=== PATIENT | female | born 2000 | race Caucasian/White ===

== ENCOUNTER 2023-10-18 21:43 | Observation (INO) ==
[2023-10-18 22:20] LABS: Basophils # (auto) 0.04 K/uL (0.00-0.20); Basophils % (auto) 0.3 %; Eosinophils # (auto) 0.01 K/uL (0.00-0.50); Eosinophils % (auto) 0.1 %; Hematocrit (blood only) 36.1 % (37.0-47.0); Hemoglobin 12.7 g/dl (12.0-16.0); Immature Granulocytes # (auto) 0.06 K/uL (0.01-0.20); Immature Granulocytes % (auto) 0.5 %; Lymphocytes # (auto) 1.38 K/uL (1.20-3.40); Lymphocytes % (auto) 10.8 %; Mean Corpuscular Hemoglobin 30.7 pg (25.0-34.0); Mean Corpuscular Hgb Conc 35.2 g/dL (32.0-36.0); Mean Corpuscular Volume 87.2 fL (80.0-100.0); Mean Platelet Volume 8.4 fL (9.4-12.4); Neutrophils # (auto) 10.41 K/uL (1.40-6.50); Neutrophils % (auto) 81.3 %; Platelet Count 322 K/uL (130-400); RDW Coefficient of Variation 11.8 % (11.5-14.5); RDW Standard Deviation 37.5 fL (36.4-46.3); Red Blood Count 4.14 M/uL (4.20-5.40)
[2023-10-18 22:29] LABS: Appearance Urine Turbid (Clear); Bacteria Urine Automated 4+ (None Seen); Bilirubin Urine Negative (Negative); Blood Urine 1+ (Negative); Color Urine Yellow; Glucose Urine UA Negative (Negative); Ketones Urine 3+ (Negative); Leukocyte Esterase Urine 3+ (Negative); Mucus Urine Present (None Prsent); Nitrite Urine Positive (Negative); Protein Urine 1+ (Negative); Specific Gravity Urine 1.017 (1.000-1.030); Urobilinogen Urine Negative (Negative); WBC Urine Automated >50 /hpf (0-5); pH Urine 5.5 (4.5-7.5)
[2023-10-18 22:40] LABS: Alanine Aminotransferase 7 U/L (7-52); Albumin Globulin Ratio 1.4 (0.9-2); Albumin Level 4.5 gm/dl (3.4-5.0); Alkaline Phosphatase 79 U/L (34-104); Anion Gap 9 (3-11); Aspartate Aminotransferase 10 U/L (13-39); BUN Creatinine Ratio 8.6 (10-20); Bilirubin,Total 0.7 mg/dl (0.2-1.0); Blood Urea Nitrogen 5 mg/dl (6-23); Calcium 9.4 mg/dl (8.6-10.3); Carbon Dioxide 24 mmol/L (21-32); Chloride 103 mmol/L (98-107); Creatinine Clr Calc Pharmacy 147.2 ml/min; Est GFR (African American) > 150.0 ml/min; Est GFR (Non-African American) 129.9 ml/min; Globulin 3.2 gm/dl (2.5-4.0); Glucose 99 mg/dl (70-99(Fasting)); Potassium 3.4 mmol/L (3.5-5.1); Sodium 136 mmol/L (136-145); Total Protein 7.7 gm/dl (6.0-8.3)
[2023-10-18] MEDS: ACETAMINOPHEN 500 MG TAB PO STA (23:53)
[2023-10-18] MEDS: fentaNYL citrate PF 100 MCG/2 ML VIAL IV STA (23:53)
[2023-10-18] MEDS: ONDANSETRON INJ 2 MG/ML 2 ML VIAL IV STA (23:53)
[2023-10-18] MEDS: SODIUM CHLORIDE 0.9% 1,000 ML IV SCH (23:56)
[2023-10-19 00:03] LABS: Magnesium 1.7 mg/dl (1.7-2.4)
[2023-10-19] MEDS: cefTRIAXone SODIUM 1,000 MG/50 ML BAG IV STA (00:18)
--- NOTE | 2023-10-19 00:29 | Emergency Department Note ---
Impression & Plan Pyelonephritis affecting in second trimester admit to OB ED Provider Note NAME: SHALA DESAI AGE: 22 SEX: Female INFORMANT: [Patient] ED PROVIDER(S): Nataliia Britt DO CHIEF COMPLAINT: Right flank pain and fever PLAN: Disposition: admit to OB MEDICAL DECISION MAKING: this is a 22-year-old female patient who is 14 weeks who presents to the emergency department with severe right flank pain and fever that started yesterday. patient has a history of previous right-sided renal stone. Patient presents with severe nausea. Temp on presentation was 38.4. Heart rate was in the 120s. Urinalysis appears to be significantly infected. White blood cell count was 12.8. H&H were stable. Potassium was 3.4. Renal function tests were normal. Procalcitonin and lactate were normal. Patient was given a dose of oral Tylenol. She was bolused with 2 L of normal saline solution. She was given a dose of IV fentanyl for severe right-sided flank pain. She was treated with IV Zofran for her nausea. Patient was medicated with a dose of IV Rocephin for presumed right-sided pyelonephritis. Patient had return of the right flank pain and was given a subsequent dose of IV fentanyl. Ultrasound was performed and no right-sided renal or ureteral stone was noted. There was no evidence of hydronephrosis on the right. I discussed the case with the fruit or nut picker on-call and they will admit the patient to the hospital for pain management and IV antibiotics. Care/management discussed with: The patient, her family, the assistant portfolio manager, and the fruit or nut picker. Triage Nursing notes: reviewed and agree With them. Vital Signs: reviewed and remarkable for tachycardia and fever Additional History obtained from: patient's mother who is a nurse Prior/ Outside/ External records reviewed: I did review a previous ultrasound report from ER visit Differential Diagnosis: pyelonephritis, infected ureteral stone, Dehydration Diagnostics, independently interpreted by me: Imaging studies: renal ultrasound: As per stat rad EKG: Sinus tachycardia at a rate of 119 with T wave inversion in the inferior leads which is rate dependent. There is no ectopy. No signs of ischemia. HPI: 22 year old Female arrives for evaluation of right flank pain and fever. patient developed severe right-sided back pain and flank pain 24 hours ago. Approximately 16 hours ago, the patient developed a fever and significant nausea. Patient is 14 weeks and has a known history of a right sided kidney stone. PAST MEDICAL HISTORY: See Below, PAST SURGICAL HISTORY: See Below, SOCIAL HISTORY: See Below, HOME MEDICATIONS: see list ALLERGIES: penicillin VITALS: See Below PHYSICAL EXAMINATION: HEENT: Head - normocephalic and atraumatic. Pupils are equal, round, and reactive to light. Extraocular eye muscles are intact, and sclera are anicteric. Nose - moist nasal mucosa without discharge. Mouth - moist buccal mucosa. Oropharynx is nonerythematous and there is no tonsillar exudate or edema noted. Neck: Supple; no Cervical lymphadenopathy Heart: tachycardic rate and regular rhythm. There is a normal S1 and S2 with no murmurs, clicks, or gallops appreciated. Lungs: Clear to auscultation bilaterally with no wheezes, rales, or rhonchi. Abdomen: Soft, completely nontender, nondistended, with good bowel sounds. There are no palpable pulsatile masses or hepatosplenomegaly. There is no guarding, rigidity, or rebound noted. Extremities: No evidence of cyanosis, clubbing, or edema. There are easily palpable peripheral pulses. Skin: hot and dry with good turgor and no rashes. emergency department treatment: Oral Tylenol, IV normal saline bolus, IV fentanyl, IV Zofran, IV received Rocephin, IV fentanyl emergency department course: The patient was evaluated in room B-8. A complete history and physical was performed. An IV lock was initiated and labs were drawn as above. Patient was given a dose of oral Tylenol. A septic protocol was performed. Blood culture was obtained. Urine specimen was obtained. Patient was bolused with 2 L of normal saline solution. She was given a dose of IV fentanyl for significant right-sided flank pain and back pain along with a dose of IV Zofran for her nausea. Urine appeared to be significantly infected. She was given a dose of IV Rocephin for presumed pyelonephritis. Patient had an ultrasound of the right kidney and collecting system to rule out an obstructing stone. This was negative. Patient had some recurrent right-sided pain and was given a second dose of IV fentanyl. I discussed the case with Dr. Schmitt who is the on-call fruit or nut picker and they will admit the patient to the hospital for IV antibiotics and IV pain management. Past Med/Surg History Problem List (Updated 10/19/23 @ 05:35 by Nataliia Britt DO) Pyelonephritis affecting in second trimester (Acute) Pyelonephritis affecting in second trimester Encounter for anatomic survey Supervision of normal intrauterine in primigravida Low iron Anemia Vitamin D deficiency B12 deficiency Renal cyst MRI- 04/2022--9 mm hemorrhagic versus proteinaceous cyst of the left kidney Abnormal CT scan, kidney CT noted 04/01/22-Heterogeneous enhancement within the kidneys Anxiety Leukocytosis Family history of other cardiovascular diseases Family history of aortic aneurysm and sent to cardiology. Contraceptive surveillance ON OCPS. DENIES FAMILY HISTORY OF BREAST CANCER OR THROMBOTIC DISORDER/STROKE. DENIES SMOKING, MIGRAINES, LIVER DISEASE, ANTICONVULSANTS OR RECENT . Medical History Lyme disease AT AGE 9. Repeat titers in Feb 2019 negative on western blot. Surgical History S/P ACL repair Family History Father Hypertension Myocardial infarction Family history of leukocytosis Diabetes Dyslipidemia Grandfather (Paternal) Aneurysm of abdominal aorta Denies family history of Ovarian cancer Prostate cancer Bipolar disorder Colorectal cancer Social History Smoking Status: Never smoker Second Hand Exposure: No; Do You Dip or Chew Tobacco: No; Hx Alcohol Use: No Hx Substance Use: No Preferred Language: Thai Communication Ability: Effective Visual Impairment: No Limitations Hearing Ability: Normal Supervisor [employer] Required: No Beliefs That Will Affect Care: None marital status: Single marital status details: Douglas (22) [phone] Current Living Situation: Family Current Living Situation Comment: lives with mom and dad, grandmother, 2 cats, gram changing litter current occupational status: employed current occupation: working at [employer] Feels Safe at Home: Yes Safety Concerns: Feels Safe At This Time Childhood Exposure to Second-Hand Smoke: No Diet: regular Diet Comment: regular caffeine: Yes during the past year weight has: remained stable Dental Care, Regularly: Yes Physical Activity Frequency: 5-6 Times per Week Seatbelt Use: always Sunscreen Use: Yes Assistive Devices: Contacts Allergies Allergies Allergy/AdvReac Type Severity Reaction Status Date / Time Penicillins Allergy Mild RASH Verified 10/06/23 08:22 Home Meds Home Medications Medication Instructions Recorded Confirmed [id number] 1 mg tab PO 09/01/23 10/06/23 tablet Previous Rx's Medication Instructions Recorded ondansetron 4 mg disintegrating 4 mg PO Q6H PRN nausea and 09/17/23 tablet vomiting #20 tabs Results & Data (ED) Vital Signs Vital Signs - 24 hr 10/18/23 21:47 10/18/23 21:53 10/18/23 21:59 Temperature 36.7 C 36.8 C Temperature Source Oral Oral Pulse Rate 120 H 123 H Pulse Rate [Apical] 115 H Pulse Rhythm [Apical] Regular Pulse Strength [Apical] Normal Respiratory Rate 20 18 Respiratory Effort / Characteristics Non-Labored Spontaneous Non-Labored Spontaneous Respiratory Depth Normal Normal Respiratory Pattern Regular Blood Pressure 126/83 Blood Pressure [Right Arm] 102/75 Blood Pressure Mean 97 Blood Pressure Mean [Right Arm] 84 Pulse Oximetry 99 100 Oxygen Delivery Method Room Air Room Air Sepsis Recent Fever Within 48 Hours Yes Sepsis New/Unexplained Change in Mental Status No Sepsis Action Taken by Nursing No Action Required 10/18/23 22:03 10/18/23 22:30 10/18/23 23:27 Temperature 38.4 C H Temperature Source Oral Pulse Rate 112 H 108 H Pulse Rate [Apical] 117 H Pulse Rhythm [Apical] Regular Pulse Strength [Apical] Respiratory Rate 19 22 20 Respiratory Effort / Characteristics Respiratory Depth Respiratory Pattern Blood Pressure 102/75 100/65 Blood Pressure [Right Arm] Blood Pressure Mean 84 76 Blood Pressure Mean [Right Arm] Pulse Oximetry 100 100 97 Oxygen Delivery Method Room Air Sepsis Recent Fever Within 48 Hours Sepsis New/Unexplained Change in Mental Status Sepsis Action Taken by Nursing 10/19/23 00:00 10/19/23 01:05 10/19/23 01:07 Temperature 37.3 C Temperature Source Oral Pulse Rate 110 H 117 H Pulse Rate [Apical] Pulse Rhythm [Apical] Pulse Strength [Apical] Respiratory Rate 18 18 Respiratory Effort / Characteristics Respiratory Depth Respiratory Pattern Blood Pressure 115/69 123/74 Blood Pressure [Right Arm] Blood Pressure Mean 84 87 Blood Pressure Mean [Right Arm] Pulse Oximetry 97 98 Oxygen Delivery Method Sepsis Recent Fever Within 48 Hours Sepsis New/Unexplained Change in Mental Status Sepsis Action Taken by Nursing 10/19/23 02:00 10/19/23 02:33 10/19/23 02:43 Temperature 37.3 C Temperature Source Oral Pulse Rate 105 H 101 H Pulse Rate [Apical] Pulse Rhythm [Apical] Pulse Strength [Apical] Respiratory Rate 18 24 Respiratory Effort / Characteristics Respiratory Depth Respiratory Pattern Blood Pressure 120/78 107/63 Blood Pressure [Right Arm] Blood Pressure Mean 88 77 Blood Pressure Mean [Right Arm] Pulse Oximetry 98 98 Oxygen Delivery Method Sepsis Recent Fever Within 48 Hours Sepsis New/Unexplained Change in Mental Status Sepsis Action Taken by Nursing Laboratory Data 10/18/23 22:03 10/18/23 22:03 Lab Results 10/18/23 10/19/23 Range/Units 22:03 00:02 WBC 12.80 H (4.8-10.8) K/ul RBC 4.14 L (4.20-5.40) M/uL Hgb 12.7 (12.0-16.0) g/dl Hct 36.1 L (37.0-47.0) % MCV 87.2 (80.0-100.0) fL MCH 30.7 (25.0-34.0) pg MCHC 35.2 (32.0-36.0) g/dL RDW Std Deviation 37.5 (36.4-46.3) fL RDW Coeff of Herminia 11.8 (11.5-14.5) % Plt Count 322 (130-400) K/uL MPV 8.4 L (9.4-12.4) fL Immature Gran % (Auto) 0.5 % Neut % (Auto) 81.3 % Lymph % (Auto) 10.8 % Elbert % (Auto) 7.0 % Eos % (Auto) 0.1 % Baso % (Auto) 0.3 % Neut # (Auto) 10.41 H (1.40-6.50) K/uL Lymph # (Auto) 1.38 (1.20-3.40) K/uL Elbert # (Auto) 0.90 H (0.11-0.59) K/uL Eos # (Auto) 0.01 (0.00-0.50) K/uL Baso # (Auto) 0.04 (0.00-0.20) K/uL Immature Gran # (Auto) 0.06 (0.01-0.20) K/uL Sodium 136 (136-145) mmol/L Potassium 3.4 L (3.5-5.1) mmol/L Chloride 103 (98-107) mmol/L Carbon Dioxide 24 (21-32) mmol/L Anion Gap 9 (3-11) BUN 5 L (6-23) mg/dl Creatinine 0.58 L (0.6-1.2) mg/dl Est Cr Clr Drug Dosing 147.2 ml/min Est GFR ( Amer) > 150.0 ml/min Est GFR (Non-Af Amer) 129.9 ml/min BUN/Creatinine Ratio 8.6 L (10-20) Glucose 99 (70-99(Fasting)) mg/dl Lactate 0.8 (0.4-2.0) mmol/L Calcium 9.4 (8.6-10.3) mg/dl Magnesium 1.7 (1.7-2.4) mg/dl Total Bilirubin 0.7 (0.2-1.0) mg/dl AST 10 L (13-39) U/L ALT 7 (7-52) U/L Alkaline Phosphatase 79 (34-104) U/L Total Protein 7.7 (6.0-8.3) gm/dl Albumin 4.5 (3.4-5.0) gm/dl Globulin 3.2 (2.5-4.0) gm/dl Albumin/Globulin Ratio 1.4 (0.9-2) Procalcitonin 0.08 (0-0.5) ng/ml Urine Color Yellow Urine Appearance Turbid A (Clear) Urine pH 5.5 (4.5-7.5) Ur Specific [place] 1.017 (1.000-1.030) Urine Protein 1+ H (Negative) Urine Glucose (UA) Negative (Negative) Urine Ketones 3+ H (Negative) Urine Blood 1+ H (Negative) Urine Nitrite Positive A (Negative) Urine Bilirubin Negative (Negative) Urine Urobilinogen Negative (Negative) Ur Leukocyte Esterase 3+ H (Negative) Urine WBC (Auto) >50 H (0-5) /hpf Urine RBC (Auto) 3-5 H (0-2) /hpf U Hyaline Cast (Auto) 3-5 H (0-2) /lpf U Epithel Cells (Auto) 3-5 H (0-2) /hpf Urine Bacteria (Auto) 4+ H (None Seen) Urine Mucus Present A (None Prsent) Administered Medications Acetaminophen (Acetaminophen 325 Mg Tab) 650 mg PO Q4H PRN PRN Reason: Pain or Fever Stop: 11/18/23 04:33 Last Admin: 10/19/23 05:07 Dose: 650 mg Documented By: MARIAMA Ondansetron HCl (Ondansetron Inj 2 Mg/Ml 2 Ml Vial) 4 mg IV Q6H PRN PRN Reason: Nausea And Vomiting Stop: 11/18/23 04:33 Last Admin: 10/19/23 05:07 Dose: 4 mg Documented By: MARIAMA Oxycodone HCl (Oxycodone Hcl Ir 5 Mg Tab (Immediate Release)) 5 mg PO Q4H PRN PRN Reason: Pain Stop: 11/02/23 04:33 Last Admin: 10/19/23 05:07 Dose: 5 mg Documented By: MARIAMA Discontinued Medications Acetaminophen (Acetaminophen 500 Mg Tab) 1,000 mg PO NOW STA Stop: 10/18/23 23:45 Last Admin: 10/18/23 23:53 Dose: 1,000 mg Documented By: BRADLEY Fentanyl Citrate (Fentanyl Citrate Pf 100 Mcg/2 Ml Vial) 50 mcg IV NOW STA Stop: 10/18/23 23:45 Last Admin: 10/18/23 23:53 Dose: 50 mcg Documented By: BRADLEY Fentanyl Citrate (Fentanyl Citrate Pf 100 Mcg/2 Ml Vial) 50 mcg IV NOW STA Stop: 10/19/23 02:55 Last Admin: 10/19/23 03:00 Dose: 50 mcg Documented By: BRADLEY Sodium Chloride (Nss) 1,000 mls @ 999 mls/hr IV .Q1H1M DOROTHEA Stop: 10/19/23 01:45 Last Infusion: 10/19/23 02:03 Dose: Infused Documented By: Admin: 10/19/23 00:57 Dose: 999 mls/hr Documented By: Infusion: 10/19/23 00:57 Dose: Infused Documented By: Admin: 10/18/23 23:56 Dose: 999 mls/hr Documented By: BRADLEY Ceftriaxone Sodium (Rocephin) 1,000 mg in 50 mls @ 100 mls/hr IV NOW STA Stop: 10/19/23 00:17 Last Infusion: 10/19/23 00:57 Dose: Infused Documented By: Admin: 10/19/23 00:18 Dose: 100 mls/hr Documented By: BRADLEY Ondansetron HCl (Ondansetron Inj 2 Mg/Ml 2 Ml Vial) 4 mg IV NOW STA Stop: 10/18/23 23:45 Last Admin: 10/18/23 23:53 Dose: 4 mg Documented By: BRADLEY Imaging Data Radiologist's Impression: Renal Ultrasound 10/18/23 23:45 Exam(s): US RENAL EXAM: US Retroperitoneal Limited, Renal CLINICAL HISTORY: Reason for exam: eval right for obstructing stone. TECHNIQUE: Real-time limited ultrasound of the retroperitoneum with image documentation. COMPARISON: September 17, 2023 FINDINGS: Right kidney: The right kidney measures 10.2 x 4.9 x 4.3 cm with slight pelviectasis. No overt hydronephrosis or nephrolithiasis. Left kidney: Unremarkable. The left kidney measures 10.5 x 6 x 5.9 cm. No hydronephrosis or calculus. Bladder: The urinary bladder is partially distended and unremarkable. The right ureteral jet is visible. IMPRESSION: The right kidney measures 10.2 x 4.9 x 4.3 cm with slight pelviectasis. No overt hydronephrosis or nephrolithiasis is seen involving either kidney. Electronically signed by: Mike Evans MD 10/19/23 02:27 AM Discharge Plan Visit Data Chief Complaint: Kidney Stone Stated Complaint: KIDNEY STONE ED Provider: Nataliia Britt Discharge Problem: Pyelonephritis affecting in second trimester Patient Disposition: Admitted As Inpatient Discharge Instructions Interventions: ED Discharge Assessment Last Done: 10/19/23 03:25
--- NOTE | 2023-10-19 02:28 | Ultrasound Report ---
Exam(s): US RENAL EXAM: US Retroperitoneal Limited, Renal CLINICAL HISTORY: Reason for exam: eval right for obstructing stone. TECHNIQUE: Real-time limited ultrasound of the retroperitoneum with image documentation. COMPARISON: September 17, 2023 FINDINGS: Right kidney: The right kidney measures 10.2 x 4.9 x 4.3 cm with slight pelviectasis. No overt hydronephrosis or nephrolithiasis. Left kidney: Unremarkable. The left kidney measures 10.5 x 6 x 5.9 cm. No hydronephrosis or calculus. Bladder: The urinary bladder is partially distended and unremarkable. The right ureteral jet is visible. IMPRESSION: The right kidney measures 10.2 x 4.9 x 4.3 cm with slight pelviectasis. No overt hydronephrosis or nephrolithiasis is seen involving either kidney. Electronically signed by: Mike Evans MD 10/19/23 02:27 AM
[2023-10-19] MEDS: fentaNYL citrate PF 100 MCG/2 ML VIAL IV STA (03:00)
--- NOTE | 2023-10-19 03:22 | OB/GYN Consultation ---
Date of Consultation October 19, 2023 Assessment & Plan (1) Pyelonephritis affecting in second trimester: Plan plan obs and monitor response to abx. recheck labs. pain meds prn. allow po as n/v subsides. fhts qshift. History of Present Illness Reason for Consultation: pyelonephritis in Requesting Physician: Dr. Britt Attending Physician: Dr. Britt History of Present Illness 22yo at 14wks ega presented to ER with flank pain and findings concerning for pyelonephritis. Patient came to ER when for 2 days she had unrelenting back pain. Has had nausea in that time and has not eaten. She has history of right renal stone noted since last month and thought her right sided pain were due to that and tried to push fluids and give time but when nothing changed came to ER. Evaluation in ER included elevated temp. Patient had ua concerning for uti, as well as right sided flank pain. Suspected to have pyelonephritis by ER MD and I was called. Given rocephin in ER and using iv pain meds to manage pain. Of note also continues with nausea. She does note a history of pyelo about a year ago. Did not have dysuria, urgency or freq of urination or hematuria with her presentation, just back pain and nausea. Allergies Allergy/AdvReac Type Severity Reaction Status Date / Time Penicillins Allergy Mild RASH Verified 10/06/23 08:22 Home Medications Medication Instructions Recorded Confirmed Type [id number] 1 mg tab PO 09/01/23 10/06/23 History tablet ondansetron 4 mg disintegrating 4 mg PO Q6H PRN nausea and 09/17/23 10/06/23 Rx tablet vomiting #20 tabs Patient History Medical History Lyme disease AT AGE 9. Repeat titers in Feb 2019 negative on western blot. Surgical History S/P ACL repair Family History Father Hypertension Myocardial infarction Family history of leukocytosis Diabetes Dyslipidemia Grandfather (Paternal) Aneurysm of abdominal aorta Denies family history of Ovarian cancer Prostate cancer Bipolar disorder Colorectal cancer Social History Smoking Status: Never smoker Second Hand Exposure: No; Do You Dip or Chew Tobacco: No; Hx Alcohol Use: No Hx Substance Use: No Preferred Language: Burundian Communication Ability: Effective Visual Impairment: No Limitations Hearing Ability: Normal Exercise Equipment Repair Technician Required: No Beliefs That Will Affect Care: None marital status: Single marital status details: Douglas (22) [phone] Current Living Situation: Family Current Living Situation Comment: lives with mom and dad, grandmother, 2 cats, gram changing litter current occupational status: employed current occupation: working at [employer] Feels Safe at Home: Yes Safety Concerns: Feels Safe At This Time Childhood Exposure to Second-Hand Smoke: No Diet: regular Diet Comment: regular caffeine: Yes during the past year weight has: remained stable Dental Care, Regularly: Yes Physical Activity Frequency: 5-6 Times per Week Seatbelt Use: always Sunscreen Use: Yes Assistive Devices: Contacts Review of Systems Constitutional: as per Subjective / HPI Physical Exam Constitutional: WD/WN, vitals as above Respiratory: normal respiratory effort, lungs clear to auscultation Cardiovascular: Rate/Rhythm: regular rate and regular rhythm Gastrointestinal (Abdomen): soft nt Musculoskeletal: no edema nontender calves Neurologic: grossly normal Psychiatric: A+Ox3, euthymic affect Genitourinary: + CVA tenderness (right) Results & Data Vital Signs (Past 12 Hours) Vital Signs Temp Pulse Pulse Resp BP BP Pulse Ox 10/19/23 02:43 99.1 F 10/19/23 02:33 101 H 24 107/63 98 10/19/23 02:00 105 H 18 120/78 98 10/19/23 01:07 99.1 F 10/19/23 01:05 117 H 18 123/74 98 10/19/23 00:00 110 H 18 115/69 97 10/18/23 23:27 101.1 F H 117 H 20 97 10/18/23 22:30 108 H 22 100/65 100 10/18/23 22:03 112 H 19 102/75 100 10/18/23 21:59 123 H 10/18/23 21:53 98.2 F 115 H 18 102/75 100 10/18/23 21:47 98.1 F 120 H 20 126/83 99 O2 Del Method 10/19/23 02:43 10/19/23 02:33 10/19/23 02:00 10/19/23 01:07 10/19/23 01:05 10/19/23 00:00 10/18/23 23:27 Room Air 10/18/23 22:30 10/18/23 22:03 10/18/23 21:59 10/18/23 21:53 Room Air 10/18/23 21:47 Room Air PG Care Time/CCT Total # of Minutes Spent Total Time Spent with Patient: Total time spent is greater than 50% in coordination of care (as documented) at patient's floor/unit and/or counseling patient: Coding Level of Care Code 45093 INT INP/OBS CARE 2/55MIN Diagnoses Pyelonephritis affecting in second trimester O23.02
[2023-10-19] MEDS: ACETAMINOPHEN 325 MG TAB PO PRN (05:07)
[2023-10-19] MEDS: oxyCODONE HCL IR 5 MG TAB (IMMEDIATE RELEASE) PO PRN (05:07)
[2023-10-19] MEDS: ONDANSETRON INJ 2 MG/ML 2 ML VIAL IV PRN (05:07)
[2023-10-19 06:14] LABS: Basophils # (auto) 0.03 K/uL (0.00-0.20); Basophils % (auto) 0.2 %; Hematocrit (blood only) 31.5 % (37.0-47.0); Hemoglobin 11.2 g/dl (12.0-16.0); Immature Granulocytes # (auto) 0.06 K/uL (0.01-0.20); Immature Granulocytes % (auto) 0.4 %; Lymphocytes # (auto) 1.32 K/uL (1.20-3.40); Lymphocytes % (auto) 9.7 %; Mean Corpuscular Hgb Conc 35.6 g/dL (32.0-36.0); Mean Corpuscular Volume 87.3 fL (80.0-100.0); Mean Platelet Volume 8.7 fL (9.4-12.4); Monocytes # (auto) 1.25 K/uL (0.11-0.59); Monocytes % (auto) 9.2 %; Neutrophils # (auto) 10.88 K/uL (1.40-6.50); Neutrophils % (auto) 80.5 %; Platelet Count 288 K/uL (130-400); RDW Coefficient of Variation 11.6 % (11.5-14.5); RDW Standard Deviation 37.2 fL (36.4-46.3); Red Blood Count 3.61 M/uL (4.20-5.40); White Blood Count 13.54 K/ul (4.8-10.8)
[2023-10-19] MEDS: MoRPHine SULFATE 2 MG/ML CARP IV PRN (09:43)
[2023-10-19] MEDS: LACTATED RINGER'S 1,000 ML IV SCH (09:44)
--- NOTE | 2023-10-19 13:29 | Electrocardiogram Report ---
Test Reason : Blood Pressure : */* mmHG Vent. Rate : 119 BPM Atrial Rate : 119 BPM P-R Int : 120 ms QRS Dur : 78 ms QT Int : 328 ms P-R-T Axes : 46 72 -8 degrees QTcB Int : 461 ms Sinus tachycardia Nonspecific ST and T wave abnormality Abnormal ECG Confirmed by Jayden Everett ([id number]) on 10/19/2023 1:29:26 PM Referred By: REFERRED SELF Confirmed By: Jayden Everett
[2023-10-19] MEDS: cefTRIAXone SODIUM 1,000 MG/50 ML BAG IV SCH (22:06)
[2023-10-20] MEDS: PROMETHAZINE 25 MG/51 ML BAG IV PRN (01:25)
[2023-10-20 07:03] LABS: Basophils # (auto) 0.03 K/uL (0.00-0.20); Basophils % (auto) 0.2 %; Eosinophils # (auto) 0.02 K/uL (0.00-0.50); Eosinophils % (auto) 0.2 %; Hematocrit (blood only) 30.6 % (37.0-47.0); Hemoglobin 10.6 g/dl (12.0-16.0); Immature Granulocytes # (auto) 0.06 K/uL (0.01-0.20); Immature Granulocytes % (auto) 0.5 %; Lymphocytes # (auto) 1.93 K/uL (1.20-3.40); Mean Corpuscular Hemoglobin 30.4 pg (25.0-34.0); Mean Corpuscular Hgb Conc 34.6 g/dL (32.0-36.0); Mean Corpuscular Volume 87.7 fL (80.0-100.0); Mean Platelet Volume 8.5 fL (9.4-12.4); Monocytes # (auto) 1.05 K/uL (0.11-0.59); Monocytes % (auto) 8.2 %; Neutrophils # (auto) 9.79 K/uL (1.40-6.50); Neutrophils % (auto) 75.9 %; Platelet Count 259 K/uL (130-400); RDW Coefficient of Variation 11.9 % (11.5-14.5); RDW Standard Deviation 38.1 fL (36.4-46.3); Red Blood Count 3.49 M/uL (4.20-5.40); White Blood Count 12.88 K/ul (4.8-10.8)
--- NOTE | 2023-10-20 07:24 | Obstetrical Progress Note ---
Date of Service October 20, 2023 Assessment & Plan (1) Pyelonephritis affecting in second trimester: Plan: Plan to continue rocephin until 24-48h afebrile. Continue daily FHT. Admission and Anticipated Discharge Date Admission Date: October 19, 2023 Subjective Awake in bed this morning. Feeling somewhat better - has not felt feverish since yesterday (last recorded fever 38.1 @ 1337). Minimal appetite, some nausea, no vomiting. Has been doing ok with PO fluids. Physical Exam Physical Exam: Gen AAOx3 NAD Abd: soft, 14w gravid Ext: no edema Results & Data Vital Signs (Past 12 Hours) Vital Signs Temp Pulse Resp BP Pulse Ox O2 Del Method 10/20/23 04:45 36.8 C 103 H 14 97/51 L 97 Room Air 10/20/23 01:00 36.8 C 109 H 16 116/66 97 Room Air 10/19/23 19:45 36.6 C 97 H 16 111/76 98 Room Air PG Care Time/CCT Total # of Minutes Spent Total Time Spent with Patient: Total time spent is greater than 50% in coordination of care (as documented) at patient's floor/unit and/or counseling patient: Coding Level of Care Code None Diagnoses Pyelonephritis affecting in second trimester O23.02
[2023-10-20 18:55] VITALS: O2SAT 98
[2023-10-20 23:00] VITALS: PULSE 87; RESP 16; TEMP 98.1
[2023-10-21 05:41] VITALS: BP 108/66
--- NOTE | 2023-10-21 08:55 | Obstetrical Progress Note ---
Date of Service October 21, 2023 Assessment & Plan (1) Pyelonephritis affecting in second trimester: Plan: ready for discharge today script sent for Keflex 500mg [id number] for 7 days follow up in office in 2 weeks for JOSE visit - sooner if any fever, flank pain or other concerns will do JARON urine after finishes Keflex- 3-5 days after she is done with the antibiotic. Admission and Anticipated Discharge Date Admission Date: October 19, 2023 Subjective feels well this morning. no flank pain. no fever or chills. afebrile for over 36 hours. no bleeding or cramping Review of Systems Review of Systems: All systems reviewed & are unremarkable except as noted in HPI & below Physical Exam Constitutional: WD/WN, vitals as above Musculoskeletal: no CVAT bilaterally Psychiatric: A+Ox3, euthymic affect Results & Data Vital Signs (Past 12 Hours) Vital Signs Temp Pulse Resp BP BP Pulse Ox O2 Del Method 10/21/23 05:39 98.1 F 87 16 96/51 L 108/66 98 10/20/23 22:59 98.1 F 87 16 96/51 L 98 Room Air PG Care Time/CCT Total # of Minutes Spent Total Time Spent with Patient: Total time spent is greater than 50% in coordination of care (as documented) at patient's floor/unit and/or counseling patient: Coding Level of Care Code 96481 SUB INP/OBS CARE 25MIN Diagnoses Pyelonephritis affecting in second trimester O23.02
--- NOTE | 2023-10-25 17:01 | Discharge Summary ---
Date of Service Date of admission: October 19, 2023 Date of discharge: Oct 21, 2023 Admission HPI Per Admitting Provider 22yo at 14wks caroline presented to ER with flank pain and findings concerning for pyelonephritis. Patient came to ER when for 2 days she had unrelenting back pain. Has had nausea in that time and has not eaten. She has history of right renal stone noted since last month and thought her right sided pain were due to that and tried to push fluids and give time but when nothing changed came to ER. Evaluation in ER included elevated temp. Patient had ua concerning for uti, as well as right sided flank pain. Suspected to have pyelonephritis by ER MD and I was called. Given rocephin in ER and using iv pain meds to manage pain. Of note also continues with nausea. She does note a history of pyelo about a year ago. Did not have dysuria, urgency or freq of urination or hematuria with her presentation, just back pain and nausea. Discharge Data Consultations 10/19/23 03:03 ED Decision to Admit Stat Hospital Course (1) Pyelonephritis affecting in second trimester: The patient was admittted and continued on IV rocephin daily. Her urine culture returned and organism sensitive to this antibiotic. She remained afebrile x >36hrs and had improvement in flank pain and was stable for discharge home on her hd #3. She was given script for course of oral antibiotics, keflex x one week and told to followup in the office in 2weeks. Coding Level of Care Code None Diagnoses Pyelonephritis affecting in second trimester O23.02
== END 2023-10-21 07:15 | disposition home or self-care (01) ==
LOC: 4E1 21:43 → ED 21:43 → 4E1 10-19 03:25

== ENCOUNTER 2024-03-09 04:28 | Inpatient (IN) ==
--- NOTE | 2024-03-09 04:49 | Emergency Department Note ---
Impression & Plan Fever, Back pain, , Pyelonephritis ED Provider Note ED Provider Note NAME: SHALA DESAI AGE:23 SEX: Female : 2000 ARRIVES VIA: Private vehicle INFORMANT: Patient ED PROVIDER(s): Carly Weir DO CHIEF COMPLAINT: Fever, back pain, HPI: This is a 23-year-old female G1, P0 at 34 weeks who presents to the emergency department due to concern for fever and back pain. Patient states she first began feeling unwell early Tuesday morning. She states fevers developed and got as high as 102 F. She developed increased back pain that feels similar to a prior episode of pyelonephritis when she was only 16 weeks . She states she has had recurrent UTIs throughout the and was placed on Macrobid prophylactically. She states earlier in February she did have norovirus additionally. She states she has been drinking fluids but has not otherwise had an appetite or been eating much in the way of solids. She states she is still feeling baby move. She does follow with Sherri Skinner LOSS CONTROL REPRESENTATIVE. No recent leg swelling, no overt vomiting, no worsening URI symptoms. PAST MEDICAL HISTORY:See Below PAST SURGICAL HISTORY:See Below FAMILY HISTORY:See Below SOCIAL HISTORY:See Below HOME MEDICATIONS:See Below ALLERGIES:See Below VITALS:See Below PHYSICAL EXAMINATION: GENERAL: alert, ill appearing, well nourished, no distress, non-toxic EYE EXAM: normal conjunctiva, PERRL and EOM's grossly intact OROPHARYNX: no exudate, no erythema, lips, buccal mucosa, and tongue normal and mucous membranes are moist NECK: supple, no nuchal rigidity, no adenopathy, non-tender LUNGS: Clear to auscultation. Normal chest wall mechanics, no w/r/r HEART: no murmurs, S1 normal and S2 normal ABDOMEN: abdomen soft, non-tender, normo-active bowel sounds, no rebound or guarding. Fundus palpable a few centimeters below the xiphoid process BACK: Back is symmetrical on inspection and there is no deformity, no midline tenderness, no CVA tenderness. SKIN: no rashes, petechiae, orbruising UPPER EXTREMITIES: upper extremities are grossly normal. FROM, nml pulses b/l. LOWER EXTREMITIES: No pitting edema. FROM, nml pulses b/l. NEURO EXAM: Normal sensorium, cranial nerves II-XII grossly intact, normal speech, no facial droop,nogross weakness of arms, no gross weakness of legs. Gross sensation intact. No ataxia. Vital Signs: reviewed and remarkable Differential Diagnosis: uti, pyelo, viral syndrome, dehydration, margaux, sepsis, ureterolithiasis, pna, as well as others were considered MEDICAL DECISION MAKING: This is a 23 yo female at 35 weeks who presents with back pain, fevers, hx of UTI. She was afebrile but tachycardic and ill appearing on arrival. Labs drawn and sent, IV established, EKG performed and interpreted at bedside, and patient placed on telemetry. Urine collected and viral swab performed additionally. Patient had tylenol captain/airline pilot. She was started on IVF and sent for US renal due to concern for recurrent pyelo. She has been on prophylactic antibiotics due to recurrent UTI's. Patient HR began to improve on IVF. While she was at US I reviewed urine cultures and discussed antibiotic choice with the pharmacist. A second liter given, cultures and lactic acid added and she was given IV antibiotics. I contacted pesticide control inspector rock crushing machine operator due to concern for pyelonephritis in a 3rd trimester patient and risk of labor. Given reported fever at home, tachycardia, and urinary source of infection, patient likely with evolving sepsis. She had a significantly elevated leukocytosis and procal. She received >2L IVF which is greater than 30 ml/kg based on IBW. Patient and family updated on all results at bedside. We discussed need for further inpatient evaluation and mgmt and they were in agreement. Consultation(s): 0544: Discussed with Dr. Adams, LOSS CONTROL REPRESENTATIVE, via [place] text. Will admit the patient to their service. ER Treatment Provided: See below Diagnostics Interpreted By Me: -ECG: Sinus tachycardia 109, normal axis, normal intervals, no acute ST/T wave changes -Cardiac Monitoring: An order was placed for continuous cardiac monitoring. The monitor shows a rate of 142 with sinus tachycardia rhythm. -Laboratory studies: As stated above and show below. -Imaging studies: US: +b/l hydro, no stone Triage Nursing Note Reviewed Prior/Outside Records Reviewed Past Med/Surg History Problem List (Updated 03/11/24 @ 17:40 by Carly eWir DO) Pyelonephritis (Acute) 34 weeks gestation of C. difficile diarrhea Pyelonephritis complicating in third trimester (Acute) Back pain (Acute) Fever (Acute) Gestational diabetes Pyelonephritis affecting in second trimester (Acute) Pyelonephritis affecting in second trimester Encounter for anatomic survey Supervision of normal intrauterine in primigravida Low iron Anemia Vitamin D deficiency B12 deficiency Renal cyst MRI- 04/2022--9 mm hemorrhagic versus proteinaceous cyst of the left kidney Abnormal CT scan, kidney CT noted 04/01/22-Heterogeneous enhancement within the kidneys Anxiety Leukocytosis Family history of other cardiovascular diseases Family history of aortic aneurysm and sent to cardiology. Contraceptive surveillance ON OCPS. DENIES FAMILY HISTORY OF BREAST CANCER OR THROMBOTIC DISORDER/STROKE. DENIES SMOKING, MIGRAINES, LIVER DISEASE, ANTICONVULSANTS OR RECENT . Medical History Lyme disease AT AGE 9. Repeat titers in Feb 2019 negative on western blot. Surgical History S/P ACL repair Family History Father Hypertension Myocardial infarction Family history of leukocytosis Diabetes Dyslipidemia Grandfather (Paternal) Aneurysm of abdominal aorta Denies family history of Ovarian cancer Prostate cancer Bipolar disorder Colorectal cancer Social History Smoking Status: Never smoker Second Hand Exposure: No; Do You Dip or Chew Tobacco: No; Hx Alcohol Use: No Hx Substance Use: No Preferred Language: [place] Communication Ability: Effective Visual Impairment: No Limitations Hearing Ability: Normal Auto Travel Counselor Required: No Beliefs That Will Affect Care: None marital status: Single marital status details: Douglas (22) [phone] Current Living Situation: Parent Current Living Situation Comment: lives with mom and dad, grandmother, 2 cats, gram changing litter current occupational status: employed current occupation: working at [employer] Feels Safe at Home: Yes Childhood Exposure to Second-Hand Smoke: No Diet: regular Diet Comment: regular caffeine: Yes during the past year weight has: remained stable Dental Care, Regularly: Yes Physical Activity Frequency: 5-6 Times per Week Seatbelt Use: always Sunscreen Use: Yes Assistive Devices: None Allergies Allergies Allergy/AdvReac Type Severity Reaction Status Date / Time Penicillins Allergy Mild RASH Verified 03/09/24 08:15 Home Meds Home Medications Medication Instructions Recorded Confirmed [id number] 1 mg 1 tab PO DAILY 09/01/23 03/09/24 tablet Previous Rx's Medication Instructions Recorded ondansetron 4 mg disintegrating 4 mg PO Q6H PRN nausea and 10/21/23 tablet vomiting #20 tabs acetone (urine) test (Ketone Urine #50 ea 12/08/23 Test strips) blood sugar diagnostic (OneTouch #150 ea 12/08/23 Verio test strips) lancets 33 gauge (OneTouch Delica #150 ea 12/08/23 Plus Lancet) blood-glucose meter (OneTouch #1 ea 01/02/24 Verio Reflect Meter) nitrofurantoin 100 mg PO DAILY #30 caps 02/29/24 monohydrate/macrocrystals 100 mg capsule (Macrobid) Results & Data (ED) Vital Signs Vital Signs - 24 hr 03/09/24 04:30 03/09/24 04:49 Temperature 36.7 C Temperature Source Oral Pulse Rate 142 H 122 H Respiratory Rate 18 Respiratory Effort / Characteristics Non-Labored Spontaneous Respiratory Depth Normal Blood Pressure 112/76 Blood Pressure Mean 88 Pulse Oximetry 97 Oxygen Delivery Method Room Air Sepsis Recent Fever Within 48 Hours Yes Sepsis New/Unexplained Change in Mental Status No Sepsis Action Taken by Nursing No Action Required Laboratory Data 03/11/24 06:41 03/11/24 06:41 Lab Results 03/09/24 03/09/24 03/09/24 Range/Units 04:42 05:54 06:10 WBC 26.68 H (4.8-10.8) K/ul RBC 4.25 (4.20-5.40) M/uL Hgb 12.4 (12.0-16.0) g/dl Hct 35.7 L (37.0-47.0) % MCV 84.0 (80.0-100.0) fL MCH 29.2 (25.0-34.0) pg MCHC 34.7 (32.0-36.0) g/dL RDW Std Deviation 37.2 (36.4-46.3) fL RDW Coeff of Herminia 12.4 (11.5-14.5) % Plt Count 359 (130-400) K/uL MPV 8.9 L (9.4-12.4) fL Immature Gran % (Auto) 0.7 % Neut % (Auto) 87.3 % Lymph % (Auto) 3.7 % Cowley % (Auto) 7.9 % Eos % (Auto) 0.3 % Baso % (Auto) 0.1 % Neut # (Auto) 23.26 H (1.40-6.50) K/uL Lymph # (Auto) 1.00 L (1.20-3.40) K/uL Cowley # (Auto) 2.11 H (0.11-0.59) K/uL Eos # (Auto) 0.09 (0.00-0.50) K/uL Baso # (Auto) 0.04 (0.00-0.20) K/uL Immature Gran # (Auto) 0.18 (0.01-0.20) K/uL Dohle Bodies Polychromasia 1+ Echinocytes Sodium 133 L (136-145) mmol/L Potassium 2.9 L (3.5-5.1) mmol/L Chloride 103 (98-107) mmol/L Carbon Dioxide 18 L (21-32) mmol/L Anion Gap 12 H (3-11) BUN 5 L (6-23) mg/dl Creatinine 0.76 (0.6-1.2) mg/dl Est Cr Clr Drug Dosing 114.3 ml/min eGFR 112.15 BUN/Creatinine Ratio 6.6 L (10-20) Glucose 169 H (70-99(Fasting)) mg/dl Lactate 1.1 (0.4-2.0) mmol/L Calcium 8.5 L (8.6-10.3) mg/dl Magnesium 1.3 L (1.7-2.4) mg/dl Total Bilirubin 1.6 H (0.2-1.0) mg/dl AST 13 (13-39) U/L ALT 10 (7-52) U/L Alkaline Phosphatase 154 H (34-104) U/L Total Protein 7.0 (6.0-8.3) gm/dl Albumin 3.5 (3.4-5.0) gm/dl Globulin 3.5 (2.5-4.0) gm/dl Albumin/Globulin Ratio 1.0 (0.9-2) Lipase 15 (11-82) U/L Procalcitonin 36.90 H (0-0.5) ng/ml Urine Color [place] Urine Appearance Cloudy A (Clear) Urine pH 5.5 (4.5-7.5) Ur Specific [place] 1.020 (1.000-1.030) Urine Protein 2+ H (Negative) Urine Glucose (UA) Negative (Negative) Urine Ketones 4+ H (Negative) Urine Blood 2+ H (Negative) Urine Nitrite Negative (Negative) Urine Bilirubin 1+ H (Negative) Urine Urobilinogen Negative (Negative) Ur Leukocyte Esterase 2+ H (Negative) Urine WBC (Auto) >50 H (0-5) /hpf Urine RBC (Auto) >20 H (0-2) /hpf U Hyaline Cast (Auto) 0-2 (0-2) /lpf U Epithel Cells (Auto) 3-5 H (0-2) /hpf Urine Bacteria (Auto) 2+ H (None Seen) Stl C. diff Tox B Gene (Neg) Stl C.difficile Tox A&B (Negative) Treponema pallidum Ab (Negative) Adenovirus (PCR) Not Detected (NotDetected) B. pertussis DNA (PCR) Not Detected (NotDetected) B.parapertussis DNA PCR Not Detected (NotDetected) C. pneumoniae DNA (PCR) Not Detected (NotDetected) Coronavirus OC43 (PCR) Not Detected (NotDetected) Coronavirus HKU1 (PCR) Not Detected (NotDetected) Coronavirus 229E (PCR) Not Detected (NotDetected) SARS-CoV-2 (PCR) Not Detected (NotDetected) Coronavirus NL63 (PCR) Not Detected (NotDetected) Enterobacterales (PCR) DETECTED A (NotDetected) Human Metapneumovir PCR Not Detected (NotDetected) Influenza Type A (PCR) Not Detected (NotDetected) Influenza Type B (PCR) Not Detected (NotDetected) K. pneumoniae group (PCR) DETECTED A (NotDetected) M. pneumoniae (PCR) Not Detected (NotDetected) Parainfluenza 1 (PCR) Not Detected (NotDetected) Parainfluenza 2 (PCR) Not Detected (NotDetected) Parainfluenza 3 (PCR) Not Detected (NotDetected) Parainfluenza 4 (PCR) Not Detected (NotDetected) RSV (PCR) Not Detected (NotDetected) Entero/Rhino (PCR) Not Detected (NotDetected) mcr-1 Colistin Res Gene PCR Not Detected (NotDetected) blaIMP Car res Gene PCR Not Detected (NotDetected) KPC-Carbap Res Gene PCR Not Detected (NotDetected) blaNDM Car Res Gene PCR Not Detected (NotDetected) OXA-48 Carbapenem Resis Gene (PCR) Not Detected (NotDetected) blaVIM Car Res Gene PCR Not Detected (NotDetected) CTX-M Gene Resistance (PCR) DETECTED A* (NotDetected) Bld Cult ID Panel PCR See PCR Comment (NotDetected) 03/09/24 03/09/24 03/09/24 Range/Units 07:57 12:50 15:50 WBC 26.04 H (4.8-10.8) K/ul RBC 3.66 L (4.20-5.40) M/uL Hgb 10.7 L (12.0-16.0) g/dl Hct 31.3 L (37.0-47.0) % MCV 85.5 (80.0-100.0) fL MCH 29.2 (25.0-34.0) pg MCHC 34.2 (32.0-36.0) g/dL RDW Std Deviation 39.5 (36.4-46.3) fL RDW Coeff of Herminia 12.7 (11.5-14.5) % Plt Count 304 (130-400) K/uL MPV 8.9 L (9.4-12.4) fL Immature Gran % (Auto) 1.3 % Neut % (Auto) 86.8 % Lymph % (Auto) 4.3 % Cowley % (Auto) 7.5 % Eos % (Auto) 0.0 % Baso % (Auto) 0.1 % Neut # (Auto) 22.59 H (1.40-6.50) K/uL Lymph # (Auto) 1.12 L (1.20-3.40) K/uL Cowley # (Auto) 1.96 H (0.11-0.59) K/uL Eos # (Auto) 0.00 (0.00-0.50) K/uL Baso # (Auto) 0.03 (0.00-0.20) K/uL Immature Gran # (Auto) 0.34 H (0.01-0.20) K/uL Dohle Bodies Polychromasia Echinocytes Sodium 135 L (136-145) mmol/L Potassium 3.6 D (3.5-5.1) mmol/L Chloride 110 H (98-107) mmol/L Carbon Dioxide 17 L (21-32) mmol/L Anion Gap 8 (3-11) BUN 4 L (6-23) mg/dl Creatinine 0.59 L (0.6-1.2) mg/dl Est Cr Clr Drug Dosing 149.5 ml/min eGFR 128.98 BUN/Creatinine Ratio 6.8 L (10-20) Glucose 98 (70-99(Fasting)) mg/dl Lactate 1.1 (0.4-2.0) mmol/L Calcium 8.0 L (8.6-10.3) mg/dl Magnesium 1.9 (1.7-2.4) mg/dl Total Bilirubin 0.7 D (0.2-1.0) mg/dl AST 11 L (13-39) U/L ALT 9 (7-52) U/L Alkaline Phosphatase 124 H (34-104) U/L Total Protein 5.7 L (6.0-8.3) gm/dl Albumin 2.9 L (3.4-5.0) gm/dl Globulin 2.8 (2.5-4.0) gm/dl Albumin/Globulin Ratio 1.0 (0.9-2) Lipase (11-82) U/L Procalcitonin (0-0.5) ng/ml Urine Color Urine Appearance (Clear) Urine pH (4.5-7.5) Ur Specific [place] (1.000-1.030) Urine Protein (Negative) Urine Glucose (UA) (Negative) Urine Ketones (Negative) Urine Blood (Negative) Urine Nitrite (Negative) Urine Bilirubin (Negative) Urine Urobilinogen (Negative) Ur Leukocyte Esterase (Negative) Urine WBC (Auto) (0-5) /hpf Urine RBC (Auto) (0-2) /hpf U Hyaline Cast (Auto) (0-2) /lpf U Epithel Cells (Auto) (0-2) /hpf Urine Bacteria (Auto) (None Seen) Stl C. diff Tox B Gene Positive Cdiff Gene H (Neg) Stl C.difficile Tox A&B Positive Cdiff Toxin A* (Negative) Treponema pallidum Ab Negative (Negative) Adenovirus (PCR) (NotDetected) B. pertussis DNA (PCR) (NotDetected) B.parapertussis DNA PCR (NotDetected) C. pneumoniae DNA (PCR) (NotDetected) Coronavirus OC43 (PCR) (NotDetected) Coronavirus HKU1 (PCR) (NotDetected) Coronavirus 229E (PCR) (NotDetected) SARS-CoV-2 (PCR) (NotDetected) Coronavirus NL63 (PCR) (NotDetected) Enterobacterales (PCR) (NotDetected) Human Metapneumovir PCR (NotDetected) Influenza Type A (PCR) (NotDetected) Influenza Type B (PCR) (NotDetected) K. pneumoniae group (PCR) (NotDetected) M. pneumoniae (PCR) (NotDetected) Parainfluenza 1 (PCR) (NotDetected) Parainfluenza 2 (PCR) (NotDetected) Parainfluenza 3 (PCR) (NotDetected) Parainfluenza 4 (PCR) (NotDetected) RSV (PCR) (NotDetected) Entero/Rhino (PCR) (NotDetected) mcr-1 Colistin Res Gene PCR (NotDetected) blaIMP Car res Gene PCR (NotDetected) KPC-Carbap Res Gene PCR (NotDetected) blaNDM Car Res Gene PCR (NotDetected) OXA-48 Carbapenem Resis Gene (PCR) (NotDetected) blaVIM Car Res Gene PCR (NotDetected) CTX-M Gene Resistance (PCR) (NotDetected) Bld Cult ID Panel PCR (NotDetected) 03/09/24 03/10/24 Range/Units 23:49 06:15 WBC 25.61 H (4.8-10.8) K/ul RBC 3.57 L (4.20-5.40) M/uL Hgb 10.5 L (12.0-16.0) g/dl Hct 30.9 L (37.0-47.0) % MCV 86.6 (80.0-100.0) fL MCH 29.4 (25.0-34.0) pg MCHC 34.0 (32.0-36.0) g/dL RDW Std Deviation 40.3 (36.4-46.3) fL RDW Coeff of Herminia 12.9 (11.5-14.5) % Plt Count 284 (130-400) K/uL MPV 8.8 L (9.4-12.4) fL Immature Gran % (Auto) 2.5 % Neut % (Auto) 82.9 % Lymph % (Auto) 6.1 % Cowley % (Auto) 8.2 % Eos % (Auto) 0.1 % Baso % (Auto) 0.2 % Neut # (Auto) 21.20 H (1.40-6.50) K/uL Lymph # (Auto) 1.56 (1.20-3.40) K/uL [place] # (Auto) 2.11 H (0.11-0.59) K/uL Eos # (Auto) 0.03 (0.00-0.50) K/uL Baso # (Auto) 0.06 (0.00-0.20) K/uL Immature Gran # (Auto) 0.65 H (0.01-0.20) K/uL Dohle Bodies 1+ Polychromasia Echinocytes 1+ Sodium 136 137 (136-145) mmol/L Potassium 3.8 3.5 (3.5-5.1) mmol/L Chloride 110 H 111 H (98-107) mmol/L Carbon Dioxide 17 L 16 L (21-32) mmol/L Anion Gap 9 10 (3-11) BUN 5 L 5 L (6-23) mg/dl Creatinine 0.59 L 0.56 L (0.6-1.2) mg/dl Est Cr Clr Drug Dosing 149.5 157.5 ml/min eGFR 128.98 130.62 BUN/Creatinine Ratio 8.5 L 8.9 L (10-20) Glucose 85 92 (70-99(Fasting)) mg/dl Lactate (0.4-2.0) mmol/L Calcium 8.5 L 9.0 (8.6-10.3) mg/dl Magnesium 1.8 1.7 (1.7-2.4) mg/dl Total Bilirubin 0.5 (0.2-1.0) mg/dl AST 10 L (13-39) U/L ALT 6 L (7-52) U/L Alkaline Phosphatase 115 H (34-104) U/L Total Protein 5.5 L (6.0-8.3) gm/dl Albumin 2.8 L (3.4-5.0) gm/dl Globulin 2.7 (2.5-4.0) gm/dl Albumin/Globulin Ratio 1.0 (0.9-2) Lipase (11-82) U/L Procalcitonin (0-0.5) ng/ml Urine Color Urine Appearance (Clear) Urine pH (4.5-7.5) Ur Specific [place] (1.000-1.030) Urine Protein (Negative) Urine Glucose (UA) (Negative) Urine Ketones (Negative) Urine Blood (Negative) Urine Nitrite (Negative) Urine Bilirubin (Negative) Urine Urobilinogen (Negative) Ur Leukocyte Esterase (Negative) Urine WBC (Auto) (0-5) /hpf Urine RBC (Auto) (0-2) /hpf U Hyaline Cast (Auto) (0-2) /lpf U Epithel Cells (Auto) (0-2) /hpf Urine Bacteria (Auto) (None Seen) Stl C. diff Tox B Gene (Neg) Stl C.difficile Tox A&B (Negative) Treponema pallidum Ab (Negative) Adenovirus (PCR) (NotDetected) B. pertussis DNA (PCR) (NotDetected) B.parapertussis DNA PCR (NotDetected) C. pneumoniae DNA (PCR) (NotDetected) Coronavirus OC43 (PCR) (NotDetected) Coronavirus HKU1 (PCR) (NotDetected) Coronavirus 229E (PCR) (NotDetected) SARS-CoV-2 (PCR) (NotDetected) Coronavirus NL63 (PCR) (NotDetected) Enterobacterales (PCR) (NotDetected) Human Metapneumovir PCR (NotDetected) Influenza Type A (PCR) (NotDetected) Influenza Type B (PCR) (NotDetected) K. pneumoniae group (PCR) (NotDetected) M. pneumoniae (PCR) (NotDetected) Parainfluenza 1 (PCR) (NotDetected) Parainfluenza 2 (PCR) (NotDetected) Parainfluenza 3 (PCR) (NotDetected) Parainfluenza 4 (PCR) (NotDetected) RSV (PCR) (NotDetected) Entero/Rhino (PCR) (NotDetected) mcr-1 Colistin Res Gene PCR (NotDetected) blaIMP Car res Gene PCR (NotDetected) KPC-Carbap Res Gene PCR (NotDetected) blaNDM Car Res Gene PCR (NotDetected) OXA-48 Carbapenem Resis Gene (PCR) (NotDetected) blaVIM Car Res Gene PCR (NotDetected) CTX-M Gene Resistance (PCR) (NotDetected) Bld Cult ID Panel PCR (NotDetected) Administered Medications Discontinued Medications Acetaminophen (Acetaminophen 325 Mg Tab) 650 mg PO NOW STA Stop: 03/09/24 13:48 Last Admin: 03/09/24 16:23 Dose: Not Given Documented By: KEN Betamethasone Acet/Betameth SodPhos (Betameth Sod Phos/Acetate Ia 6 Mg/Ml) 12 mg IM NOW STA Stop: 03/11/24 09:49 Last Admin: 03/11/24 10:27 Dose: 12 mg Documented By: MAHESH Calcium Carbonate (Calcium Carbonate 500 Mg Chewable Tab) 1,000 mg PO Q6 PRN PRN Reason: Indigestion Stop: 04/08/24 11:38 Last Admin: 03/09/24 12:03 Dose: 1,000 mg Documented By: KEN Mckeon Syrup (Mckeon Syrup 5 Ml Udp) 5 ml PO Q6 DOROTHEA Stop: 03/19/24 17:59 Last Admin: 03/10/24 18:08 Dose: Not Given Documented By: Admin: 03/10/24 13:10 Dose: 5 ml Documented By: TBMaurisio Admin: 03/10/24 06:05 Dose: 5 ml Documented By: Admin: 03/10/24 00:08 Dose: 5 ml Documented By: Admin: 03/09/24 16:48 Dose: 5 ml Documented By: KEN Famotidine (Famotidine 20 Mg Tab) 20 mg PO NOW STA Stop: 03/10/24 21:43 Last Admin: 03/10/24 22:05 Dose: 20 mg Documented By: HDC Fidaxomicin (Fidaxomicin 200 Mg Tab) 200 mg PO BID DOROTHEA Stop: 03/20/24 14:39 Last Admin: 03/11/24 11:09 Dose: 200 mg Documented By: Admin: 03/10/24 23:45 Dose: 200 mg Documented By: Admin: 03/10/24 15:48 Dose: 200 mg Documented By: IVORY Sodium Chloride (Nss) 1,000 mls @ 999 mls/hr IV .Q1H1M ONE Stop: 03/09/24 05:47 Last Infusion: 03/09/24 06:03 Dose: Infused Documented By: Admin: 03/09/24 04:57 Dose: 999 mls/hr Documented By: MANUEL Sodium Chloride (Nss) 1,000 mls @ 999 mls/hr IV .Q1H1M ONE Stop: 03/09/24 06:35 Last Infusion: 03/10/24 20:27 Dose: Infused Documented By: Admin: 03/09/24 06:00 Dose: 999 mls/hr Documented By: MANUEL Meropenem 500 mg/ Syringe 10 mls @ 2 mls/min IV Q8H DOROTHEA; Protocol Stop: 03/16/24 05:59 Last Admin: 03/09/24 06:27 Dose: 2 mls/min Documented By: MANUEL Meropenem 1,000 mg/ Syringe 20 mls @ 2 mls/min IV Q8H DOROTHEA; Protocol Stop: 03/16/24 07:47 Last Admin: 03/10/24 20:23 Dose: Not Given Documented By: CEDRIC Ertapenem (Invanz 1000mg) 1,000 mg in 10 mls @ 2 mls/min IV Q24H DOROTHEA Stop: 03/16/24 12:29 Last Admin: 03/11/24 12:33 Dose: 2 mls/min Documented By: Admin: 03/10/24 12:15 Dose: 2 mls/min Documented By: Admin: 03/09/24 12:33 Dose: 2 mls/min Documented By: KEN Sodium Chloride (Nss) 500 mls @ 80 mls/hr IV .Q6H15M DOROTHEA Stop: 03/09/24 15:44 Last Admin: 03/10/24 20:23 Dose: Not Given Documented By: HD Acetaminophen (Ofirmev) 1,000 mg in 100 mls @ 400 mls/hr IV NOW STA Stop: 03/09/24 09:40 Last Infusion: 03/09/24 09:57 Dose: Infused Documented By: Admin: 03/09/24 09:42 Dose: 400 mls/hr Documented By: KEN Sodium Chloride (Nss) 1,000 mls @ 80 mls/hr IV .[id number] DOROTHEA Stop: 03/10/24 09:44 Last Infusion: 03/10/24 20:26 Dose: Infused Documented By: Admin: 03/09/24 12:00 Dose: 80 mls/hr Documented By: Infusion: 03/09/24 11:53 Dose: Infused Documented By: Infusion: 03/09/24 11:00 Dose: 999 mls/hr Documented By: Admin: 03/09/24 09:20 Dose: 80 mls/hr Documented By: KEN Sodium Chloride (Nss) 1,000 mls @ 999 mls/hr IV .Q1H1M ONE Stop: 03/09/24 11:54 Last Admin: 03/10/24 20:23 Dose: Not Given Documented By: HD Magnesium Sulfate/Dextrose (Magnesium Sulfate / D5w) 1 gm in 100 mls @ 50 mls/hr IV Q2H DOROTHEA Stop: 03/09/24 14:59 Last Infusion: 03/10/24 20:26 Dose: Infused Documented By: Admin: 03/09/24 13:50 Dose: 50 mls/hr Documented By: Infusion: 03/09/24 13:40 Dose: Infused Documented By: Admin: 03/09/24 11:40 Dose: 50 mls/hr Documented By: KEN Potassium Chloride (K Porfirio / Wtr) 10 meq in 100 mls @ 100 mls/hr IV Q1H DOROTHEA Stop: 03/09/24 14:59 Last Infusion: 03/10/24 20:26 Dose: Infused Documented By: Admin: 03/09/24 15:03 Dose: 100 mls/hr Documented By: Infusion: 03/09/24 14:53 Dose: Infused Documented By: Admin: 03/09/24 13:53 Dose: 100 mls/hr Documented By: Infusion: 03/09/24 13:47 Dose: Infused Documented By: Admin: 03/09/24 12:47 Dose: 100 mls/hr Documented By: KEN Lactated Ringer's (Lr) 1,000 mls @ 125 mls/hr IV .Q8H DOROTHEA Stop: 03/09/24 21:14 Last Infusion: 03/10/24 02:15 Dose: Infused Documented By: Infusion: 03/10/24 01:42 Dose: 999 mls/hr Documented By: Admin: 03/09/24 20:53 Dose: 125 mls/hr Documented By: Infusion: 03/09/24 20:28 Dose: Infused Documented By: Infusion: 03/09/24 16:59 Dose: 125 mls/hr Documented By: Admin: 03/09/24 16:25 Dose: 999 mls/hr Documented By: Infusion: 03/09/24 16:20 Dose: Infused Documented By: Infusion: 03/09/24 16:15 Dose: 999 mls/hr Documented By: Infusion: 03/09/24 14:21 Dose: 125 mls/hr Documented By: Infusion: 03/09/24 14:05 Dose: 999 mls/hr Documented By: Infusion: 03/09/24 13:02 Dose: 125 mls/hr Documented By: Admin: 03/09/24 12:45 Dose: 999 mls/hr Documented By: KEN Potassium Chloride (K Porfirio / Wtr) 10 meq in 100 mls @ 100 mls/hr IV Q1H DOROTHEA Stop: 03/09/24 16:59 Last Infusion: 03/10/24 20:26 Dose: Infused Documented By: Admin: 03/09/24 17:19 Dose: 100 mls/hr Documented By: Infusion: 03/09/24 17:12 Dose: Infused Documented By: Admin: 03/09/24 16:12 Dose: 100 mls/hr Documented By: KEN Lactated Ringer's (Lr) 500 mls @ 999 mls/hr IV ONE ONE Stop: 03/09/24 14:45 Last Admin: 03/10/24 19:22 Dose: Not Given Documented By: HDC Acetaminophen (Ofirmev) 1,000 mg in 100 mls @ 400 mls/hr IV NOW STA Stop: 03/09/24 16:04 Last Infusion: 03/09/24 16:25 Dose: Infused Documented By: Admin: 03/09/24 16:10 Dose: 400 mls/hr Documented By: KEN Magnesium Sulfate/Dextrose (Magnesium Sulfate / D5w) 1 gm in 100 mls @ 50 mls/hr IV ONE ONE Stop: 03/09/24 17:49 Last Infusion: 03/10/24 20:26 Dose: Infused Documented By: Admin: 03/09/24 16:49 Dose: 50 mls/hr Documented By: KEN Promethazine HCl (Phenergan) 12.5 mg in 50.5 mls @ 202 mls/hr IV Q6H PRN PRN Reason: Nausea And Vomiting Stop: 04/08/24 18:59 Last Infusion: 03/10/24 21:46 Dose: Infused Documented By: Admin: 03/10/24 21:07 Dose: 202 mls/hr Documented By: Infusion: 03/10/24 11:17 Dose: Infused Documented By: Admin: 03/10/24 10:13 Dose: 202 mls/hr Documented By: Infusion: 03/09/24 21:05 Dose: Infused Documented By: Admin: 03/09/24 20:50 Dose: 202 mls/hr Documented By: TNW Acetaminophen (Ofirmev) 1,000 mg in 100 mls @ 400 mls/hr IV NOW STA Stop: 03/10/24 01:06 Last Infusion: 03/10/24 01:31 Dose: Infused Documented By: Admin: 03/10/24 01:16 Dose: 400 mls/hr Documented By: TNW Lactated Ringer's (Lr) 1,000 mls @ 125 mls/hr IV .Q8H DOROTHEA Stop: 03/10/24 10:14 Last Infusion: 03/10/24 10:35 Dose: Infused Documented By: Admin: 03/10/24 02:15 Dose: 125 mls/hr Documented By: TNW Potassium Chloride (K Porfirio / Wtr) 10 meq in 100 mls @ 100 mls/hr IV Q1H DOROTHEA Stop: 03/10/24 10:29 Last Infusion: 03/10/24 12:30 Dose: Infused Documented By: Admin: 03/10/24 11:16 Dose: 100 mls/hr Documented By: Infusion: 03/10/24 10:56 Dose: Infused Documented By: Admin: 03/10/24 09:56 Dose: 100 mls/hr Documented By: TBB Magnesium Sulfate/Dextrose (Magnesium Sulfate / D5w) 1 gm in 100 mls @ 50 mls/hr IV 0845 ONE Stop: 03/10/24 10:44 Last Infusion: 03/10/24 14:30 Dose: Infused Documented By: Admin: 03/10/24 12:27 Dose: 50 mls/hr Documented By: TBB Acetaminophen (Ofirmev) 1,000 mg in 100 mls @ 400 mls/hr IV Q8H PRN PRN Reason: Fever Stop: 03/13/24 09:35 Last Infusion: 03/10/24 21:15 Dose: Infused Documented By: Admin: 03/10/24 20:41 Dose: 400 mls/hr Documented By: Infusion: 03/10/24 10:07 Dose: Infused Documented By: Admin: 03/10/24 09:52 Dose: 400 mls/hr Documented By: TBB Lactated Ringer's (Lr) 1,000 mls @ 125 mls/hr IV .Q8H DOROTHEA Stop: 03/10/24 18:44 Last Infusion: 03/10/24 20:24 Dose: Infused Documented By: Admin: 03/10/24 11:16 Dose: 125 mls/hr Documented By: TBB Lactated Ringer's (Lr) 1,000 mls @ 125 mls/hr IV .Q8H DOROTHEA Stop: 03/11/24 05:44 Last Infusion: 03/11/24 06:18 Dose: Infused Documented By: Admin: 03/10/24 21:46 Dose: 125 mls/hr Documented By: HDC Parenteral Electrolytes (Plasma-Lyte A Ph 7.4) 500 mls @ 999 mls/hr IV .Q31M ONE Stop: 03/11/24 06:36 Last Infusion: 03/11/24 08:11 Dose: Infused Documented By: Admin: 03/11/24 07:25 Dose: 999 mls/hr Documented By: HDC Parenteral Electrolytes (Plasma-Lyte A Ph 7.4) 1,000 mls @ 125 mls/hr IV .Q8H DOROTHEA Stop: 03/12/24 06:14 Last Infusion: 03/11/24 11:59 Dose: Infused Documented By: Admin: 03/11/24 08:06 Dose: 125 mls/hr Documented By: MAHESH Acetaminophen (Ofirmev) 1,000 mg in 100 mls @ 400 mls/hr IV Q8H PRN PRN Reason: Pain or Fever Stop: 03/13/24 09:35 Last Infusion: 03/11/24 09:22 Dose: Infused Documented By: Admin: 03/11/24 08:54 Dose: 400 mls/hr Documented By: MAHESH Famotidine (Pepcid 20mg Iv Push) 20 mg in 5 mls @ 2.5 mls/min IV Q12H DOROTHEA Stop: 04/10/24 07:59 Last Admin: 03/11/24 08:44 Dose: 2.5 mls/min Documented By: MAHESH Magnesium Sulfate/Dextrose (Magnesium Sulfate / D5w) 1 gm in 100 mls @ 50 mls/hr IV Q2H DOROTHEA Stop: 03/11/24 11:44 Last Infusion: 03/11/24 12:47 Dose: Infused Documented By: Admin: 03/11/24 10:26 Dose: 50 mls/hr Documented By: Infusion: 03/11/24 10:26 Dose: Infused Documented By: Admin: 03/11/24 08:45 Dose: 50 mls/hr Documented By: MAHESH Potassium Chloride (K Porfirio / Wtr) 10 meq in 100 mls @ 100 mls/hr IV Q1H DOROTHEA Stop: 03/11/24 10:44 Last Infusion: 03/11/24 12:00 Dose: Infused Documented By: Admin: 03/11/24 10:27 Dose: 100 mls/hr Documented By: Infusion: 03/11/24 10:27 Dose: Infused Documented By: Admin: 03/11/24 10:22 Dose: 100 mls/hr Documented By: Infusion: 03/11/24 09:45 Dose: Infused Documented By: Admin: 03/11/24 08:45 Dose: 100 mls/hr Documented By: MAHESH Lactated Ringer's (Lr) 1,000 mls @ 125 mls/hr IV .Q8H DOROTHEA Stop: 04/10/24 11:59 Last Admin: 03/11/24 12:17 Dose: 125 mls/hr Documented By: MAHESH Ondansetron HCl (Ondansetron Inj 2 Mg/Ml 2 Ml Vial) Confirm Administered Dose 4 mg .ROUTE .STK-MED ONE Stop: 03/09/24 09:09 Last Admin: 03/09/24 09:19 Dose: 4 mg Documented By: KEN Ondansetron HCl (Ondansetron Inj 2 Mg/Ml 2 Ml Vial) 4 mg IV Q6H PRN PRN Reason: Nausea And Vomiting Stop: 04/08/24 09:19 Last Admin: 03/11/24 06:19 Dose: 4 mg Documented By: Admin: 03/10/24 18:40 Dose: 4 mg Documented By: Admin: 03/10/24 14:53 Dose: 4 mg Documented By: Admin: 03/10/24 06:09 Dose: 4 mg Documented By: Admin: 03/10/24 00:08 Dose: 4 mg Documented By: Admin: 03/09/24 14:58 Dose: 4 mg Documented By: KEN Potassium Chloride (Potassium Chloride Crtab 20 Meq Tabcr) 40 meq PO NOW STA Stop: 03/09/24 05:33 Last Admin: 03/09/24 06:00 Dose: 40 meq Documented By: MANUEL Vancomycin HCl (Vancomycin Hcl 125 Mg/2.5ml Soln) 125 mg PO Q6 DOROTHEA Stop: 03/19/24 17:59 Last Admin: 03/10/24 13:10 Dose: 125 mg Documented By: Admin: 03/10/24 06:05 Dose: 125 mg Documented By: Admin: 03/10/24 00:08 Dose: 125 mg Documented By: Admin: 03/09/24 16:48 Dose: 125 mg Documented By: KEN Imaging Data Radiologist's Impression: Renal Ultrasound 03/09/24 04:47 EXAM: US renal/blad retro comp CLINICAL HISTORY: HX: PATIENT IS 35 WK . LOWER BACK PAIN. RIGHT FLANK PAIN. H/O PYELO. TECHNIQUE: A renal ultrasound was performed using grayscale imaging with doppler. COMPARISON: Comparison is made with prior imaging studies dated PREV 10/19/23 AND 09/17/23. FINDINGS: Right Kidney: The right kidney measures 11.8 X 6.4 X 5.8 cm. Newly developed mild hydronephrosis. Heterogeneous mildly echogenic parenchyma with suspected increases cortical thickness. Rim perinephric fluid . Multiple echogenic foci largest measuring 4mm, no posterior shadowing detected could be renal sinus fat versus small calculi. No cyst or masses were identified. Left Kidney: The left kidney measures 13 X 6.6 X 5.2 cm. Newly developed mild hydronephrosis Multiple echogenic foci lagest measuring 4mm at lower pole. no posterior shadowing detected could be renal sinus fat versus small calculi. No cyst or masses were identified. Heterogeneous mildly echogenic parenchyma with suspected increases cortical thickness. Urinary bladder: Limited visualization. Bilateral ureteral jets are not seen in current study. IMPRESSION: 1. Bilateral mild hydronephrosis (new finding). 2. Bilateral heterogeneous mildly echogenic parenchyma with suspected increase cortical thickness (new finding). 3. Rim of right perinephric fluid (new finding). 4. Multiple bilateral renal echogenic foci. no posterior shadowing detected could be renal sinus fat versus small calculi. Electronically signed by Taniya Dumas 03-09-2024 07:09 AM Discharge Plan Visit Data Chief Complaint: Fever Stated Complaint: BACK PAIN, FEVER, CHILLS ED Provider: Carly Weir Discharge Problem: Fever, Back pain, , Pyelonephritis Patient Disposition: Admitted As Inpatient Discharge Instructions Interventions: ED Discharge Assessment Last Done: 03/09/24 06:58
[2024-03-09] MEDS: SODIUM CHLORIDE 0.9% 1,000 ML IV ONE ×2 (04:57→06:00)
[2024-03-09 05:13] LABS: Hematocrit (blood only) 35.7 % (37.0-47.0); Hemoglobin 12.4 g/dl (12.0-16.0); Mean Corpuscular Hemoglobin 29.2 pg (25.0-34.0); Mean Corpuscular Hgb Conc 34.7 g/dL (32.0-36.0); Mean Platelet Volume 8.9 fL (9.4-12.4); Platelet Count 359 K/uL (130-400); RDW Coefficient of Variation 12.4 % (11.5-14.5); RDW Standard Deviation 37.2 fL (36.4-46.3); Red Blood Count 4.25 M/uL (4.20-5.40); White Blood Count 26.68 K/ul (4.8-10.8)
[2024-03-09 05:30] LABS: Albumin Level 3.5 gm/dl (3.4-5.0); BUN Creatinine Ratio 6.6 (10-20); Basophils # (auto) 0.04 K/uL (0.00-0.20); Basophils % (auto) 0.1 %; Bilirubin,Total 1.6 mg/dl (0.2-1.0); Calcium 8.5 mg/dl (8.6-10.3); Creatinine Clr Calc Pharmacy 114.3 ml/min; Eosinophils # (auto) 0.09 K/uL (0.00-0.50); Eosinophils % (auto) 0.3 %; Globulin 3.5 gm/dl (2.5-4.0); Immature Granulocytes # (auto) 0.18 K/uL (0.01-0.20); Immature Granulocytes % (auto) 0.7 %; Lymphocytes % (auto) 3.7 %; Magnesium 1.3 mg/dl (1.7-2.4); Monocytes # (auto) 2.11 K/uL (0.11-0.59); Monocytes % (auto) 7.9 %; Neutrophils # (auto) 23.26 K/uL (1.40-6.50); Neutrophils % (auto) 87.3 %; Polychromasia 1+; Potassium 2.9 mmol/L (3.5-5.1)
[2024-03-09 05:56] LABS: Appearance Urine Cloudy (Clear); Bacteria Urine Automated 2+ (None Seen); Bilirubin Urine 1+ (Negative); Blood Urine 2+ (Negative); Color Urine Orange; Glucose Urine UA Negative (Negative); Ketones Urine 4+ (Negative); Leukocyte Esterase Urine 2+ (Negative); Nitrite Urine Negative (Negative); Protein Urine 2+ (Negative); RBC Urine Automated >20 /hpf (0-2); Urobilinogen Urine Negative (Negative); WBC Urine Automated >50 /hpf (0-5); pH Urine 5.5 (4.5-7.5)
[2024-03-09 05:57] LABS: Cast Urine Automated 0-2 /lpf (0-2)
[2024-03-09] MEDS: POTASSIUM CHLORIDE CRTAB 20 MEQ TABCR PO STA (06:00)
[2024-03-09] MEDS: MEROPENEM 500 MG in SYRINGE 0 ML IV SCH (06:27)
--- NOTE | 2024-03-09 07:10 | Ultrasound Report ---
EXAM: US renal/blad retro comp CLINICAL HISTORY: HX: PATIENT IS 35 WK . LOWER BACK PAIN. RIGHT FLANK PAIN. H/O PYELO. TECHNIQUE: A renal ultrasound was performed using grayscale imaging with doppler. COMPARISON: Comparison is made with prior imaging studies dated PREV 10/19/23 AND 09/17/23. FINDINGS: Right Kidney: The right kidney measures 11.8 X 6.4 X 5.8 cm. Newly developed mild hydronephrosis. Heterogeneous mildly echogenic parenchyma with suspected increases cortical thickness. Rim perinephric fluid . Multiple echogenic foci largest measuring 4mm, no posterior shadowing detected could be renal sinus fat versus small calculi. No cyst or masses were identified. Left Kidney: The left kidney measures 13 X 6.6 X 5.2 cm. Newly developed mild hydronephrosis Multiple echogenic foci lagest measuring 4mm at lower pole. no posterior shadowing detected could be renal sinus fat versus small calculi. No cyst or masses were identified. Heterogeneous mildly echogenic parenchyma with suspected increases cortical thickness. Urinary bladder: Limited visualization. Bilateral ureteral jets are not seen in current study. IMPRESSION: 1. Bilateral mild hydronephrosis (new finding). 2. Bilateral heterogeneous mildly echogenic parenchyma with suspected increase cortical thickness (new finding). 3. Rim of right perinephric fluid (new finding). 4. Multiple bilateral renal echogenic foci. no posterior shadowing detected could be renal sinus fat versus small calculi. Electronically signed by Taniya Dumas 03-09-2024 07:09 AM
[2024-03-09 07:48] LABS: Adenovirus PCR Not Detected (NotDetected); Bordetella parapertussis PCR Not Detected (NotDetected); Bordetella pertussis PCR Not Detected (NotDetected); Chlamydia pneumoniae PCR Not Detected (NotDetected); Coronavirus 229E PCR Not Detected (NotDetected); Coronavirus CoV-2 (COVID19)PCR Not Detected (NotDetected); Coronavirus HKU1 PCR Not Detected (NotDetected); Coronavirus NL63 PCR Not Detected (NotDetected); Coronavirus OC43PCR Not Detected (NotDetected); Human Metapneumovirus PCR Not Detected (NotDetected); Influenza A PCR Not Detected (NotDetected); Influenza B PCR Not Detected (NotDetected); Mycoplasma pneumoniae PCR Not Detected (NotDetected); Parainfluenza Virus 1 PCR Not Detected (NotDetected); Parainfluenza Virus 2 PCR Not Detected (NotDetected); Parainfluenza Virus 3 PCR Not Detected (NotDetected); Parainfluenza Virus 4 PCR Not Detected (NotDetected); Respiratory Syncytial VirusPCR Not Detected (NotDetected); Rhinovirus/Enterovirus PCR Not Detected (NotDetected)
[2024-03-09] MEDS: ONDANSETRON INJ 2 MG/ML 2 ML VIAL ONE (09:19)
[2024-03-09] MEDS: SODIUM CHLORIDE 0.9% 1,000 ML IV SCH (09:20)
[2024-03-09] MEDS ORDERED: ACETAMINOPHEN 500 MG TAB PO PRN (09:20)
--- NOTE | 2024-03-09 09:20 | History & Physical Report ---
Date of Service March 09, 2024 Assessment & Plan (1) Pyelonephritis complicating in third trimester: Plan: Admit to labor and delivery. Started meropenem antibiotics in the emergency department due to multidrug resistance, however after discussion with rod lagunas, she is recommending switch to ertapenem. This order has been changed. Will plan to give ertapenem 1 g daily. On initial arrival to labor and delivery, due to increased risk of labor with pyelonephritis in third trimester, recommended monitoring and tocometer. Will likely be okay to discontinue continuous monitoring if patient remains asymptomatic and moved to every shift NSTs if tracing continues to appear normal. Will give Zofran as needed, IV fluids, Tylenol for pain and fever symptoms. Admission and Anticipated Discharge Date Admission Date: March 09, 2024 History of Present Illness Primary Care Provider: MAGALY Ureña 23-year-old G1, P0 at 34 weeks 2 days presented to emergency department with complaint of fever and back pain. She has a history of pyelonephritis diagnosed during this , has been taking prophylactic Macrobid. She started to feel sick on Tuesday of this week, reports home temperatures of 102 F. Feels feverish and chills. Is drinking fluids, has minimal appetite. Feeling movement. No contractions. No leaking of water, no vaginal bleeding. also complicated by atypical finding on sex chromosomes on panorama testing, gestational diabetes diagnosed with 16-week Glucola. Her most recent urine culture results was 02/22/2024, showed multidrug-resistant Klebsiella pneumoniae UTI. Allergies Allergy/AdvReac Type Severity Reaction Status Date / Time Penicillins Allergy Mild RASH Verified 03/09/24 08:15 Home Medications Medication Instructions Recorded Confirmed Type aupickkr-hho-Om-FA 1 mg 1 tab PO DAILY 09/01/23 03/09/24 History tablet ondansetron 4 mg disintegrating 4 mg PO Q6H PRN nausea and 10/21/23 03/09/24 Rx tablet vomiting #20 tabs acetone (urine) test (Ketone Urine #50 ea 12/08/23 02/28/24 Rx Test strips) blood sugar diagnostic (OneTouch #150 ea 12/08/23 02/28/24 Rx Verio test strips) lancets 33 gauge (OneTouch Delica #150 ea 12/08/23 02/28/24 Rx Plus Lancet) blood-glucose meter (OneTouch #1 ea 01/02/24 02/28/24 Rx Verio Reflect Meter) nitrofurantoin 100 mg PO DAILY #30 caps 02/29/24 03/09/24 Rx monohydrate/macrocrystals 100 mg capsule (Macrobid) Patient History Medical History Lyme disease AT AGE 9. Repeat titers in Feb 2019 negative on western blot. Surgical History S/P ACL repair Family History Father Hypertension Myocardial infarction Family history of leukocytosis Diabetes Dyslipidemia Grandfather (Paternal) Aneurysm of abdominal aorta Denies family history of Ovarian cancer Prostate cancer Bipolar disorder Colorectal cancer Social History Smoking Status: Never smoker Second Hand Exposure: No; Do You Dip or Chew Tobacco: No; Hx Alcohol Use: No Hx Substance Use: No Preferred Language: Eritrean Communication Ability: Effective Visual Impairment: No Limitations Hearing Ability: Normal Rand Butter Required: No Beliefs That Will Affect Care: None marital status: Single marital status details: Douglas (22) [phone] Current Living Situation: Parent Current Living Situation Comment: lives with mom and dad, grandmother, 2 cats, gram changing litter current occupational status: employed current occupation: working at [employer] Other Information That Helps Us Care for You: No Feels Safe at Home: Yes Safety Concerns: Feels Safe At This Time Childhood Exposure to Second-Hand Smoke: No Diet: regular Diet Comment: regular caffeine: Yes during the past year weight has: remained stable Dental Care, Regularly: Yes Physical Activity Frequency: 5-6 Times per Week Seatbelt Use: always Sunscreen Use: Yes Assistive Devices: None Physical Exam Physical Exam: Constitutional: alert, in no acute distress, well nourished, well developed and healthy appearing. Skin: normal skin color and pigmentation Neck: the appearance of the neck was normal, no neck mass was observed Pulmonary: no respiratory distress, normal respiratory rhythm and effort Cardiovascular: heart rate and rhythm were normal Abdomen: soft, non-tender, gravid. FHT Cat 1. Posey none. Neurological: The patient was oriented to person, place, and time. Mood and affect were appropriate. Extremities: No edema, no calf tenderness. Results & Data Vital Signs (Past 12 Hours) Vital Signs Temp Pulse Pulse Resp BP BP Pulse Ox 03/09/24 07:50 36.5 C 20 03/09/24 07:43 109 H 105/66 03/09/24 06:58 106 H 18 103/75 100 03/09/24 06:20 109 H 18 122/82 97 03/09/24 04:49 122 H 03/09/24 04:30 36.7 C 142 H 18 112/76 97 O2 Del Method 03/09/24 07:50 03/09/24 07:43 03/09/24 06:58 Room Air 03/09/24 06:20 Room Air 03/09/24 04:49 03/09/24 04:30 Room Air Coding Level of Care Code 23503 INT INP/OBS CARE 2/55MIN Diagnoses Pyelonephritis complicating in third trimester O23.03
[2024-03-09] MEDS ORDERED: LACTATED RINGER'S 1,000 ML IV SCH (09:30)
[2024-03-09] MEDS: ACETAMINOPHEN 1,000 MG/100 ML VIAL IV STA ×2 (09:42→16:10)
--- NOTE | 2024-03-09 10:51 | Obstetrical Progress Note ---
Date of Service March 09, 2024 Assessment & Plan (1) Pyelonephritis complicating in third trimester: Plan pt to get iv ertapenum. will see how baby responds to maternal fever trt. d/w pharmacist and [facility] urology, when look at this pt history, she had original dx of pyelo at 14wks, ecoli, and treated with macrobid but not suppressed thereafter, then cx showed klebsiella esbl with alot of resistance to abx, given macrobid and then jaron showed that organism again but given macrobid again, and then on next JARON, still with that organism and given macrobid suppression. now here breaking through that med and with pyelo. given this story did [facility] and discussed penetration of abx with this organism likely not adequate and current med can trt. I am concerned about po agents to use as outpt pending improvement of pt on this current iv med. Perhaps augmentin for the 7-10day course and then ? suppressive med. I have also called pharmacy to ask their advice. I will discuss with wkend call team as well. May need ID consult or hospitalist consult. Hopefully pt responds to current iv med which i am told is likely, works well for pyelo and this organism. Admission and Anticipated Discharge Date Admission Date: March 09, 2024 Subjective pt was under covers, feels hivery when in to see her last, getting iv tylenol as does not feel can take po. Physical Exam Genitourinary: OB Exam Monitor Tracing: + external FHT monitor used ( tachycardia), + category I and + normal FHT variability Results & Data Vital Signs (Past 12 Hours) Vital Signs Temp Pulse Pulse Resp BP BP Pulse Ox 03/09/24 10:15 100.8 F H 03/09/24 09:45 99.7 F H 03/09/24 09:24 99.3 F 03/09/24 07:50 97.7 F 20 03/09/24 07:43 109 H 105/66 03/09/24 06:58 106 H 18 103/75 100 03/09/24 06:20 109 H 18 122/82 97 03/09/24 04:49 122 H 03/09/24 04:30 98.1 F 142 H 18 112/76 97 O2 Del Method 03/09/24 10:15 03/09/24 09:45 03/09/24 09:24 03/09/24 07:50 03/09/24 07:43 03/09/24 06:58 Room Air 03/09/24 06:20 Room Air 03/09/24 04:49 03/09/24 04:30 Room Air PG Care Time/CCT Total # of Minutes Spent Total Time Spent with Patient: Total time spent is greater than 50% in coordination of care (as documented) at patient's floor/unit and/or counseling patient: Coding Level of Care Code None Diagnoses Pyelonephritis complicating in third trimester O23.03
[2024-03-09] MEDS: MAGNESIUM SULFATE / D5W 1 GM/100 ML BAG IV SCH (11:40)
--- NOTE | 2024-03-09 11:47 | Hospitalist Consultation ---
Date of Consultation March 09, 2024 Assessment & Plan (1) Pyelonephritis complicating in third trimester: Sepsis due to ESBL Klebsiella pyelonephritis Patient is hypotensive, tachycardic, febrile Renal ultrasound: Mild hydro, bilateral heterogenous parenchymal thickening, small rim of perinephric fluid right-sided. Suspect pyelonephritis White count 26.68, PCT 36.9 Recommend treating patient to sepsis protocol. Lactate is normal 1 L fluids 4 AM, 1 L 6 AM, 1L ER. 3L total ABW 30 cc goal fluids 2367 cc Switch to Plasma-Lyte due to electrolyte abnormalities. Continue maintenance. Pt is with ongoing diarrhea and fever and increased losses.+ ~500cc-1L additional bolus. Received potassium chloride 40 mEq, potassium is 2.9. Will add additional IV 10 mEq K riders Magnesium 1.3, 2X 1 g IV infusions ordered Recommend treatment with ertapenem. Can switch from meropenem, pseudomonal coverage with this is not required at this time Do not recommend Augmentin given intermediate resistance to Unasyn although beta-lactamase and this is technically superior has a high risk of failure, and patient is baseline with concerns for penicillin allergy anyway. Levofloxacin is a potential option however this is class C for and additionally there is ciprofloxacin resistance so would prefer to avoid this given patient's sepsis and degree of clinical illness. Continue ertapenem 1 g daily. Will require approximate 7-10-day course of treatment. CBC/CMP daily Will repeat BMP plus mag this afternoon Does have some tachycardia related reactive with fever but is also volume depleted with both urosepsis and diarrhea. Continue fluid/boluses. No signs of pulmonary edema/hypoxia. If patient clinically improves and stabilizes and turns the corner with suspected gram-negative bacteremia/sepsis then can continue monitoring on [facility]. If she has worsening hypotension requiring vasopressors/signs of endorgan ischemia then will need transfer to the unit. Unfortunately continuous monitoring is not available at the unit and would require transfer to [facility] at that point although patient could be temporized in our ICU. Would use norepinephrine first-line, ephedrine second line for increase in uterine blood flow Diarrhea - Liquid diarrhea with multiple courses of abx including macrobid and recent rocephin tx for otitis - Also recently with norovirus, but this resolved before recurring after treatment with cefdinir Recently completed a course of antibiotics, will test for C. difficile 34-week , G1, P0 Patient admitted to [facility] service, management per primary team (2) Gestational diabetes: History of Present Illness Attending Physician: Susu Schmitt MD, FACOG History of Present Illness Rae is a 23-year-old female G1, P0 at 34 weeks who presented to the ER with fever and back pain. Has history of pyelonephritis at 14 weeks treated with and continued on prophylactic nitrofurantoin. She has had several urine cultures positive for ESBL Klebsiella which was sensitive to this however presents with concern for pyelo and progressive complicated UTI. She was admitted to [facility] with monitoring. This and has been consulted for additional management of pyelonephritis with concerns for sepsis and ESBL gram-negative infection. Faiza meropenem in the ER this has been transition to ertapenem based on sensitivities Patient reports she was also on a course of cefdinir for sinus infection/otitis approximately 2 weeks ago. She has had constant liquid diarrhea which developed after this. She endorses fever, chills, sweats and generally feeling very unwell in the last 3 to 4 days. She has had some mid abdominal and left greater than right flank tenderness over the last 3 days. She has a history of gestational diabetes otherwise denies other medical problems Is allergic to penicillin, rash allergy as a child No tobacco/alcohol use Allergies Allergy/AdvReac Type Severity Reaction Status Date / Time Penicillins Allergy Mild RASH Verified 03/09/24 08:15 Home Medications Medication Instructions Recorded Confirmed Type awghciha-vkj-Ku-FA 1 mg 1 tab PO DAILY 09/01/23 03/09/24 History tablet ondansetron 4 mg disintegrating 4 mg PO Q6H PRN nausea and 10/21/23 03/09/24 Rx tablet vomiting #20 tabs acetone (urine) test (Ketone Urine #50 ea 12/08/23 02/28/24 Rx Test strips) blood sugar diagnostic (OneTouch #150 ea 12/08/23 02/28/24 Rx Verio test strips) lancets 33 gauge (OneTouch Delica #150 ea 12/08/23 02/28/24 Rx Plus Lancet) blood-glucose meter (OneTouch #1 ea 01/02/24 02/28/24 Rx Verio Reflect Meter) nitrofurantoin 100 mg PO DAILY #30 caps 02/29/24 03/09/24 Rx monohydrate/macrocrystals 100 mg capsule (Macrobid) Patient History Medical History Lyme disease AT AGE 9. Repeat titers in Feb 2019 negative on western blot. Surgical History S/P ACL repair Family History Father Hypertension Myocardial infarction Family history of leukocytosis Diabetes Dyslipidemia Grandfather (Paternal) Aneurysm of abdominal aorta Denies family history of Ovarian cancer Prostate cancer Bipolar disorder Colorectal cancer Social History Smoking Status: Never smoker Second Hand Exposure: No; Do You Dip or Chew Tobacco: No; Hx Alcohol Use: No Hx Substance Use: No Preferred Language: Serbian Communication Ability: Effective Visual Impairment: No Limitations Hearing Ability: Normal Riveter Portable Machine Required: No Beliefs That Will Affect Care: None marital status: Single marital status details: Douglas (22) [phone] Current Living Situation: Parent Current Living Situation Comment: lives with mom and dad, grandmother, 2 cats, gram changing litter current occupational status: employed current occupation: working at [employer] Other Information That Helps Us Care for You: No Feels Safe at Home: Yes Safety Concerns: Feels Safe At This Time Childhood Exposure to Second-Hand Smoke: No Diet: regular Diet Comment: regular caffeine: Yes during the past year weight has: remained stable Dental Care, Regularly: Yes Physical Activity Frequency: 5-6 Times per Week Seatbelt Use: always Sunscreen Use: Yes Assistive Devices: None Physical Exam Physical Exam: General: A&Ox3. NAD. Appears fatigued, ill HEENT: Atraumatic, normocephalic.Vision and hearing grossly intact. Pupils equal and reactive to light and accommodation Pulm: CTAB A&P. -wheezes, -rales, -rhonchi. Symmetrical chest rise. No increased work of breathing. No respiratory distress. Cardiac: Tachycardic, regular, no murmur. Radial pulses intact and symmetrical. Abdominal: Mild tenderness to palpation suprapubic region, abdomen is distended consistent with , mild bilateral CVA tenderness to percussion. Extremities: Warm, dry Results & Data Results & Data Vital Signs (Past 12 Hours) Vital Signs Temp Pulse Pulse Resp BP BP Pulse Ox 03/09/24 11:38 95 03/09/24 11:38 119 H 03/09/24 11:33 96 03/09/24 11:33 121 H 03/09/24 11:23 96 03/09/24 11:23 125 H 03/09/24 11:18 96 03/09/24 11:18 124 H 03/09/24 11:13 96 03/09/24 11:13 126 H 03/09/24 10:49 20 03/09/24 10:49 38.0 C H 20 03/09/24 10:49 121 H 03/09/24 10:49 88/49 L 03/09/24 10:15 38.2 C H 03/09/24 09:45 37.6 C H 03/09/24 09:24 37.4 C 03/09/24 07:50 36.5 C 20 03/09/24 07:43 109 H 105/66 03/09/24 06:58 106 H 18 103/75 100 03/09/24 06:20 109 H 18 122/82 97 03/09/24 04:49 122 H 03/09/24 04:30 36.7 C 142 H 18 112/76 97 O2 Del Method 03/09/24 11:38 03/09/24 11:38 03/09/24 11:33 03/09/24 11:33 03/09/24 11:23 03/09/24 11:23 03/09/24 11:18 03/09/24 11:18 03/09/24 11:13 03/09/24 11:13 03/09/24 10:49 03/09/24 10:49 03/09/24 10:49 03/09/24 10:49 03/09/24 10:15 03/09/24 09:45 03/09/24 09:24 03/09/24 07:50 03/09/24 07:43 03/09/24 06:58 Room Air 03/09/24 06:20 Room Air 03/09/24 04:49 03/09/24 04:30 Room Air PG Care Time/CCT Total # of Minutes Spent Total Time Spent with Patient: Total time spent is greater than 50% in coordination of care (as documented) at patient's floor/unit and/or counseling patient: Coding Level of Care Code 96763 IN/OBS CONSULT LVL 5,80M Diagnoses Pyelonephritis complicating in third trimester O23.03 Gestational diabetes O24.419
[2024-03-09] MEDS: CALCIUM CARBONATE 500 MG CHEWABLE TAB PO PRN (12:03)
[2024-03-09] MEDS: ERTAPENEM 1000MG 1,000 MG/10 ML SYR IV SCH (12:33)
[2024-03-09] MEDS: LACTATED RINGER'S 1,000 ML IV SCH (12:45)
[2024-03-09] MEDS: POTASSIUM CHLORIDE / WTR 10 MEQ/100 ML PLCT IV SCH ×2 (12:47→16:12)
[2024-03-09 14:20] LABS: Cdiff Toxin B Gene (2yr or >) Positive Cdiff Gene (Neg)
--- NOTE | 2024-03-09 14:36 | Electrocardiogram Report ---
Test Reason : Blood Pressure : */* mmHG Vent. Rate : 109 BPM Atrial Rate : 109 BPM P-R Int : 124 ms QRS Dur : 88 ms QT Int : 356 ms P-R-T Axes : 43 52 -1 degrees QTcB Int : 479 ms Sinus tachycardia Nonspecific ST abnormality Abnormal ECG When compared with ECG of 19-Oct-2023 00:02, No significant change was found Confirmed by Jyaden Everett ([id number]) on 03/09/2024 2:35:29 PM Referred By: REFERRED SELF Confirmed By: Jayden Everett
[2024-03-09 14:54] LABS: Cdiff Antigen Positive
[2024-03-09 14:56] LABS: Cdiff Toxin A+B Positive Cdiff Toxin (Negative)
[2024-03-09] MEDS: ONDANSETRON INJ 2 MG/ML 2 ML VIAL IV PRN (14:58)
[2024-03-09 16:06] LABS: Hematocrit (blood only) 31.3 % (37.0-47.0); Hemoglobin 10.7 g/dl (12.0-16.0); Mean Corpuscular Hemoglobin 29.2 pg (25.0-34.0); Mean Corpuscular Hgb Conc 34.2 g/dL (32.0-36.0); Mean Corpuscular Volume 85.5 fL (80.0-100.0); Mean Platelet Volume 8.9 fL (9.4-12.4); Platelet Count 304 K/uL (130-400); RDW Coefficient of Variation 12.7 % (11.5-14.5); RDW Standard Deviation 39.5 fL (36.4-46.3); Red Blood Count 3.66 M/uL (4.20-5.40); White Blood Count 26.04 K/ul (4.8-10.8)
[2024-03-09] MEDS: ACETAMINOPHEN 325 MG TAB PO STA (16:23)
[2024-03-09 16:24] LABS: Basophils # (auto) 0.03 K/uL (0.00-0.20); Basophils % (auto) 0.1 %; Immature Granulocytes # (auto) 0.34 K/uL (0.01-0.20); Immature Granulocytes % (auto) 1.3 %; Lymphocytes # (auto) 1.12 K/uL (1.20-3.40); Lymphocytes % (auto) 4.3 %; Monocytes # (auto) 1.96 K/uL (0.11-0.59); Monocytes % (auto) 7.5 %; Neutrophils # (auto) 22.59 K/uL (1.40-6.50); Neutrophils % (auto) 86.8 %
[2024-03-09 16:27] LABS: Albumin Level 2.9 gm/dl (3.4-5.0); BUN Creatinine Ratio 6.8 (10-20); Bilirubin,Total 0.7 mg/dl (0.2-1.0); Creatinine Clr Calc Pharmacy 149.5 ml/min; Globulin 2.8 gm/dl (2.5-4.0); Potassium 3.6 mmol/L (3.5-5.1); Total Protein 5.7 gm/dl (6.0-8.3)
[2024-03-09] MEDS: CHERRY SYRUP 5 ML UDP PO SCH (16:48)
[2024-03-09] MEDS: VANCOMYCIN HCL 125 MG/2.5ML SOLN PO SCH (16:48)
[2024-03-09] MEDS: MAGNESIUM SULFATE / D5W 1 GM/100 ML BAG IV ONE (16:49)
--- NOTE | 2024-03-09 17:05 | Communication Note ---
Date of Service: March 09, 2024 have been in touch with patient about plan of care. need to recheck monitoring. made her aware that if needs bp support will need to go to icu and [facility] shipley to tertiary care center. she is made aware that her situation right now for that possible need is uncertain but that her sepsis picture is concerning. we will try another dose of iv tylenol now.
[2024-03-09 18:15] LABS: Magnesium 1.9 mg/dl (1.7-2.4)
[2024-03-09] MEDS: PROMETHAZINE 12.5 MG/50.5 ML BAG IV PRN (20:50)
[2024-03-09 22:29] LABS: A calco-baum cmplx NotReported Not Detected (NotDetected); Bact fragilis Not Reported Not Detected (NotDetected); Blood Culture Id Panel See PCR Comment (NotDetected); C auris Not Reported Not Detected (NotDetected); Calbicans Not Reported Not Detected (NotDetected); Candida glabrata Not Reported Not Detected (NotDetected); Candida krusei Not Reported Not Detected (NotDetected); Cneoformans/gatti Not Reported Not Detected (NotDetected); Cparapsilosis Not Reported Not Detected (NotDetected); E cloacae compx Not Reported Not Detected (NotDetected); Efaecalis Not Reported Not Detected (NotDetected); Efaecium Not Reported Not Detected (NotDetected); Enterobacterales DETECTED (NotDetected); Enterobacterales Not Reported DETECTED (NotDetected); Escherichia coli Not Reported Not Detected (NotDetected); H influenzae Not Reported Not Detected (NotDetected); IMP Resistant Gene Not Detected (NotDetected); K aerogenes Not Reported Not Detected (NotDetected); KPC Resistant Gene Not Detected (NotDetected); Koxytoca Not Reported Not Detected (NotDetected); Kpneumoniae grp Not Reported DETECTED (NotDetected); Lmonocyt Not Reported Not Detected (NotDetected); N meningitidis Not Reported Not Detected (NotDetected); NDM Resistant Gene Not Detected (NotDetected); OXA 48 Like Resistant Gene Not Detected (NotDetected); P aeruginosa Not Reported Not Detected (NotDetected); Proteus spp Not Reported Not Detected (NotDetected); Salmonella spp Not Reported Not Detected (NotDetected); Staph lugdunensis Not Reported Not Detected (NotDetected); Staph spp. Not Reported Not Detected (NotDetected); Staphaureus Not Reported Not Detected (NotDetected); Staphepi Not Reported Not Detected (NotDetected); Stenmaltophilia Not Reported Not Detected (NotDetected); Strep agal(GrpB) Not Reported Not Detected (NotDetected); Strep pneum Not Reported Not Detected (NotDetected); Strep pyog (GrpA) Not Reported Not Detected (NotDetected); Strep spp Not Reported Not Detected (NotDetected); VIM Resistant Gene Not Detected (NotDetected); mcr-1 Colistin Resistant Gene Not Detected (NotDetected)
[2024-03-09 22:39] LABS: CTX-M Resistant Gene DETECTED (NotDetected); Klebsiella pneumoniae group DETECTED (NotDetected)
[2024-03-10 00:29] LABS: BUN Creatinine Ratio 8.5 (10-20); Calcium 8.5 mg/dl (8.6-10.3); Creatinine Clr Calc Pharmacy 149.5 ml/min; Magnesium 1.8 mg/dl (1.7-2.4); Potassium 3.8 mmol/L (3.5-5.1)
[2024-03-10] MEDS: ACETAMINOPHEN 1,000 MG/100 ML VIAL IV STA (01:16)
[2024-03-10] MEDS: LACTATED RINGER'S 1,000 ML IV SCH ×3 (02:15→21:46)
[2024-03-10 06:39] LABS: Hematocrit (blood only) 30.9 % (37.0-47.0); Hemoglobin 10.5 g/dl (12.0-16.0); Mean Corpuscular Hemoglobin 29.4 pg (25.0-34.0); Mean Corpuscular Volume 86.6 fL (80.0-100.0); Mean Platelet Volume 8.8 fL (9.4-12.4); Platelet Count 284 K/uL (130-400); RDW Coefficient of Variation 12.9 % (11.5-14.5); RDW Standard Deviation 40.3 fL (36.4-46.3); Red Blood Count 3.57 M/uL (4.20-5.40); White Blood Count 25.61 K/ul (4.8-10.8)
[2024-03-10 06:52] LABS: Albumin Level 2.8 gm/dl (3.4-5.0); BUN Creatinine Ratio 8.9 (10-20); Bilirubin,Total 0.5 mg/dl (0.2-1.0); Creatinine Clr Calc Pharmacy 157.5 ml/min; Globulin 2.7 gm/dl (2.5-4.0); Magnesium 1.7 mg/dl (1.7-2.4); Potassium 3.5 mmol/L (3.5-5.1); Total Protein 5.5 gm/dl (6.0-8.3)
[2024-03-10 07:08] LABS: Basophils # (auto) 0.06 K/uL (0.00-0.20); Basophils % (auto) 0.2 %; Dohle Bodies 1+; Echinocytes 1+; Eosinophils # (auto) 0.03 K/uL (0.00-0.50); Eosinophils % (auto) 0.1 %; Immature Granulocytes # (auto) 0.65 K/uL (0.01-0.20); Immature Granulocytes % (auto) 2.5 %; Lymphocytes # (auto) 1.56 K/uL (1.20-3.40); Lymphocytes % (auto) 6.1 %; Monocytes # (auto) 2.11 K/uL (0.11-0.59); Monocytes % (auto) 8.2 %; Neutrophils % (auto) 82.9 %
--- NOTE | 2024-03-10 07:39 | Obstetrical Progress Note ---
Date of Service March 10, 2024 Assessment & Plan (1) Pyelonephritis complicating in third trimester: Plan: currently on q24hr dosing of ertapenum and seemingly when queried does feel that her flank/back pain is improved. wbc still elevated and still with abnl temp curve. plan is to cont current iv abx and ultimately if responds, plan iv home abx trt, plan of such managed by hospitalist medicine--appreciate their help. (2) C. difficile diarrhea: Plan: continues to have abdominal cramping and diarrhea, getting trt per medicine team. hopefully starts to improve as i am concerned about her po intake from standpoint of hydration status given reluctance to try to take po fluids. hopefully if her cramps and bm freq improve she will feel more willing for po diet/fluids. (3) 34 weeks gestation of : Plan: have primarily kept her on LD for more intense nursing care and intermittent monitoring during time where bps ? stable. (occas irritability seen, fetus reactive). However seemingly that has improved, ie. bp more stable. Would await medicine input but could be possible to move her out of LD acuity later today with plan for qshift nsts or prn, given over many evaluations now in past 24hr, status reassuring. will discuss with oncoming md. Admission and Anticipated Discharge Date Admission Date: March 09, 2024 Subjective pt resting in bed. notes still with the abdominal cramping on lower abdomen and to left side. no longer with back/flank pain. does not feel that she is febrile. she does not want to take po due to makes her have diarrhea. she has some nausea but has been able to keep down her oral vanco liquid. denies rom, vb. +FM. no ctx. no cp or sob. has been up to void multiple times. pt has been having fetus monitored q4hr or prn. did have temp overnight but she did not feel severe chills as before, temp was taken due to RN noticing pulse rising. Review of Systems Constitutional: as per Subjective / HPI Physical Exam Constitutional: WD/WN, vitals as above (tmax 102.4 at 0050 today, tcurrent 97.9) Respiratory: normal respiratory effort, lungs clear to auscultation Cardiovascular: Rate/Rhythm: regular rate and regular rhythm Gastrointestinal (Abdomen): Percussion/Palpation: + abdomen tender (mildly tender, more left lower quad) and abdomen soft (gravid. ); no guarding (no rebound) Neurologic: grossly normal Psychiatric: A+Ox3, euthymic affect Genitourinary: no CVA tenderness due to go back on monitor. Results & Data Vital Signs (Past 12 Hours) Vital Signs Temp Pulse Resp BP Pulse Ox O2 Del Method 03/10/24 07:22 102 H 99 03/10/24 07:17 102 H 97 03/10/24 07:12 99 H 99 03/10/24 07:07 92 H 100 03/10/24 07:06 99 H 110/55 L 03/10/24 07:02 95 H 98 03/10/24 06:57 94 H 97 03/10/24 06:52 92 H 97 03/10/24 06:47 95 H 97 03/10/24 06:42 91 H 98 03/10/24 06:37 91 H 98 03/10/24 06:36 92 H 100/56 L 03/10/24 06:32 93 H 99 03/10/24 06:27 87 100 03/10/24 06:22 87 99 03/10/24 06:19 93 H 94 03/10/24 06:17 91 H 99 03/10/24 06:12 92 H 99 03/10/24 06:07 87 99 03/10/24 06:05 16 03/10/24 06:05 97.9 F 16 03/10/24 06:03 93 H 109/59 L 03/10/24 06:02 89 97 03/10/24 05:57 80 97 03/10/24 05:52 87 99 03/10/24 05:47 94 H 95 03/10/24 05:20 94 H 95 03/10/24 05:15 94 H 96 03/10/24 05:10 95 H 96 03/10/24 05:06 90 109/60 03/10/24 05:05 95 H 96 03/10/24 05:00 95 H 96 03/10/24 04:55 95 H 96 03/10/24 04:50 95 H 96 03/10/24 04:45 95 H 96 03/10/24 04:40 101 H 96 03/10/24 04:36 98 H 111/65 03/10/24 04:35 99 H 95 03/10/24 04:30 98 H 96 03/10/24 04:25 98 H 96 03/10/24 04:20 95 03/10/24 04:20 102 H 03/10/24 04:20 95 H 93 03/10/24 04:15 98 H 96 03/10/24 04:10 99 H 96 03/10/24 04:06 100 H 104/57 L 03/10/24 04:05 100 H 95 03/10/24 04:00 100 H 96 03/10/24 03:55 105 H 96 03/10/24 03:50 98 H 96 03/10/24 03:45 101 H 95 03/10/24 03:40 97 H 95 03/10/24 03:36 99 H 103/57 L 03/10/24 03:35 102 H 95 03/10/24 03:30 100 H 95 03/10/24 03:25 102 H 95 03/10/24 03:20 102 H 95 03/10/24 03:15 105 H 95 03/10/24 03:10 103 H 95 03/10/24 03:06 100 H 103/53 L 03/10/24 03:05 103 H 95 03/10/24 03:00 106 H 95 03/10/24 02:55 105 H 95 03/10/24 02:50 105 H 95 03/10/24 02:45 105 H 96 03/10/24 02:40 110 H 96 03/10/24 02:39 111 H 102/57 L 03/10/24 02:19 112 H 95 03/10/24 02:14 114 H 96 03/10/24 02:10 18 03/10/24 02:10 99.0 F 18 03/10/24 02:09 116 H 95 03/10/24 02:06 113 H 91/48 L 03/10/24 02:04 116 H 95 03/10/24 01:53 126 H 96 03/10/24 01:48 127 H 95 03/10/24 01:43 128 H 95 03/10/24 01:38 134 H 95 03/10/24 01:33 132 H 95 03/10/24 01:28 97 03/10/24 01:28 126 H 03/10/24 01:28 126 H 93/44 L 03/10/24 01:23 123 H 98 03/10/24 01:18 119 H 98 03/10/24 01:13 121 H 99 03/10/24 01:08 125 H 98 03/10/24 01:03 128 H 99 03/10/24 00:53 136 H 92/50 L 03/10/24 00:50 16 03/10/24 00:50 102.4 F H 16 03/10/24 00:49 140 H 98 03/10/24 00:44 137 H 98 03/10/24 00:39 134 H 99 03/10/24 00:34 134 H 98 03/10/24 00:29 130 H 98 03/10/24 00:24 128 H 99 03/10/24 00:19 127 H 100 03/10/24 00:14 131 H 99 03/10/24 00:11 125 H 95/51 L 03/10/24 00:09 122 H 100 03/10/24 00:04 122 H 100 03/09/24 23:59 100 03/09/24 23:59 123 H 03/09/24 23:54 100 03/09/24 23:54 125 H 03/09/24 23:49 100 03/09/24 23:49 125 H 03/09/24 23:44 100 03/09/24 23:44 119 H 03/09/24 23:39 98 03/09/24 23:39 125 H 03/09/24 23:34 99 03/09/24 23:34 116 H 03/09/24 23:29 99 03/09/24 23:29 121 H 03/09/24 23:24 100 03/09/24 23:24 115 H 03/09/24 23:21 92 03/09/24 23:21 115 H 03/09/24 23:19 99 03/09/24 23:19 113 H 03/09/24 23:15 16 03/09/24 23:15 99.0 F 16 03/09/24 23:14 98 03/09/24 23:14 114 H 03/09/24 23:14 113 H 03/09/24 23:14 113/55 L 03/09/24 23:09 98 03/09/24 23:09 109 H 03/09/24 23:04 99 03/09/24 23:04 111 H 03/09/24 22:59 99 03/09/24 22:59 108 H 03/09/24 22:54 99 03/09/24 22:54 110 H 03/09/24 22:49 99 03/09/24 22:49 107 H 03/09/24 22:44 98 03/09/24 22:44 107 H 03/09/24 22:39 98 03/09/24 22:39 104 H 03/09/24 22:34 97 03/09/24 22:34 103 H 03/09/24 22:29 98 03/09/24 22:29 104 H 03/09/24 22:24 99 03/09/24 22:24 103 H 03/09/24 22:19 98 03/09/24 22:19 103 H 03/09/24 22:14 16 03/09/24 22:14 98.2 F 16 03/09/24 22:14 99 03/09/24 22:14 115 H 03/09/24 22:07 99 03/09/24 22:07 111 H 03/09/24 22:07 105/59 L 03/09/24 22:03 113 H 03/09/24 22:03 105/58 L 03/09/24 22:02 100 03/09/24 22:02 111 H 03/09/24 21:57 100 03/09/24 21:57 111 H 03/09/24 21:52 96 03/09/24 21:52 115 H 03/09/24 21:47 96 03/09/24 21:47 114 H 03/09/24 21:42 97 03/09/24 21:42 114 H 03/09/24 21:37 97 03/09/24 21:37 112 H 03/09/24 21:33 111 H 03/09/24 21:33 95/52 L 03/09/24 21:32 97 03/09/24 21:32 111 H 03/09/24 21:27 96 03/09/24 21:27 111 H 03/09/24 21:22 96 03/09/24 21:22 110 H 03/09/24 21:17 96 03/09/24 21:17 113 H 03/09/24 21:12 96 03/09/24 21:12 109 H 03/09/24 21:07 98 03/09/24 21:07 107 H 03/09/24 21:03 105 H 03/09/24 21:03 106/61 03/09/24 21:02 96 03/09/24 21:02 108 H 03/09/24 20:57 96 03/09/24 20:57 103 H 03/09/24 20:52 96 03/09/24 20:52 106 H 03/09/24 20:47 96 03/09/24 20:47 107 H 03/09/24 20:42 96 03/09/24 20:42 106 H 03/09/24 20:37 96 03/09/24 20:37 110 H 03/09/24 20:33 105 H 03/09/24 20:33 112/60 03/09/24 20:32 96 03/09/24 20:32 104 H 03/09/24 20:27 96 03/09/24 20:27 108 H 03/09/24 20:22 95 03/09/24 20:22 111 H 03/09/24 20:20 Room Air 03/09/24 20:20 16 03/09/24 20:20 97.5 F L 16 03/09/24 20:17 95 03/09/24 20:17 111 H 03/09/24 20:04 96 03/09/24 20:04 118 H 03/09/24 20:04 94/53 L 03/09/24 19:59 95 03/09/24 19:59 113 H 03/09/24 19:54 96 03/09/24 19:54 111 H 03/09/24 19:49 96 03/09/24 19:49 113 H 03/09/24 19:44 96 03/09/24 19:44 111 H 03/09/24 19:39 96 03/09/24 19:39 111 H 03/09/24 19:34 96 03/09/24 19:34 111 H 03/09/24 19:33 110 H 03/09/24 19:33 104/55 L 03/09/24 19:29 96 03/09/24 19:29 111 H PG Care Time/CCT Total # of Minutes Spent Total Time Spent with Patient: Total time spent is greater than 50% in coordination of care (as documented) at patient's floor/unit and/or counseling patient: Coding Level of Care Code 86187 SUB INP/OBS CARE MIN Diagnoses Pyelonephritis complicating in third trimester O23.03 C. difficile diarrhea A04.72 34 weeks gestation of Z3A.34 CPT Codes Misx Procedure Codes - 09059 NST: 83730 NST ([id number]) HEALTH CARE RECRUITER Miscellaneous Codes Misx Procedure Codes 37176 NST
--- NOTE | 2024-03-10 08:15 | Hospitalist Progress Note ---
Date of Service March 10, 2024 Assessment & Plan (1) Pyelonephritis complicating in third trimester: Plan: Sepsis due to ESBL Klebsiella pyelonephritis On initial assessment met sepsis criteria suspected 2/2 combined complicated UTI with ESBL Klebsiella and C. diff Renal ultrasound: Mild hydro, bilateral heterogenous parenchymal thickening, small rim of perinephric fluid right-sided. Suspect pyelonephritis White count 26.68, PCT 36.9 Recommend treatment of complicated UTI with ertapenem. Switched from meropenem, pseudomonal coverage with this is not required at this time Reviewed Sensitivities. Do not recommend Augmentin given intermediate resistance to Unasyn although beta-lactamase and this is technically superior has a high risk of failure, and patient is baseline with concerns for penicillin allergy anyway. Levofloxacin is a potential option however this is class C for and additionally there is ciprofloxacin resistance so would prefer to avoid this given patient's sepsis and degree of clinical illness. Continue ertapenem 1 g daily. Will require 7-10day course of treatment. CBC/CMP daily Patient is markedly improved, received 1 fluid bolus overnight and is normotensive with downtrending tachycardia vastly improved on 03/10 Continue IVFM, rebolus as clinically indicated with either lactate or Plasma- Lyte as needed. Potassium is lower range of normal morning of 03/10, additional 2K riders are ordered with expected ongoing losses with diarrhea. Magnesium lower range of normal, again will give 1 g IV until p.o. intake stabilizes and diarrhea improves. Blood culture 03/09 positive for gram-negative bacilli, consistent with suspected ESBL Klebsiella bacteremia Repeat blood cultures ordered prior to placement of ultrasound-guided IV. Blood cultures not are not typically needed/indicated for uncomplicated gram- negative bacteremia, however recommend this in her situation given ESBL organism, prolonged illness with multiple positive urine cultures since 01/09, and current . Recommend following these is negative for at least 24 hours and then placing ultrasound-guided IV through which placed patient could complete daily infusions as outpatient if otherwise medically stable for discharge at that time. C. difficile diarrhea With recent Macrobid and cefdinir use Treatment is complicated by need for ongoing IV ertapenem for ESBL Klebsiella Recommend treating with vancomycin 4 times daily at this time for severe C. difficile. Dificid reasonable alternative however both are category B, and given concurrent need for ertapenem can easily extend oral vancomycin with a taper down to daily dosing to extend at minimum 7 days past the completion of her ertapenem regimen. Contact precautions, strict handwashing. Patient clinically is improved however diarrhea is not yet improving. Will give a few days for this however now that she is 24 is into initial treatment will add Questran for symptomatic relief Care continuity Patient is markedly improved on reassessment 03/10. tracing is category 1 reassuring and she is doing well from the standpoint. She has multiple complicated medical issues including C. difficile colitis and ESBL complicated UTI which require ongoing medical management and eventual peripheral IV placement. Discussed with RADAR SCIENTIST, reasonable to transfer patient to medical service however we will continue to perform regular monitoring. ? 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 difficile. H owever do have concern for multiple concurrent infections in a young healthy female (otitis/URI, ESBL complicated by low, and C. difficile) at the same time. May have some immunocompromise from . No other history of immune compromise. If she has delayed recovery, or continue recurrent infections resolved follow-up with immunoglobulin/immune compromise testing. She was tested for HIV with her this was negative. 34-week , G1, P0 Per RADAR SCIENTIST recommendation/management (2) Gestational diabetes: Admission and Anticipated Discharge Date Admission Date: March 09, 2024 Subjective Seen at the bedside on morning assessment and reassessment. Overall feels improved compared to yesterday, but still ill. Continues to have liquid diarrhea and some abdominal cramps. Is now making urine. No shortness of breath, difficulty breathing. Discussed with nursing staff. Received 1 additional fluid bolus overnight, otherwise no adverse events. Electrolytes open repleted is noted. tracing category 1. Physical Exam Physical Exam: General: A&Ox3. Peers ill but nontoxic. Clinical appearance improved from 03/09 HEENT: Atraumatic, normocephalic. Vision and hearing grossly intact Pulm: CTAB A&P. -wheezes, -rales, -rhonchi. Symmetrical chest rise. No increased work of breathing. No respiratory distress. Cardiac: Tachycardic. Radial pulses intact and symmetrical. Abdominal: Stented consistent with . Some suprapubic tenderness/cramping, less prominent than prior. Results & Data Results & Data Vital Signs (Past 12 Hours) Vital Signs Temp Pulse Resp BP Pulse Ox O2 Del Method 03/10/24 08:11 99 H 98 03/10/24 08:06 101 H 98 03/10/24 08:01 94 H 99 03/10/24 07:56 94 H 99 03/10/24 07:51 100 H 99 03/10/24 07:46 97 H 98 03/10/24 07:41 98 H 98 03/10/24 07:38 98 H 127/76 03/10/24 07:30 36.7 C 20 03/10/24 07:30 Room Air 03/10/24 07:22 102 H 99 03/10/24 07:17 102 H 97 03/10/24 07:12 99 H 99 03/10/24 07:07 92 H 100 03/10/24 07:06 99 H 110/55 L 03/10/24 07:02 95 H 98 03/10/24 06:57 94 H 97 03/10/24 06:52 92 H 97 03/10/24 06:47 95 H 97 03/10/24 06:42 91 H 98 03/10/24 06:37 91 H 98 03/10/24 06:36 92 H 100/56 L 03/10/24 06:32 93 H 99 03/10/24 06:27 87 100 03/10/24 06:22 87 99 03/10/24 06:19 93 H 94 03/10/24 06:17 91 H 99 03/10/24 06:12 92 H 99 03/10/24 06:07 87 99 03/10/24 06:05 16 03/10/24 06:05 36.6 C 16 03/10/24 06:03 93 H 109/59 L 03/10/24 06:02 89 97 03/10/24 05:57 80 97 03/10/24 05:52 87 99 03/10/24 05:47 94 H 95 03/10/24 05:20 94 H 95 03/10/24 05:15 94 H 96 03/10/24 05:10 95 H 96 03/10/24 05:06 90 109/60 03/10/24 05:05 95 H 96 03/10/24 05:00 95 H 96 03/10/24 04:55 95 H 96 03/10/24 04:50 95 H 96 03/10/24 04:45 95 H 96 03/10/24 04:40 101 H 96 03/10/24 04:36 98 H 111/65 03/10/24 04:35 99 H 95 03/10/24 04:30 98 H 96 03/10/24 04:25 98 H 96 03/10/24 04:20 95 03/10/24 04:20 102 H 03/10/24 04:20 95 H 93 03/10/24 04:15 98 H 96 03/10/24 04:10 99 H 96 03/10/24 04:06 100 H 104/57 L 03/10/24 04:05 100 H 95 03/10/24 04:00 100 H 96 03/10/24 03:55 105 H 96 03/10/24 03:50 98 H 96 03/10/24 03:45 101 H 95 03/10/24 03:40 97 H 95 03/10/24 03:36 99 H 103/57 L 03/10/24 03:35 102 H 95 03/10/24 03:30 100 H 95 03/10/24 03:25 102 H 95 03/10/24 03:20 102 H 95 03/10/24 03:15 105 H 95 03/10/24 03:10 103 H 95 03/10/24 03:06 100 H 103/53 L 03/10/24 03:05 103 H 95 03/10/24 03:00 106 H 95 03/10/24 02:55 105 H 95 03/10/24 02:50 105 H 95 03/10/24 02:45 105 H 96 03/10/24 02:40 110 H 96 03/10/24 02:39 111 H 102/57 L 03/10/24 02:19 112 H 95 03/10/24 02:14 114 H 96 03/10/24 02:10 18 03/10/24 02:10 37.2 C 18 03/10/24 02:09 116 H 95 03/10/24 02:06 113 H 91/48 L 03/10/24 02:04 116 H 95 03/10/24 01:53 126 H 96 03/10/24 01:48 127 H 95 03/10/24 01:43 128 H 95 03/10/24 01:38 134 H 95 03/10/24 01:33 132 H 95 03/10/24 01:28 97 03/10/24 01:28 126 H 03/10/24 01:28 126 H 93/44 L 03/10/24 01:23 123 H 98 03/10/24 01:18 119 H 98 03/10/24 01:13 121 H 99 03/10/24 01:08 125 H 98 03/10/24 01:03 128 H 99 03/10/24 00:53 136 H 92/50 L 03/10/24 00:50 16 03/10/24 00:50 39.1 C H 16 03/10/24 00:49 140 H 98 03/10/24 00:44 137 H 98 03/10/24 00:39 134 H 99 03/10/24 00:34 134 H 98 03/10/24 00:29 130 H 98 03/10/24 00:24 128 H 99 03/10/24 00:19 127 H 100 03/10/24 00:14 131 H 99 03/10/24 00:11 125 H 95/51 L 03/10/24 00:09 122 H 100 03/10/24 00:04 122 H 100 03/09/24 23:59 100 03/09/24 23:59 123 H 03/09/24 23:54 100 03/09/24 23:54 125 H 03/09/24 23:49 100 03/09/24 23:49 125 H 03/09/24 23:44 100 03/09/24 23:44 119 H 03/09/24 23:39 98 03/09/24 23:39 125 H 03/09/24 23:34 99 03/09/24 23:34 116 H 03/09/24 23:29 99 03/09/24 23:29 121 H 03/09/24 23:24 100 03/09/24 23:24 115 H 03/09/24 23:21 92 03/09/24 23:21 115 H 03/09/24 23:19 99 03/09/24 23:19 113 H 03/09/24 23:15 16 03/09/24 23:15 37.2 C 16 03/09/24 23:14 98 03/09/24 23:14 114 H 03/09/24 23:14 113 H 03/09/24 23:14 113/55 L 03/09/24 23:09 98 03/09/24 23:09 109 H 03/09/24 23:04 99 03/09/24 23:04 111 H 03/09/24 22:59 99 03/09/24 22:59 108 H 03/09/24 22:54 99 03/09/24 22:54 110 H 03/09/24 22:49 99 03/09/24 22:49 107 H 03/09/24 22:44 98 03/09/24 22:44 107 H 03/09/24 22:39 98 03/09/24 22:39 104 H 03/09/24 22:34 97 03/09/24 22:34 103 H 03/09/24 22:29 98 03/09/24 22:29 104 H 03/09/24 22:24 99 03/09/24 22:24 103 H 03/09/24 22:19 98 03/09/24 22:19 103 H 03/09/24 22:14 16 03/09/24 22:14 36.8 C 16 03/09/24 22:14 99 03/09/24 22:14 115 H 03/09/24 22:07 99 03/09/24 22:07 111 H 03/09/24 22:07 105/59 L 03/09/24 22:03 113 H 03/09/24 22:03 105/58 L 03/09/24 22:02 100 03/09/24 22:02 111 H 03/09/24 21:57 100 03/09/24 21:57 111 H 03/09/24 21:52 96 03/09/24 21:52 115 H 03/09/24 21:47 96 03/09/24 21:47 114 H 03/09/24 21:42 97 03/09/24 21:42 114 H 03/09/24 21:37 97 03/09/24 21:37 112 H 03/09/24 21:33 111 H 03/09/24 21:33 95/52 L 03/09/24 21:32 97 03/09/24 21:32 111 H 03/09/24 21:27 96 03/09/24 21:27 111 H 03/09/24 21:22 96 03/09/24 21:22 110 H 03/09/24 21:17 96 03/09/24 21:17 113 H 03/09/24 21:12 96 03/09/24 21:12 109 H 03/09/24 21:07 98 03/09/24 21:07 107 H 03/09/24 21:03 105 H 03/09/24 21:03 106/61 03/09/24 21:02 96 03/09/24 21:02 108 H 03/09/24 20:57 96 03/09/24 20:57 103 H 03/09/24 20:52 96 03/09/24 20:52 106 H 03/09/24 20:47 96 03/09/24 20:47 107 H 03/09/24 20:42 96 03/09/24 20:42 106 H 03/09/24 20:37 96 03/09/24 20:37 110 H 03/09/24 20:33 105 H 03/09/24 20:33 112/60 03/09/24 20:32 96 03/09/24 20:32 104 H 03/09/24 20:27 96 03/09/24 20:27 108 H 03/09/24 20:22 95 03/09/24 20:22 111 H 03/09/24 20:20 Room Air 03/09/24 20:20 16 03/09/24 20:20 36.4 C L 16 03/09/24 20:17 95 03/09/24 20:17 111 H PG Care Time/CCT Total # of Minutes Spent Total Time Spent with Patient: Total time spent is greater than 50% in coordination of care (as documented) at patient's floor/unit and/or counseling patient: Coding Level of Care Code 09387 SUB INP/OBS CARE 3/50MIN Diagnoses Pyelonephritis complicating in third trimester O23.03 Gestational diabetes O24.419
[2024-03-10] MEDS: ACETAMINOPHEN 1,000 MG/100 ML VIAL IV PRN (09:52)
[2024-03-10] MEDS: POTASSIUM CHLORIDE / WTR 10 MEQ/100 ML PLCT IV SCH (09:56)
[2024-03-10] MEDS: MAGNESIUM SULFATE / D5W 1 GM/100 ML BAG IV ONE (12:27)
[2024-03-10] MEDS: FIDAXOMICIN 200 MG TAB PO SCH (15:48)
[2024-03-10] MEDS: LACTATED RINGER'S 500 ML IV ONE (19:22)
[2024-03-10] MEDS: MEROPENEM 1,000 MG in SYRINGE 0 ML IV SCH (20:23)
[2024-03-10] MEDS: SODIUM CHLORIDE 0.9% 1,000 ML IV ONE (20:23)
[2024-03-10] MEDS: SODIUM CHLORIDE 0.9% 500 ML IV SCH (20:23)
[2024-03-10] MEDS ORDERED: CHOLESTYRAMINE LIGHT 4 GM PKT PO SCH (22:00)
[2024-03-10] MEDS: FAMOTIDINE 20 MG TAB PO STA (22:05)
[2024-03-11 06:59] LABS: Base Excess VBG -9.2 mEq/L; HCO3 VBG 15 mmol/L; Oxygen Saturation VBG 79.3 %; PCO2 VBG 28 mmHg (38-50); PO2 VBG 44 mmHg; pH VBG 7.34 (7.36-7.41)
[2024-03-11 07:05] LABS: Basophils # (auto) 0.05 K/uL (0.00-0.20); Basophils % (auto) 0.2 %; Eosinophils # (auto) 0.09 K/uL (0.00-0.50); Eosinophils % (auto) 0.4 %; Hematocrit (blood only) 32.6 % (37.0-47.0); Hemoglobin 10.9 g/dl (12.0-16.0); Immature Granulocytes # (auto) 0.39 K/uL (0.01-0.20); Immature Granulocytes % (auto) 1.8 %; Lymphocytes # (auto) 1.81 K/uL (1.20-3.40); Lymphocytes % (auto) 8.3 %; Mean Corpuscular Hemoglobin 28.8 pg (25.0-34.0); Mean Corpuscular Hgb Conc 33.4 g/dL (32.0-36.0); Mean Platelet Volume 8.9 fL (9.4-12.4); Monocytes # (auto) 1.07 K/uL (0.11-0.59); Monocytes % (auto) 4.9 %; Neutrophils # (auto) 18.36 K/uL (1.40-6.50); Neutrophils % (auto) 84.4 %; Platelet Count 374 K/uL (130-400); RDW Coefficient of Variation 12.7 % (11.5-14.5); RDW Standard Deviation 39.8 fL (36.4-46.3); Red Blood Count 3.79 M/uL (4.20-5.40); White Blood Count 21.77 K/ul (4.8-10.8)
[2024-03-11 07:19] LABS: BUN Creatinine Ratio 11.8 (10-20); C Reactive Protein 24.28 mg/dl (0-0.5); Calcium 8.7 mg/dl (8.6-10.3); Creatinine Clr Calc Pharmacy 172.9 ml/min; Magnesium 1.4 mg/dl (1.7-2.4); Potassium 3.2 mmol/L (3.5-5.1)
[2024-03-11] MEDS: PLASMA-LYTE A 500 ML IV ONE (07:25)
[2024-03-11] MEDS: PLASMA-LYTE A 1,000 ML IV SCH (08:06)
[2024-03-11] MEDS: FAMOTIDINE 20MG IV PUSH 20 MG/5 ML SYR IV SCH (08:44)
[2024-03-11] MEDS: POTASSIUM CHLORIDE / WTR 10 MEQ/100 ML PLCT IV SCH (08:45)
[2024-03-11] MEDS: MAGNESIUM SULFATE / D5W 1 GM/100 ML BAG IV SCH (08:45)
[2024-03-11] MEDS: ACETAMINOPHEN 1,000 MG/100 ML VIAL IV PRN (08:54)
[2024-03-11 09:06] VITALS: RESP 18; TEMP 98.1
--- NOTE | 2024-03-11 09:48 | XRay Report ---
EXAM: Radiograph of the Abdomen 1 View INDICATION: Evaluate for free air. TECHNIQUE: Frontal supine view of the abdomen. COMPARISON: No relevant prior studies available. FINDINGS: Limitations: None. Intraperitoneal space: No large free air collection is identified on this image which is previous obtained position. Gastrointestinal tract: Air scattered throughout non-dilated intestinal loops. Organs: Visualized organ shadows appear grossly normal. Bones/joints: No fracture, erosion or dislocation. Soft tissues: No abnormality noted. No radiopaque foreign body noted. IMPRESSION: No large free air collection is identified on this image which is previous obtained position. Small free air collections may not be visualized. ACT 112: Negative or not required by law. Electronically signed by Salima Lyons 03-11-2024 09:47 AM
--- NOTE | 2024-03-11 09:56 | Discharge Summary ---
Discharge Summary Date of Service March 11, 2024 Principal Dx & Hospital Course #1 = Principal Diagnosis (1) Pyelonephritis complicating in third trimester: Rae is a 23-year-old female at 34+4 G1, P0 who presented with sepsis due to bilateral pyelonephritis with mild hydro but no obstructive CASEY and C. difficile colitis. She was initially treated with ertapenem switched to ertapenem for ESBL Klebsiella pyelonephritis, and Vanco switched to Dificid for C. difficile. She was volume resuscitated for sepsis and initially clinically improved and continued improved on reassessment 03/10 however on 03/11 again had significant abd ominal pain and some clinical regression. Limited KUB did not show any free air suggestive of perforation. tracings were category 1. Given her multiple infections and medical complexity case was reviewed with OB, patient was initially treated with antibiotics and monitored on PCU with medical service however after she failed to progress and had continued severe ongoing pain Case was reviewed with [facility] where patient was accepted for transfer and further monitoring. Betamethasone 12 mg IM x 1 was recommended and given prior to discharge. Last note 03/10 copied below Last progress note copied below for completion: Sepsis due to ESBL Klebsiella pyelonephritis On initial assessment met sepsis criteria suspected 03/11 combined complicated UTI with ESBL Klebsiella and C. diff Renal ultrasound: Mild hydro, bilateral heterogenous parenchymal thickening, small rim of perinephric fluid right-sided. Suspect pyelonephritis White count 26.68, PCT 36.9 Recommend treatment of complicated UTI with ertapenem. Switched from meropenem, pseudomonal coverage with this is not required at this time Reviewed Sensitivities. Do not recommend Augmentin given intermediate resistance to Unasyn although beta-lactamase and this is technically superior has a high risk of failure, and patient is baseline with concerns for penicillin allergy anyway. Levofloxacin is a potential option however this is class C for and additionally there is ciprofloxacin resistance so would prefer to avoid this given patient's sepsis and degree of clinical illness. Continue ertapenem 1 g daily. Will require 7-10day course of treatment. CBC/CMP daily Patient is markedly improved, received 1 fluid bolus overnight and is normot ensive with downtrending tachycardia vastly improved on 03/10 Continue IVFM, rebolus as clinically indicated with either lactate or Plasma- Lyte as needed. Potassium is lower range of normal morning of 03/10, additional 2K riders are ordered with expected ongoing losses with diarrhea. Magnesium lower range of normal, again will give 1 g IV until p.o. intake stabilizes and diarrhea improves. Blood culture 03/09 positive for gram-negative bacilli, consistent with suspected ESBL Klebsiella bacteremia Repeat blood cultures ordered prior to placement of ultrasound-guided IV. Blood cultures not are not typically needed/indicated for uncomplicated gram- negative bacteremia, however recommend this in her situation given ESBL organism, prolonged illness with multiple positive urine cultures since 01/09, and current . Recommend following these is negative for at least 24 hours and then placing ultrasound-guided IV through which placed patient could complete daily infusions as outpatient if otherwise medically stable for discharge at that time. C. difficile diarrhea With recent Macrobid and cefdinir use Treatment is complicated by need for ongoing IV ertapenem for ESBL Klebsiella Recommend treating with vancomycin 4 times daily at this time for severe C. difficile. Dificid reasonable alternative however both are category B, and given concurrent need for ertapenem can easily extend oral vancomycin with a taper down to daily dosing to extend at minimum 7 days past the completion of her ertapenem regimen. Contact precautions, strict handwashing. Patient clinically is improved however diarrhea is not yet improving. Will give a few days for this however now that she is 23 is into initial treatment will add Questran for symptomatic relief ? 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 difficile. However do have concern for multiple concurrent infections in a young healthy female (otitis/URI, ESBL complicated by low, and C. difficile) at the same time. May have some immunocompromise from . No other history of immune compromise. If she has delayed recovery, or continue recurrent infections resolved follow-up with immunoglobulin/immune compromise testing. She was tested for HIV with her this was negative. 34-week , G1, P0 Per V[employer]PECTOR recommendation/management (2) Gestational diabetes: Admission HPI Per Admitting Provider 23-year-old G1, P0 at 34 weeks 2 days presented to emergency department with complaint of fever and back pain. She has a history of pyelonephritis diagnosed during this , has been taking prophylactic Macrobid. She started to feel sick on Tuesday of this week, reports home temperatures of 102 F. Feels feverish and chills. Is drinking fluids, has minimal appetite. Feeling movement. No contractions. No leaking of water, no vaginal ble eding. also complicated by atypical finding on sex chromosomes on panorama testing, gestational diabetes diagnosed with 16-week Glucola. Her most recent urine culture results was 02/22/2024, showed multidrug-resistant Klebsiella pneumoniae UTI. Discharge Exam General: A&Ox3. Appears ill and in pain, but nontoxic HEENT: Atraumatic, normocephalic. Pulm: CTAB A&P. -wheezes, -rales, -rhonchi. Symmetrical chest rise. No increased work of breathing. No respiratory distress. Cardiac: RRR, -mrg. Radial pulses intact and symmetrical. Abdominal: Stented consistent with . Suprapubic and anterior tenderness to palpation. Patient of lateral abdomen is soft and without rigidity/guarding/rebound. She does have CVA tenderness to percussion. Discharge Plan Discharge Items Patient Disposition: Transfer Acute Care Hospital Reason For Visit: PYELONEPHRITIS, CDIFF, SEPSIS Discharge Diagnosis: Pyelonephritis, Cdiff, Sepsis, 34W+4 Activity: As commented below Non-emergency contact: Primary Care Provider Call non-emergency contact if: you have any medication questions and your pain is concerning for you Follow-up/Referrals: Peter Bay CRNP [Primary Care Provider] - Diet: Regular Addtl Attending Provider Instructions: Rae is a 23-year-old female at 34+4 G1, P0 who presented with sepsis due to bilateral pyelonephritis with mild hydro but no obstructive CASEY and C. difficile colitis. She was initially treated with ertapenem switched to ertapenem for ESBL Klebsiella pyelonephritis, and Vanco switched to Dificid for C. difficile. She was volume resuscitated for sepsis and initially clinically improved however had significant abdominal pain and slow clinical progression. Limited KUB did not show any free air suggestive of perforation. tracings were category 1. Given her multiple infections and medical complexity case was reviewed with OB, patient was initially treated with antibiotics and monitored on PCU with medical service however after she failed to progress and had continued severe ongoing pain Case was reviewed with [facility] where patient was accepted for transfer and further monitoring. Betamethasone 12 mg IM x 1 was recommended and given prior to discharge. Last note 03/10 copied below Created: 03/10/2403/03/1441 Date of Service March 10, 2024 Assessment & Plan (1) Pyelonephritis complicating in third trimester: Plan: Sepsis due to ESBL Klebsiella pyelonephritis On initial assessment met sepsis criteria suspected 2/2 combined complicated UTI with ESBL Klebsiella and C. diff Renal ultrasound: Mild hydro, bilateral heterogenous parenchymal thickening, small rim of perinephric fluid right-sided. Suspect pyelonephritis White count 26.68, PCT 36.9 Recommend treatment of complicated UTI with ertapenem. Switched from meropenem, pseudomonal coverage with this is not required at this time Reviewed Sensitivities. Do not recommend Augmentin given intermediate resistance to Unasyn although beta-lactamase and this is technically superior has a high risk of failure, and patient is baseline with concerns for penicillin allergy anyway. Levofloxacin is a potential option however this is class C for and additionally there is ciprofloxacin resistance so would prefer to avoid this given patient's sepsis and degree of clinical illness. Continue ertapenem 1 g daily. Will require 7-10day course of treatment. CBC/CMP daily Patient is markedly improved, received 1 fluid bolus overnight and is normotensive with downtrending tachycardia vastly improved on 03/10 Continue IVFM, rebolus as clinically indicated with either lactate or Plasma- Lyte as needed. Potassium is lower range of normal morning of 03/10, additional 2K riders are ordered with expected ongoing losses with diarrhea. Magnesium lower range of normal, again will give 1 g IV until p.o. intake stabilizes and diarrhea improves. Blood culture 03/09 positive for gram-negative bacilli, consistent with suspected ESBL Klebsiella bacteremia Repeat blood cultures ordered prior to placement of ultrasound-guided IV. Blood cultures not are not typically needed/indicated for uncomplicated gram- negative bacteremia, however recommend this in her situation given ESBL organism, prolonged illness with multiple positive urine cultures since 01/09, and current . Recommend following these is negative for at least 24 hours and then placing ultrasound-guided IV through which placed patient could complete daily infusions as outpatient if otherwise medically stable for discharge at that time. C. difficile diarrhea With recent Macrobid and cefdinir use Treatment is complicated by need for ongoing IV ertapenem for ESBL Klebsiella Recommend treating with vancomycin 4 times daily at this time for severe C. difficile. Dificid reasonable alternative however both are category B, and given concurrent need for ertapenem can easily extend oral vancomycin with a taper down to daily dosing to extend at minimum 7 days past the completion of her ertapenem regimen. Contact precautions, strict handwashing. Patient clinically is improved however diarrhea is not yet improving. Will give a few days for this however now that she is 23 is into initial treatment will add Questran for symptomatic relief Care continuity Patient is markedly improved on reassessment 03/10. tracing is category 1 reassuring and she is doing well from the standpoint. She has multiple complicated medical issues including C. difficile colitis and ESBL complicated UTI which require ongoing medical management and eventual peripheral IV placement. Discussed with [employer], reasonable to transfer patient to medical service however we will continue to perform regular monitoring. ? 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 difficile. However do have concern for multiple concurrent infections in a young healthy female (otitis/URI, ESBL complicated by low, and C. difficile) at the same time. May have some immunocompromise from . No other history of immune compromise. If she has delayed recovery, or continue recurrent infections resolved follow-up with immunoglobulin/immune compromise testing. She was tested for HIV with her this was negative. 34-week , G1, P0 Per [employer]OR recommendation/management Pending Studies at Discharge: No Stand-Alone Forms: My [facility] Skilled Items Patient informed of condition?: No DNR: No Discharge Level of Care: Other Communicable Disease: No Discharge Prognosis: Stable Lines: None Urinary Catheter: No Medications and DC Order Prescriptions: Continued (DME) blood-glucose meter [OneTouch Verio Reflect Meter] Misc See Rx Instructions miscellaneous .MEDSUPPLY Qty: 1 0RF Rx Instructions: As directed nitrofurantoin monohyd/m-cryst [Macrobid] 100 mg capsule 100 mg PO DAILY Qty: 30 1RF Rx Instructions: must administer with a meal/food [id number] 1 mg tablet 1 tab PO DAILY (DME) Ketone Urine Test Strip See Rx Instructions .MEDSUPPLY Qty: 50 5RF Rx Instructions: As directed to check ketones in urine once a day in the morning (DME) OneTouch Verio test strips Strip See Rx Instructions .MEDSUPPLY Qty: 150 5RF Rx Instructions: check blood sugars 4 times a day (DME) lancets [OneTouch Delica Plus Lancet] 33 gauge misc See Rx Instructions .MEDSUPPLY Qty: 150 5RF Rx Instructions: As directed check blood sugars 4 times a day ondansetron 4 mg tablet,disintegrating 4 mg PO Q6H PRN (Reason: nausea and vomiting) Qty: 20 3RF Rx Instructions: needs refill Discharge Orders: Discharge Order (Routine); Ordered 03/11/24 Ordered By: Arsalan Joe Admission Data Admit Date/Time: 03/10/24 17:24 Attending Provider: Arsalan Joe Admit Provider: Arsalan Joe Primary Care Provider: Peter Bay Other Providers: Windy Adams; Arsalan Joe; Karen Marshall; Mirlande Sun; Yuridia Toscano; Oh Plata; Savannah Hankins; Kate Matt Hospital Stay Data Consultations 03/09/24 06:02 ED Decision to Admit Stat 03/09/24 11:58 Consult Hospitalist Routine 03/11/24 07:21 Consult Infectious Diseases Stat Diagnostic Imagining Performed 03/09/24 04:47 US renal/blad retro comp Stat Pending Results Patient Have Any Pending Studies at Discharge: No Discharge Instructions Given to Patient (Per Discharging Provider) Rae is a 23-year-old female at 34+4 G1, P0 who presented with sepsis due to bilateral pyelonephritis with mild hydro but no obstructive CASEY and C. difficile colitis. She was initially treated with ertapenem switched to ertapenem for ESBL Klebsiella pyelonephritis, and Vanco switched to Dificid for C. difficile. She was volume resuscitated for sepsis and initially clinically improved however had significant abdominal pain and slow clinical progression. Limited KUB did not show any free air suggestive of perforation. tracings were category 1. Given her multiple infections and medical complexity case was reviewed with OB, patient was initially treated with antibiotics and monitored on PCU with medical service however after she failed to progress and had continued severe ongoing pain Case was reviewed with [facility] where patient was accepted for transfer and further monitoring. Betamethasone 12 mg IM x 1 was recommended and given prior to discharge. Last note 03/10 copied below Created: 03/10/2403/03/1441 Date of Service March 10, 2024 Assessment & Plan (1) Pyelonephritis complicating in third trimester: Plan: Sepsis due to ESBL Klebsiella pyelonephritis On initial assessment met sepsis criteria suspected / combined complicated UTI with ESBL Klebsiella and C. diff Renal ultrasound: Mild hydro, bilateral heterogenous parenchymal thickening, small rim of perinephric fluid right-sided. Suspect pyelonephritis White count 26.68, PCT 36.9 Recommend treatment of complicated UTI with ertapenem. Switched from meropenem, pseudomonal coverage with this is not required at this time Reviewed Sensitivities. Do not recommend Augmentin given intermediate resistance to Unasyn although beta-lactamase and this is technically superior has a high risk of failure, and patient is baseline with concerns for penicillin allergy anyway. Levofloxacin is a potential option however this is class C for and additionally there is ciprofloxacin resistance so would prefer to avoid this given patient's sepsis and degree of clinical illness. Continue ertapenem 1 g daily. Will require 7-10day course of treatment. CBC/CMP daily Patient is markedly improved, received 1 fluid bolus overnight and is normotensive with downtrending tachycardia vastly improved on 03/10 Continue IVFM, rebolus as clinically indicated with either lactate or Plasma- Lyte as needed. Potassium is lower range of normal morning of 03/10, additional 2K riders are ordered with expected ongoing losses with diarrhea. Magnesium lower range of normal, again will give 1 g IV until p.o. intake stabilizes and diarrhea improves. Blood culture 03/09 positive for gram-negative bacilli, consistent with suspected ESBL Klebsiella bacteremia Repeat blood cultures ordered prior to placement of ultrasound-guided IV. Blood cultures not are not typically needed/indicated for uncomplicated gram- negative bacteremia, however recommend this in her situation given ESBL organism, prolonged illness with multiple positive urine cultures since 01/09, and current . Recommend following these is negative for at least 24 hours and then placing ultrasound-guided IV through which placed patient could complete daily infusions as outpatient if otherwise medically stable for discharge at that time. C. difficile diarrhea With recent Macrobid and cefdinir use Treatment is complicated by need for ongoing IV ertapenem for ESBL Klebsiella Recommend treating with vancomycin 4 times daily at this time for severe C. difficile. Dificid reasonable alternative however both are category B, and given concurrent need for ertapenem can easily extend oral vancomycin with a taper down to daily dosing to extend at minimum 7 days past the completion of her ertapenem regimen. Contact precautions, strict handwashing. Patient clinically is improved however diarrhea is not yet improving. Will give a few days for this however now that she is 23 is into initial treatment will add Questran for symptomatic relief Care continuity Patient is markedly improved on reassessment 03/10. tracing is category 1 reassuring and she is doing well from the standpoint. She has multiple complicated medical issues including C. difficile colitis and ESBL complicated UTI which require ongoing medical management and eventual peripheral IV placement. Discussed with [employer]OR, reasonable to transfer patient to medical service however we will continue to perform regular monitoring. ? 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 difficile. However do have concern for multiple concurrent infections in a young healthy female (otitis/URI, ESBL complicated by low, and C. difficile) at the same time. May have some immunocompromise from . No other history of immune compromise. If she has delayed recovery, or continue recurrent infections resolved follow-up with immunoglobulin/immune compromise testing. She was tested for HIV with her this was negative. 34-week , G1, P0 Per [employer]OR recommendation/management Total Time Total Time Spent Total Time Spent (In Minutes): Time spend day of discharge 80 minutes including direct patient care, documentation, review of labs and images, and coordination of care. Coding Level of Care Code 63546 INP/OBS DISCH >30 MIN Diagnoses Pyelonephritis complicating in third trimester O23.03 Gestational diabetes O24.419
[2024-03-11] MEDS: BETAMETH SOD PHOS/ACETATE IA 6 MG/ML IM STA (10:27)
[2024-03-11 11:21] VITALS: BP 115/74; PULSE 81; O2SAT 98
[2024-03-11] MEDS: LACTATED RINGER'S 1,000 ML IV SCH (12:17)
== END 2024-03-11 14:57 | disposition short-term general hospital (02) | DRG 831 ==
LOC: 4S1 04:28 → ED 04:28 → SUATTDRO 05:54 → 4S1 06:58 → 2E 03-10 17:23

== ENCOUNTER 2024-04-05 09:06 | Inpatient (IN) ==
[2024-04-05 09:51] LABS: Appearance Urine Cloudy (Clear); Bacteria Urine Automated 2+ (None Seen); Bilirubin Urine Negative (Negative); Blood Urine Trace (Negative); Cast Urine Automated 0-2 /lpf (0-2); Color Urine Yellow; Glucose Urine UA Negative (Negative); Ketones Urine Negative (Negative); Leukocyte Esterase Urine 3+ (Negative); Nitrite Urine Negative (Negative); Protein Urine Trace (Negative); RBC Urine Automated 0-2 /hpf (0-2); Specific Gravity Urine 1.012 (1.000-1.030); Urobilinogen Urine Negative (Negative); WBC Urine Automated >50 /hpf (0-5); pH Urine 6.5 (4.5-7.5)
--- NOTE | 2024-04-05 09:56 | Emergency Department Note ---
Impression & Plan Pyelonephritis, 38 weeks gestation of , Infection of drug-resistant bacteria ED Provider Note Name: SHALA DESAI Age: 23 Sex: Female Arrives Via: Walk-In Informant: Patient ED Provider: Chiki Overton MD Chief Complaint: Illness Impression: As per impressions above Medical Decision Making: Pleasant 23-year-old female arrives for evaluation of fever and low back pain in the setting of being 38 weeks . Patient has had 2 hospitalizations for pyelonephritis during this including severe sepsis about a month ago having finished Invanz about 2 weeks ago. Patient arrives with essentially 12 hours and not feeling well and then developing fevers and low back pain consistent with previous episodes of pyelonephritis. She has a known ESBL Klebsiella and multiple previous urine specimens thus presumed as primary cause. Denies any upper respiratory symptoms runny nose or shortness of breath. Sepsis workup had been initiated including with blood cultures. Fortunately lactate is normal. She does have a mildly elevated white blood cell count consistent with infection. Urinalysis is also concerning for acute infection. She does not have any urinary symptoms other than fevers and low back pain but states she does not in previous episodes get UTI-like symptoms with these episodes. She may be early sepsis but she does not have severe sepsis at this time. She was given some IV fluids and after discussion with ID pharmacist we both feel that broad-spectrum meropenem would be indicated given her recent treatments and awaiting the urine culture this around. Patient did end up testing positive for COVID however given she has no other symptoms I am not convinced that this is an active COVID infection causing her symptoms, especially given her history and the findings within the UA. After several discussions with hospitalist and [facility] I do feel that it is reasonable to have her admitted to this facility as she is currently stable with the understanding that she did decompensate somewhat on her previous hospitalization a month ago and eventually required transfer. At this point though there is no requirement for ICU level of care and much of management can be done with consulting of ID and MFM as necessary, with understanding that if she were to get worse it would require transfer to a higher level of care. Triage/Nursing Notes reviewed by Me External Chart Review by me: Discharge summary from March 11, 2024 at the point she was transferred to higher level of care was reviewed by me discussing course of that hospital stay. Differential:Viral syndrome, otitis, pharyngitis, pneumonia, influenza, meningitis, urinary tract infection, sepsis, bacteremia, as well as other pathologies. Vital Signs: reviewed and remarkable for mildly tachycardic consistent with Interventions: # Bolus 1 L IV, meropenem 500 mg IV Labs:ED labs Reviewed by me and remarkable for white blood cell count of 15 Imaging:Deferred chest x-ray given . EKG:As per my interpretation. Indication illness. Normal sinus rhythm at 99 bpm no ectopy no ischemia. QTc of 459. There is no significant change to March 09, 2024 EKG. Cardiac/Tele Monitoring: Cardiac Monitoring: An Order was placed for continuous cardiac monitoring. The monitor shows a rate of 90 with a normal sinus rhythm. Consults:Discussed with Dr. Cobb of [facility] as well as Dr. Chaudhari of hospitalist service Plan: Disposition:Hospitalization. Condition: Good History of Present Illness: 23-year-old female arrives for evaluation of fever and back pain. Patient is 38 weeks with first . She has had 2 previous hospitalizations for pyelonephritis during this . She finished and ertapenem course 2 weeks ago following most recent pyelonephritis. Patient notes that for the last 16 hours she has been feeling well. Overnight she developed fevers and started developing low back pain similar to previous episodes of pyelonephritis. Associated with some fatigue and generalized illness. Denies any nausea, vomiting, chest pain, shortness of breath, runny nose, abdominal pain, leg swelling or other concerning signs or symptoms. She is not having any urinary burning but states she does not usually get any urinary symptoms with her previous pyelonephritis. Patient states the baby continues to move. Denies any falls, trauma, injuries. No medications other than Tylenol prior to arrival. Patient notes that she continues to feel the baby kick and move. Past Medical History:See Below Home Medications:See Below Allergies:See Below Vitals:Blood Pressure: 126/90, Pulse 104, RR 14, T 36.8C, O2 97% on RA Physical Exam: GENERAL: Patient is dehydrated appearing and in mild distress. RESPIRATORY: No dyspnea. Clear to auscultation and equal bilaterally. CARDIOVASCULAR: Tachy.No murmur appreciated. GASTROINTESTINAL: Abdomen soft, non-tender, no peritonitis. BACK: No midline tenderness EXTREMITIES: Normal motion all extremities, no cyanosis, no edema. NEUROLOGIC: Alert and oriented. No focal neurologic deficits appreciated SKIN: No rash, no jaundice, no diaphoresis. PSYCH: Appropriate GCS: 15 ED Course: Times/Reassessments: Multiple repeat evaluations patient. Continues to maintain blood pressure. Chiki Overton MD Past Med/Surg History Problem List (Updated 04/06/24 @ 01:35 by Alvaro Head MD) 34 weeks gestation of Infection of drug-resistant bacteria (Acute) 38 weeks gestation of (Acute) Term Pyelonephritis (Acute) C. difficile diarrhea Pyelonephritis complicating in third trimester (Acute) Back pain (Acute) Fever (Acute) Pyelonephritis affecting in second trimester (Acute) Pyelonephritis affecting in second trimester Encounter for anatomic survey Supervision of normal intrauterine in primigravida Low iron Vitamin D deficiency B12 deficiency Renal cyst MRI- 04/2022--9 mm hemorrhagic versus proteinaceous cyst of the left kidney Abnormal CT scan, kidney CT noted 04/01/22-Heterogeneous enhancement within the kidneys Anxiety Leukocytosis Family history of other cardiovascular diseases Family history of aortic aneurysm and sent to cardiology. Contraceptive surveillance ON OCPS. DENIES FAMILY HISTORY OF BREAST CANCER OR THROMBOTIC DISORDER/STROKE. DENIES SMOKING, MIGRAINES, LIVER DISEASE, ANTICONVULSANTS OR RECENT . Medical History (Updated 04/06/24 @ 01:35 by Alvaro Head MD) Anemia Pyelonephritis Gestational diabetes Lyme disease AT AGE 9. Repeat titers in Feb 2019 negative on western blot. Surgical History S/P ACL repair Family History Father Hypertension Myocardial infarction Family history of leukocytosis Diabetes Dyslipidemia Grandfather (Paternal) Aneurysm of abdominal aorta Denies family history of Ovarian cancer Prostate cancer Bipolar disorder Colorectal cancer Social History Smoking Status: Never smoker Second Hand Exposure: No; Do You Dip or Chew Tobacco: No; Hx Alcohol Use: No Hx Substance Use: No Preferred Language: Salvadorean Communication Ability: Effective Visual Impairment: No Limitations Hearing Ability: Normal Chemical Compounder Required: No Beliefs That Will Affect Care: None marital status: Single marital status details: Douglas (22) [phone] Current Living Situation: Parent and Family Current Living Situation Comment: lives with mom and dad, grandmother, 2 cats, gram changing litter current occupational status: employed current occupation: working at [employer] Feels Safe at Home: Yes Childhood Exposure to Second-Hand Smoke: No Diet: regular Diet Comment: regular caffeine: Yes during the past year weight has: remained stable Dental Care, Regularly: Yes Physical Activity Frequency: 5-6 Times per Week Seatbelt Use: always Sunscreen Use: Yes Assistive Devices: None Allergies Allergies Allergy/AdvReac Type Severity Reaction Status Date / Time Penicillins Allergy Mild RASH Verified 04/04/24 08:12 Home Meds Home Medications Medication Instructions Recorded Confirmed [id number] 1 mg 1 tab PO DAILY 09/01/23 04/05/24 tablet famotidine 20 mg tablet (Pepcid) 20 mg PO DAILY PRN Heartburn 03/16/24 04/05/24 folic acid 1 mg tablet 1 mg PO DAILY 03/16/24 04/05/24 ondansetron 4 mg disintegrating 4 mg PO Q8H 03/16/24 04/05/24 tablet Tylenol 1,000 mg PO DIRECTED PRN Pain 04/05/24 04/05/24 Previous Rx's Medication Instructions Recorded acetone (urine) test (Ketone Urine #50 ea 12/08/23 Test strips) blood sugar diagnostic (OneTouch #150 ea 12/08/23 Verio test strips) lancets 33 gauge (OneTouch Delica #150 ea 12/08/23 Plus Lancet) blood-glucose meter (OneTouch #1 ea 01/02/24 Verio Reflect Meter) cephalexin 500 mg capsule 500 mg PO QPM #40 caps 03/21/24 Results & Data (ED) Vital Signs Vital Signs - 24 hr 04/05/24 09:28 04/05/24 10:11 04/05/24 10:54 Temperature 36.8 C Temperature Source Oral Pulse Rate 104 H 105 H Pulse Rate [Apical] 102 H Pulse Rate from SpO2 Sensor Pulse Rhythm [Apical] Regular Respiratory Rate 14 14 Respiratory Effort / Characteristics Non-Labored Spontaneous Non-Labored Spontaneous Respiratory Depth Normal Normal Blood Pressure 126/90 Blood Pressure [Right Arm] 136/84 Blood Pressure Mean 102 Blood Pressure Mean [Right Arm] 101 Pulse Oximetry 97 98 Oxygen Delivery Method Room Air Room Air Sepsis Recent Fever Within 48 Hours Yes Sepsis New/Unexplained Change in Mental Status Yes Sepsis Action Taken by Nursing No Action Required 04/05/24 11:03 Temperature Temperature Source Pulse Rate 104 H Pulse Rate [Apical] Pulse Rate from SpO2 Sensor 104 H Pulse Rhythm [Apical] Respiratory Rate 17 Respiratory Effort / Characteristics Respiratory Depth Blood Pressure 139/96 Blood Pressure [Right Arm] Blood Pressure Mean 110 Blood Pressure Mean [Right Arm] Pulse Oximetry 100 Oxygen Delivery Method Sepsis Recent Fever Within 48 Hours Sepsis New/Unexplained Change in Mental Status Sepsis Action Taken by Nursing Laboratory Data 04/06/24 06:09 04/06/24 06:09 Lab Results 04/05/24 04/05/24 04/05/24 Range/Units 09:20 09:34 09:37 WBC 15.07 H (4.8-10.8) K/ul RBC 3.89 L (4.20-5.40) M/uL Hgb 11.2 L (12.0-16.0) g/dl Hct 32.7 L (37.0-47.0) % MCV 84.1 (80.0-100.0) fL MCH 28.8 (25.0-34.0) pg MCHC 34.3 (32.0-36.0) g/dL RDW Std Deviation 40.6 (36.4-46.3) fL RDW Coeff of [place] 13.4 (11.5-14.5) % Plt Count 353 (130-400) K/uL MPV 9.3 L (9.4-12.4) fL Immature Gran % (Auto) 1.3 % Neut % (Auto) 80.3 % Lymph % (Auto) 10.6 % [place] % (Auto) 7.1 % Eos % (Auto) 0.3 % Baso % (Auto) 0.4 % Neut # (Auto) 12.10 H (1.40-6.50) K/uL Lymph # (Auto) 1.60 (1.20-3.40) K/uL [place] # (Auto) 1.07 H (0.11-0.59) K/uL Eos # (Auto) 0.05 (0.00-0.50) K/uL Baso # (Auto) 0.06 (0.00-0.20) K/uL Immature Gran # (Auto) 0.19 (0.01-0.20) K/uL PT 10.6 (9.0-12.0) Seconds INR 1.0 (0.9-1.1) APTT 31 (21-31) Seconds PTT Ratio 1.2 Sodium 134 L (136-145) mmol/L Potassium 3.1 L (3.5-5.1) mmol/L Chloride 105 (98-107) mmol/L Carbon Dioxide 19 L (21-32) mmol/L Anion Gap 10 (3-11) BUN 5 L (6-23) mg/dl Creatinine 0.58 L (0.6-1.2) mg/dl Est Cr Clr Drug Dosing 155.8 ml/min eGFR 129.52 BUN/Creatinine Ratio 8.6 L (10-20) Glucose 115 H (70-99(Fasting)) mg/dl Lactate 1.1 (0.4-2.0) mmol/L Calcium 8.9 (8.6-10.3) mg/dl Magnesium 1.5 L (1.7-2.4) mg/dl Total Bilirubin 0.7 (0.2-1.0) mg/dl AST 9 L (13-39) U/L ALT 7 (7-52) U/L Alkaline Phosphatase 188 H (34-104) U/L Troponin I High Sens 3.7 (0-14) pg/ml Total Protein 7.0 (6.0-8.3) gm/dl Albumin 3.8 (3.4-5.0) gm/dl Globulin 3.2 (2.5-4.0) gm/dl Albumin/Globulin Ratio 1.2 (0.9-2) Procalcitonin 0.09 (0-0.5) ng/ml Urine Color Yellow Urine Appearance Cloudy A (Clear) Urine pH 6.5 (4.5-7.5) Ur Specific [place] 1.012 (1.000-1.030) Urine Protein Trace H (Negative) Urine Glucose (UA) Negative (Negative) Urine Ketones Negative (Negative) Urine Blood Trace H (Negative) Urine Nitrite Negative (Negative) Urine Bilirubin Negative (Negative) Urine Urobilinogen Negative (Negative) Ur Leukocyte Esterase 3+ H (Negative) Urine WBC (Auto) >50 H (0-5) /hpf Urine RBC (Auto) 0-2 (0-2) /hpf U Hyaline Cast (Auto) 0-2 (0-2) /lpf U Epithel Cells (Auto) 3-5 H (0-2) /hpf Urine Bacteria (Auto) 2+ H (None Seen) Treponema pallidum Ab Negative (Negative) SARS-CoV-2 (PCR) (Negative) Influenza Type A (PCR) (Neg) Influenza Type B (PCR) (Neg) RSV (RT-PCR) (Neg) 04/05/24 Range/Units 10:02 WBC (4.8-10.8) K/ul RBC (4.20-5.40) M/uL Hgb (12.0-16.0) g/dl Hct (37.0-47.0) % MCV (80.0-100.0) fL MCH (25.0-34.0) pg MCHC (32.0-36.0) g/dL RDW Std Deviation (36.4-46.3) fL RDW Coeff of Herminia (11.5-14.5) % Plt Count (130-400) K/uL MPV (9.4-12.4) fL Immature Gran % (Auto) % Neut % (Auto) % Lymph % (Auto) % [place] % (Auto) % Eos % (Auto) % Baso % (Auto) % Neut # (Auto) (1.40-6.50) K/uL Lymph # (Auto) (1.20-3.40) K/uL [place] # (Auto) (0.11-0.59) K/uL Eos # (Auto) (0.00-0.50) K/uL Baso # (Auto) (0.00-0.20) K/uL Immature Gran # (Auto) (0.01-0.20) K/uL PT (9.0-12.0) Seconds INR (0.9-1.1) APTT (21-31) Seconds PTT Ratio Sodium (136-145) mmol/L Potassium (3.5-5.1) mmol/L Chloride (98-107) mmol/L Carbon Dioxide (21-32) mmol/L Anion Gap (3-11) BUN (6-23) mg/dl Creatinine (0.6-1.2) mg/dl Est Cr Clr Drug Dosing ml/min eGFR BUN/Creatinine Ratio (10-20) Glucose (70-99(Fasting)) mg/dl Lactate (0.4-2.0) mmol/L Calcium (8.6-10.3) mg/dl Magnesium (1.7-2.4) mg/dl Total Bilirubin (0.2-1.0) mg/dl AST (13-39) U/L ALT (7-52) U/L Alkaline Phosphatase (34-104) U/L Troponin I High Sens (0-14) pg/ml Total Protein (6.0-8.3) gm/dl Albumin (3.4-5.0) gm/dl Globulin (2.5-4.0) gm/dl Albumin/Globulin Ratio (0.9-2) Procalcitonin (0-0.5) ng/ml Urine Color Urine Appearance (Clear) Urine pH (4.5-7.5) Ur Specific [place] (1.000-1.030) Urine Protein (Negative) Urine Glucose (UA) (Negative) Urine Ketones (Negative) Urine Blood (Negative) Urine Nitrite (Negative) Urine Bilirubin (Negative) Urine Urobilinogen (Negative) Ur Leukocyte Esterase (Negative) Urine WBC (Auto) (0-5) /hpf Urine RBC (Auto) (0-2) /hpf U Hyaline Cast (Auto) (0-2) /lpf U Epithel Cells (Auto) (0-2) /hpf Urine Bacteria (Auto) (None Seen) Treponema pallidum Ab (Negative) SARS-CoV-2 (PCR) POSITIVE A (Negative) Influenza Type A (PCR) Negative (Neg) Influenza Type B (PCR) Negative (Neg) RSV (RT-PCR) Negative (Neg) Administered Medications Acetaminophen (Acetaminophen 500 Mg Tab) 1,000 mg PO Q8H PRN PRN Reason: Pain Stop: 05/05/24 16:18 Last Admin: 04/05/24 20:52 Dose: 1,000 mg Documented By: NICCI Lactated Ringer's (Lr) 1,000 mls @ 125 mls/hr IV .Q8H PRN; Protocol PRN Reason: L&D Protocol Stop: 04/06/24 16:00 Last Infusion: 04/06/24 06:30 Dose: 125 mls/hr Documented By: Admin: 04/06/24 06:07 Dose: 999 mls/hr Documented By: Infusion: 04/06/24 06:07 Dose: Infused Documented By: Infusion: 04/06/24 01:50 Dose: 125 mls/hr Documented By: Admin: 04/06/24 01:27 Dose: 999 mls/hr Documented By: Infusion: 04/06/24 01:15 Dose: Infused Documented By: Infusion: 04/05/24 22:05 Dose: 125 mls/hr Documented By: Infusion: 04/05/24 21:18 Dose: 999 mls/hr Documented By: Infusion: 04/05/24 21:01 Dose: 0 mls/hr Documented By: Admin: 04/05/24 20:54 Dose: 999 mls/hr Documented By: TNW Meropenem 1,000 mg/ Syringe 20 mls @ 2 mls/min IV Q8H DOROTHEA; Protocol Stop: 04/12/24 16:59 Last Admin: 04/06/24 00:47 Dose: 2 mls/min Documented By: Admin: 04/05/24 18:03 Dose: 2 mls/min Documented By: TBB Oxytocin (Pitocin 30 Units/Nss) 30 units in 500 mls @ 0 mls/hr IV .Q0M PRN; Protocol PRN Reason: Labor Induction/Augmentation Stop: 04/07/24 20:02 Last Titration: 04/06/24 06:00 Dose: 0 units/hr, 0 mls/hr Documented By: Titration: 04/06/24 00:50 Dose: 0.6 units/hr, 10 mls/hr Documented By: Titration: 04/06/24 00:02 Dose: 0.48 units/hr, 8 mls/hr Documented By: Titration: 04/05/24 23:16 Dose: 0.36 units/hr, 6 mls/hr Documented By: Titration: 04/05/24 22:40 Dose: 0.24 units/hr, 4 mls/hr Documented By: Titration: 04/05/24 22:17 Dose: 0.12 units/hr, 2 mls/hr Documented By: Admin: 04/05/24 22:06 Dose: 0.12 units/hr, 2 mls/hr Documented By: NICCI Co-signed By: DARLENE Ondansetron HCl (Ondansetron Inj 2 Mg/Ml 2 Ml Vial) 4 mg IV Q6H PRN PRN Reason: Nausea And Vomiting Stop: 05/05/24 16:18 Last Admin: 04/06/24 08:06 Dose: 4 mg Documented By: Admin: 04/06/24 01:47 Dose: 4 mg Documented By: JCW Discontinued Medications Acetaminophen (Acetaminophen 500 Mg Tab) 1,000 mg PO NOW STA Stop: 04/05/24 13:04 Last Admin: 04/05/24 13:08 Dose: 1,000 mg Documented By: NITO Bupivacaine HCl (Bupivacaine 0.25% Pf 30 Ml Vial) Confirm Administered Dose 30 ml .ROUTE .STK-MED ONE Stop: 04/06/24 01:22 Last Admin: 04/06/24 02:05 Dose: 30 ml Documented By: NICCI Ephedrine Sulfate (Ephedrine Sulfate 50 Mg/Ml Amp) Confirm Administered Dose 50 mg .ROUTE .STK-MED ONE Stop: 04/06/24 01:21 Last Admin: 04/06/24 04:09 Dose: Not Given Documented By: NICCI Fentanyl Citrate (Fentanyl Citrate Pf 100 Mcg/2 Ml Vial) Confirm Administered Dose 100 mcg .ROUTE .STK-MED ONE Stop: 04/06/24 01:21 Last Increment: 04/06/24 02:06 Dose: 10 mcg Documented By: NICCI Fentanyl/Bupivacaine/Sodium Chlor (Fentanyl 2 Mcg/Ml Bupivacaine 0.125%-Nss 100ml Bag) Confirm Administered Dose 100 ml .ROUTE .STK-MED ONE Stop: 04/06/24 01:22 Last Admin: 04/06/24 02:08 Dose: 100 ml Documented By: NICCI Co-signed By: JASWANT Sodium Chloride (Nss) 1,000 mls @ 999 mls/hr IV .Q1H1M ONE Stop: 04/05/24 10:52 Last Infusion: 04/05/24 11:21 Dose: Infused Documented By: Admin: 04/05/24 10:01 Dose: 999 mls/hr Documented By: NICKY Meropenem 500 mg/ Syringe 10 mls @ 2 mls/min IV NOW STA; Protocol Stop: 04/05/24 10:50 Last Admin: 04/05/24 11:41 Dose: 2 mls/min Documented By: BS Potassium Chloride (K Porfirio / Wtr) 10 meq in 100 mls @ 100 mls/hr IV Q1H DOROTHEA Stop: 04/05/24 15:14 Last Infusion: 04/05/24 18:32 Dose: Infused Documented By: Admin: 04/05/24 17:19 Dose: 100 mls/hr Documented By: Infusion: 04/05/24 15:27 Dose: Infused Documented By: Admin: 04/05/24 14:27 Dose: 100 mls/hr Documented By: Infusion: 04/05/24 14:08 Dose: Infused Documented By: Admin: 04/05/24 13:08 Dose: 100 mls/hr Documented By: NITO Acetaminophen (Ofirmev) 1,000 mg in 100 mls @ 400 mls/hr IV NOW STA Stop: 04/06/24 08:12 Last Admin: 04/06/24 08:07 Dose: 400 mls/hr Documented By: VIANNEY Lidocaine/Epinephrine (Lidocaine 2%/Epinephrine 1:200,000 20 Ml Pf) Confirm Administered Dose 20 ml .ROUTE .STK-MED ONE Stop: 04/06/24 01:22 Last Admin: 04/06/24 02:07 Dose: 20 ml Documented By: NICCI Magnesium Oxide (Magnesium Oxide 400 Mg Tab) 400 mg PO BID [facility] Stop: 04/05/24 21:01 Last Admin: 04/05/24 20:52 Dose: 400 mg Documented By: Admin: 04/05/24 13:08 Dose: 400 mg Documented By: NITO Ondansetron HCl (Ondansetron Inj 2 Mg/Ml 2 Ml Vial) 4 mg IV NOW STA Stop: 04/05/24 12:47 Last Admin: 04/05/24 13:08 Dose: 4 mg Documented By: NITO Oxycodone HCl (Oxycodone Hcl Ir 5 Mg Tab (Immediate Release)) 5 mg PO NOW STA Stop: 04/05/24 13:05 Last Admin: 04/05/24 17:51 Dose: Not Given Documented By: TBB Potassium Chloride (Potassium Chloride Crtab 20 Meq Tabcr) 20 meq PO NOW STA Stop: 04/05/24 12:11 Last Admin: 04/05/24 13:19 Dose: Not Given Documented By: NITO Potassium Chloride (Potassium Chloride 20 Meq/15 Ml Udc) 20 meq PO NOW STA Stop: 04/05/24 12:54 Last Admin: 04/05/24 14:27 Dose: 20 meq Documented By: NITO Sodium Chloride (Sodium Chloride 0.9% Pf Inj 10 Ml Vial) Confirm Administered Dose 10 ml .ROUTE .STK-MED ONE Stop: 04/06/24 01:22 Last Admin: 04/06/24 02:23 Dose: Not Given Documented By: TNW Discharge Plan Visit Data Chief Complaint: Fever Stated Complaint: illness ED Provider: Chiki Overton Discharge Problem: Pyelonephritis, 38 weeks gestation of , Infection of drug-resistant bacteria Patient Disposition: Admitted As Inpatient Discharge Instructions Interventions: ED Discharge Assessment Last Done: 04/05/24 14:36
[2024-04-05] MEDS: SODIUM CHLORIDE 0.9% 1,000 ML IV ONE (10:01)
[2024-04-05 10:29] LABS: Basophils # (auto) 0.06 K/uL (0.00-0.20); Basophils % (auto) 0.4 %; Eosinophils # (auto) 0.05 K/uL (0.00-0.50); Eosinophils % (auto) 0.3 %; Hematocrit (blood only) 32.7 % (37.0-47.0); Hemoglobin 11.2 g/dl (12.0-16.0); Immature Granulocytes # (auto) 0.19 K/uL (0.01-0.20); Immature Granulocytes % (auto) 1.3 %; Lymphocytes % (auto) 10.6 %; Mean Corpuscular Hemoglobin 28.8 pg (25.0-34.0); Mean Corpuscular Hgb Conc 34.3 g/dL (32.0-36.0); Mean Corpuscular Volume 84.1 fL (80.0-100.0); Mean Platelet Volume 9.3 fL (9.4-12.4); Monocytes # (auto) 1.07 K/uL (0.11-0.59); Monocytes % (auto) 7.1 %; Neutrophils % (auto) 80.3 %; Platelet Count 353 K/uL (130-400); RDW Coefficient of Variation 13.4 % (11.5-14.5); RDW Standard Deviation 40.6 fL (36.4-46.3); Red Blood Count 3.89 M/uL (4.20-5.40); White Blood Count 15.07 K/ul (4.8-10.8)
[2024-04-05 10:36] LABS: Albumin Globulin Ratio 1.2 (0.9-2); Albumin Level 3.8 gm/dl (3.4-5.0); BUN Creatinine Ratio 8.6 (10-20); Bilirubin,Total 0.7 mg/dl (0.2-1.0); Calcium 8.9 mg/dl (8.6-10.3); Creatinine Clr Calc Pharmacy 155.8 ml/min; Globulin 3.2 gm/dl (2.5-4.0); Magnesium 1.5 mg/dl (1.7-2.4); Potassium 3.1 mmol/L (3.5-5.1)
[2024-04-05 10:42] LABS: Troponin I High Sensitivity 3.7 pg/ml (0-14)
[2024-04-05 10:50] LABS: Partial Thromboplastin Ratio 1.2; Partial Thromboplastin Time 31 Seconds (21-31); Prothrombin Time 10.6 Seconds (9.0-12.0)
[2024-04-05] MEDS: MEROPENEM 500 MG in SYRINGE 0 ML IV STA (11:41)
--- NOTE | 2024-04-05 12:02 | History & Physical Report ---
Date of Service April 05, 2024 Assessment & Plan (1) Pyelonephritis complicating in third trimester: Plan: Rae is a 23-year-old G1, P0 currently at 38 weeks 1 day gestational age with acute recurrent multidrug-resistant pyelonephritis. Patient does not appear acutely septic at present. I discussed patient with MFM at [facility] who recommended stabilizing with IV antibiotics and then proceeding with induction of labor when afebrile for 12 hours. Has been afebrile since admission to the emergency department and will continue to monitor. Will admit to labor and delivery for continuous monitoring. Plan to begin induction at 12 hours of documented afebrile. Patient is a diet-controlled gestational diabetic with normal range blood sugars noted. Mild tachycardia but vitals otherwise stable. (2) Supervision of normal intrauterine in primigravida: (3) Gestational diabetes: (4) Term : History of Present Illness Primary Care Provider: MAGALY Ureña Rae is a 23-year-old currently at 38 weeks 1 day gestational age presented to the ED with acute recurrent multidrug-resistant polynephritis. Noted acute onset flank pain and low-grade fever today. Has been afebrile in the ED and had a notable white count of 15,000. UA was positive for 2+ bacteria and leukocyte esterase. I discussed Rae's presentation with maternal- medicine at [place] where she was last admitted for the urosepsis. Discussed the noted reoccurrence at 38 weeks gestational age. [facility] stabilizing for at least 12 hours afebrile on antibiotics and then proceeding with delivery via induction of labor. I discussed recommendation with Rae who is agreeable with plan. Medicine consulted for acute management of pyelonephritis. Discussed with medicine the possibility of transfer if she was noted to acutely decompensate and become severely septic while on antibiotics. 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 Diff in OB labs: OB Labs: Blood Type O Positive 09/26/23 Antibody Screen NEGATIVE 09/26/23 Hgb 11.2 g/dl (12.0-16.0) L 03/20/24 Hct 33.0 % (37.0-47.0) L 03/20/24 MCV 84.2 fL (80.0-100.0) 03/20/24 Plt Count 402 K/uL (130-400) H 03/20/24 VZV IgG Antibody <135.00 Index (>=165.00) L 07/21/20 Rubella IgG Antibody Immune (Immune) 09/26/23 Treponema pallidum Ab Negative (Negative) 03/09/24 Hep Bs Antigen Negative (Negative) 09/26/23 Hepatitis C Antibody Negative (Negative) 09/26/23 Hepatitis C Ab (EIA) NON-REACTIVE (NON-REACTIVE) 06/17/21 HIV 1&2 Ab/P24 Ag 4thGn Negative (Negative) 09/26/23 Glucose 1 Hr 50 gm 238 mg/dl (70-130) H 12/02/23 OB Optional Labs: Chlamydia trachomatis RNA Not Detected (NotDetected) 09/07/23 Neisseria gonorrhoeae RNA Not Detected (NotDetected) 09/07/23 Thyroid Stimulating Hormone (TSH) 1.500 uIu/ml (0.300-4.500) 01/26/23 Allergies Allergy/AdvReac Type Severity Reaction Status Date / Time Penicillins Allergy Mild RASH Verified 04/04/24 08:12 Home Medications Medication Instructions Recorded Confirmed Type [id number] 1 mg 1 tab PO DAILY 09/01/23 04/05/24 History tablet acetone (urine) test (Ketone Urine #50 ea 12/08/23 04/04/24 Rx Test strips) blood sugar diagnostic (OneTouch #150 ea 12/08/23 04/04/24 Rx Verio test strips) lancets 33 gauge (OneTouch Delica #150 ea 12/08/23 04/04/24 Rx Plus Lancet) blood-glucose meter (OneTouch #1 ea 01/02/24 04/04/24 Rx Verio Reflect Meter) famotidine 20 mg tablet (Pepcid) 20 mg PO DAILY PRN Heartburn 03/16/24 04/05/24 History folic acid 1 mg tablet 1 mg PO DAILY 03/16/24 04/05/24 History ondansetron 4 mg disintegrating 4 mg PO Q8H 03/16/24 04/05/24 History tablet cephalexin 500 mg capsule 500 mg PO QPM #40 caps 03/21/24 04/05/24 Rx Tylenol 1 tab PO DIRECTED PRN Pain 04/05/24 04/05/24 History Patient History Medical History 34 weeks gestation of Lyme disease Surgical History S/P ACL repair Family History Father Hypertension Myocardial infarction Family history of leukocytosis Diabetes Dyslipidemia Grandfather (Paternal) Aneurysm of abdominal aorta Denies family history of Ovarian cancer Prostate cancer Bipolar disorder Colorectal cancer Social History Smoking Status: Never smoker Second Hand Exposure: No; Do You Dip or Chew Tobacco: No; Hx Alcohol Use: No Hx Substance Use: No Preferred Language: Hebrew Communication Ability: Effective Visual Impairment: No Limitations Hearing Ability: Normal Wire Photo Operator Required: No Beliefs That Will Affect Care: None marital status: Single marital status details: Douglas (22) [phone] Current Living Situation: Parent Current Living Situation Comment: lives with mom and dad, grandmother, 2 cats, gram changing litter current occupational status: employed current occupation: working at [employer] Feels Safe at Home: Yes Childhood Exposure to Second-Hand Smoke: No Diet: regular Diet Comment: regular caffeine: Yes during the past year weight has: remained stable Dental Care, Regularly: Yes Physical Activity Frequency: 5-6 Times per Week Seatbelt Use: always Sunscreen Use: Yes Assistive Devices: None Physical Exam Gastrointestinal (Abdomen): Percussion/Palpation: abdomen soft; abdomen nontender, no guarding and abdomen not rigid Positive CVA tenderness Genitourinary: Will begin monitoring on admission to labor and delivery. Results & Data Vital Signs (Past 12 Hours) Vital Signs Temp Pulse Pulse Resp BP BP Pulse Ox 04/05/24 10:54 102 H 14 136/84 98 04/05/24 10:11 105 H 04/05/24 09:28 36.8 C 104 H 14 126/90 97 O2 Del Method 04/05/24 10:54 Room Air 02/27/25 10:11 04/05/24 09:28 Room Air Coding Level of Care Code 73247 INT INP/OBS CARE MIN Diagnoses Pyelonephritis complicating in third trimester O23.03 Encounter for supervision of normal first in third trimester Z34.03 Trimester: third trimester Diet controlled gestational diabetes mellitus (GDM) in third trimester O24.410 Gestational diabetes mellitus control: diet-controlled Trimester: third trimester Term Z34.90 (2) Supervision of normal intrauterine in primigravida Trimester: third trimester Qualified Code(s): Z34.03 - Encounter for supervision of normal first , third trimester (3) Gestational diabetes Gestational diabetes mellitus control: diet-controlled Trimester: third trimester Qualified Code(s): O24.410 - Gestational diabetes mellitus in , diet controlled
--- NOTE | 2024-04-05 12:04 | Hospitalist Consultation ---
Date of Consultation April 05, 2024 Assessment & Plan (1) Pyelonephritis: Assessment: 1. Probable pyelonephritis with urinary tract infection. Complicated by 38- week gestation. With recurrent pyelonephritis with recent stenting [facility] with a course of ertapenem. Last urinalysis grew ESBL E. coli sensitive to both ertapenem and meropenem. Clinical pharmacy here recommended meropenem. She received a 500 mg dose. Given the complexity of the infection we have consulted infectious disease we are awaiting a callback currently. This dose may want to be escalated to 1 g every 8 hours but I am going to defer to infectious disease. 2. Concern for impending sepsis given the patient's history of clinical sepsis several weeks ago requiring transfer to [facility]. The patient is mildly tachycardic here she is normotensive. She is afebrile currently. Monitor carefully for signs and symptoms of sepsis. Blood cultures have been obtained. Again infectious diseases been consulted. Again discussed at length with both the ER provider Dr. Overton as well as the admitting physician obstetrics Dr. Cobb. 3. Recent history of C. difficile colitis requiring oral vancomycin course. 4. Anemia. Probably secondary to . This has been quite stable over the last 2 months. She is on appropriate multivitamin therapy/ vitamins excetra. 5. Mild hypokalemia. 3.1. We will give some IV and oral potassium will do 30 mEq IV x 1. And 20 orally x 1. 6. Hypomagnesemia. 1.5. Will give 400mg of mag oxide x 2 doses Plan: As discussed above. Again we are awaiting callback from infectious disease at which point we will order antibiotic therapy per their recommendation. Please refer to orders for further planning. We thank you for the opportunity to Co. participate in the care of Rae during her hospitalization here as she convalesces her pyelonephritis and late term . We will follow-up on the renal ultrasound as well. Will continue to follow daily and as needed. History of Present Illness Reason for Consultation: Bilateral flank pain with a complicated history of recurrent pyelonephritis History of Present Illness This is a pleasant 23-year-old female who is 1 para 0 and she is 38 weeks gestation. She has had an extraordinarily complex over the last couple months. She has had recurrent UTIs. Multidrug-resistant ESBL Klebsiella. Recently in a tertiary care center/[facility] with maternal- medicine. Completed a course of ertapenem. Over the last couple days she has had increased flank pain and low-grade fevers at home. She is a registered nurse here in ER and therefore presented to the ER with symptoms that are analogous as they were several weeks ago when she presented. Several weeks ago when she presented she actually developed significant clinical sepsis with impending shock and at that point was transferred down [facility]. Today she presents with a white count of 15,000. She is being admitted to obstetrics Dr. Cobb. I been contacted by the ER provider that obstruction is read requesting a medical consultation. In the ER she has been hemodynamically stable. Normotensive 136/84 heart rate as high as 104 but stable. On room air at 98% and currently afebrile. I personally have spoken with Dr. Cobb. Concerned about risk and benefits of keeping the patient locally versus transferring from the ER back to tertiary care center to maternal- medicine. Dr. Cobb has spoken to [place] and does feel the patient is safe to stay here currently and the tentative plan is to plan for induction and delivery after afebrile for 12 to 24 hours per my understanding. Meropenem was ordered in the ER. Again the patient just completed a course of ertapenem. I have a page out to infectious disease at the time of this dictation to clarify the dose of meropenem. I will defer to clinical infectious disease for that recommendation currently CBC 500 mg x 1. Blood cultures again have been obtained. Urine cultures have been obtained. The patient's has also been complicated over the last couple months with C. difficile and norovirus. Allergies Allergy/AdvReac Type Severity Reaction Status Date / Time Penicillins Allergy Mild RASH Verified 04/04/24 08:12 Home Medications Medication Instructions Recorded Confirmed Type [id number] 1 mg 1 tab PO DAILY 09/01/23 04/05/24 History tablet acetone (urine) test (Ketone Urine #50 ea 12/08/23 04/04/24 Rx Test strips) blood sugar diagnostic (OneTouch #150 ea 12/08/23 04/04/24 Rx Verio test strips) lancets 33 gauge (OneTouch Delica #150 ea 12/08/23 04/04/24 Rx Plus Lancet) blood-glucose meter (OneTouch #1 ea 01/02/24 04/04/24 Rx Verio Reflect Meter) famotidine 20 mg tablet (Pepcid) 20 mg PO DAILY PRN Heartburn 03/16/24 04/05/24 History folic acid 1 mg tablet 1 mg PO DAILY 03/16/24 04/05/24 History ondansetron 4 mg disintegrating 4 mg PO Q8H 03/16/24 04/05/24 History tablet cephalexin 500 mg capsule 500 mg PO QPM #40 caps 03/21/24 04/05/24 Rx Tylenol 1 tab PO DIRECTED PRN Pain 04/05/24 04/05/24 History Patient History Medical History 34 weeks gestation of Lyme disease Surgical History S/P ACL repair Family History Father Hypertension Myocardial infarction Family history of leukocytosis Diabetes Dyslipidemia Grandfather (Paternal) Aneurysm of abdominal aorta Denies family history of Ovarian cancer Prostate cancer Bipolar disorder Colorectal cancer Social History Smoking Status: Never smoker Second Hand Exposure: No; Do You Dip or Chew Tobacco: No; Hx Alcohol Use: No Hx Substance Use: No Preferred Language: Syriac Communication Ability: Effective Visual Impairment: No Limitations Hearing Ability: Normal Billet Examiner Required: No Beliefs That Will Affect Care: None marital status: Single marital status details: Douglas (22) [phone] Current Living Situation: Parent Current Living Situation Comment: lives with mom and dad, grandmother, 2 cats, gram changing litter current occupational status: employed current occupation: working at [employer] Feels Safe at Home: Yes Childhood Exposure to Second-Hand Smoke: No Diet: regular Diet Comment: regular caffeine: Yes during the past year weight has: remained stable Dental Care, Regularly: Yes Physical Activity Frequency: 5-6 Times per Week Seatbelt Use: always Sunscreen Use: Yes Assistive Devices: None Review of Systems Review of Systems: A 10 point review of system was obtained and unless otherwise stated here or in history of present illness are negative and noncontributory to chief complaint. Physical Exam Physical Exam: In General: In general very pleasant 21-year-old female is alert and oriented x 3 at the time my exam. She only complains of bilateral flank pain. Right worse than left. HEENT: Normocephalic atraumatic pupils are equal round and reactive to light bilaterally. No scleral icterus no conjunctival injection external auditory canals are patent septum is in the midline nose is without discharge oral mucosa is pink and moist without lesion. NECK: Supple no rigidity no lymphadenopathy no thyromegaly no carotid bruits no JVD no masses. HEART: Regular rate and rhythm I do not appreciate any ectopy or rub. No murmur. LUNGS: Clear to auscultation bilaterally and anteriorly with no evidence of adventitious sounds/wheezes rales or rhonchi. ABDOMEN: 38 weeks gestation. Remaining abdominal exam somewhat equivocal due to advanced but appears to be nonacute. EXTREMITIES: Intact, no peripheral cyanosis, clubbing or edema. Strength is 5 out of 5 in extremities x4. NEUROLOGICAL: Cranial nerves II through XII are grossly intact with no focal deficit elicited upon examination. Results & Data Results & Data Vital Signs (Past 12 Hours) Vital Signs Temp Pulse Pulse Resp BP BP Pulse Ox 04/05/24 10:54 102 H 14 136/84 98 04/05/24 10:11 105 H 04/05/24 09:28 36.8 C 104 H 14 126/90 97 O2 Del Method 04/05/24 10:54 Room Air 04/05/24 10:11 04/05/24 09:28 Room Air PG Care Time/CCT Total # of Minutes Spent Total Time Spent with Patient: Total time spent is greater than 50% in coordination of care (as documented) at patient's floor/unit and/or counseling patient: Coding Level of Care Code 99334 IN/OBS CONSULT LVL 4,60M Diagnoses Pyelonephritis N12
[2024-04-05 12:07] LABS: SARS CoV2 RNA(COVID-19) Ceph POSITIVE (Negative)
[2024-04-05 12:08] LABS: Influenza A virus by PCR Negative (Neg); Influenza B virus by PCR Negative (Neg); RSV by PCR Negative (Neg)
[2024-04-05] MEDS: MAGNESIUM OXIDE 400 MG TAB PO SCH (13:08)
[2024-04-05] MEDS: ACETAMINOPHEN 500 MG TAB PO STA (13:08)
[2024-04-05] MEDS: ONDANSETRON INJ 2 MG/ML 2 ML VIAL IV STA (13:08)
[2024-04-05] MEDS: POTASSIUM CHLORIDE / WTR 10 MEQ/100 ML PLCT IV SCH (13:08)
--- NOTE | 2024-04-05 13:15 | Infectious Disease Consult ---
Date of Consultation April 05, 2024 Assessment & Plan (1) Infection of drug-resistant bacteria: (2) 38 weeks gestation of : (3) Pyelonephritis: (4) Term : Plan This is a 23-year-old female 1, para 0, 38 weeks gestation with a past medical history of recurrent ESBL Klebsiella pneumoniae UTIs, recently admitted to [facility] 03/10/24-03/11/24 for sepsis secondary to bilateral pyelonephritis with mild hydronephrosis and C. difficile infection. At that time she was found to have a leukocytosis with a WBC of 26.68 and procalcitonin 36.9. She was started on ertapenem and oral vancomycin. Given her medical complexity she was monitored in the PCU but had ongoing pain and was transferred to [facility] and was followed by Maternal medicine. . There she was evaluated by infectious disease and was discharged on a 14-day course of ertapenem 1 g IV daily as well as a 14-day course of oral vancomycin 125 mg p.o. every 6 hours. She was discharged on 03/14/2024. Since that time she has been evaluated by RETAIL OFFICE MANAGER on 03/21/24, 03/28/24 and 04/03/24. She was doing well and completed her scheduled antibiotics. On 04/05/2024, she presents to the [facility] ED with acute onset left flank pain and low-grade temperatures at home. 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 She has been evaluated by V BELT SKIVER and medicine consult. They reached out to [facility] at [place] regarding need for transferback to a tertiary care center for further evaluation and management. It was recommended that she remain locally for IV antibiotics with plan for induction and delivery. On admission temperature 36.8, pulse 105, RR 16, O2 sats 99% on room air. Labs notable for: WBC 15.07, potassium 3.1, BUN 5, creatinine 0.58, magnesium 1.5, AST 9, ALT 7, alk phos 188, procalcitonin 0.09. Urinalysis with trace blood, 3+ leukocyte esterase,> 50 WBC, 2+ bacteria. COVID testing positive, influenza A negative, influenza B negative, RSV negative. ID consulted for Pyelonephritis in and H/o ESBL infection. She is currently in the ED and received a dose of Meropenem. No Tele-presenter available for live tele-visit at time of consult. E-consult completed via chart review and discussion with medicine and ob team and ID pharm Current microbiology: Blood culture 04/05 pending Urine culture 04/05 pending Prior microbiology: Urine culture 01/10/2024 ESBL Klebsiella pneumoniae (S amox/Clav, ertapenem, Levaquin, meropenem, nitrofurantoin, pip-tazo) Urine culture 01/30/2024 ESBL Klebsiella pneumoniae (S amox/Clav, cefoxitin, ertapenem, Levaquin, meropenem, nitrofurantoin, pip-tazo) Urine culture 02/22/2024 ESBL Klebsiella pneumoniae (S amox-clav, cefoxitin, ertapenem, Levaquin, meropenem, nitrofurantoin, pip-tazo Urine culture 03/09/2024 ESBL Klebsiella pneumoniae(S amox-clav, cefoxitin, ertapenem, Levaquin, meropenem, nitrofurantoin, pip-tazo Blood culture 03/09/202402/10 bottles ESBL Klebsiella pneumoniae Urine culture 03/20/2024 20K Pamela albicans Group B strep vaginal culture 03/21/2024 no group B strep isolated # Complicated UTI/ Possible pyelonephritis in # Recent ESBL Klebsiella pneumoniae sepsis with bacteremia 2/2 Pyelonephritis during 03/09/2024 # History of recurrent ESBL Klebsiella pneumoniae UTI during # History of C diff infection, 03/09/2024 # COVID 19 positive testing, 04/05/2024 Discussion- In the setting of pyuria/bacteriuria, left flank pain, leukocytosis , tachycardia, h/o ESBL infection would start treatment for possible ESBL Klebsiella pyelonephritis. Would start with a broader carbapenem--> meropenem as the patient has had multiple healthcare exposures in the last 2 months. Regarding positive COVID testing, per discussion with team, patient does not seem to have respiratory symptoms. She did report "fever" at home. This may be secondary to a urinary source or COVID. She is not requiring supplemental oxygen. Recommendations Start meropenem 1 g IV every 8 hours. Received a dose of meropenem 500 mg in ED. She is appears to be asymptomatic for Covid 19 per report and on RA. I am unable to questions pt re-symptomatology-->Had "fever" at home. She is , so if symptoms and ok per OB, can consider 3 d of Remdesivir IV (200 mg once then 100 mg IV daily for 2 d) or 5 d of paxlovid 400 mg po q12h. Follow-up urine culture Follow-up blood cultures Awaiting admission per primary team-->. Patient not yet admitted to foster care worker and I am unable to place orders currently. Id pharmacy aware. . Patient history d/w Dr Bryce Cyr prior to chart review . History and recommendations d/w photoengraving retoucher, Dr Cobb. Will place orders once on admitted and due for her next dose of abx/. Thank you for this consult.ID will continue to follow. Oh Plata MD, MPH Infectious Disease [facility], ID Division Call [phone] with questions Consultation Information This patient recommendation is based on a telemedicine consult request which was completed asynchronously through chart review and information provided by the primary physician. The patient was not seen or examined today. The evaluation is consultative in nature and all patient care and treatment decisions can either be accepted or rejected by the patient's primary hospital-based treating physician using their own independent medical judgment for their patient. Surgeon/President contact information: Please call [facility] Call Center . (Phone Number For Physician Use Only) Time Spent Reviewing Chart: 31+ minutes History of Present Illness Reason for Consultation: Pyelonephritis/ Requesting Physician: Dr Bryce Cyr Attending Physician: Dr Tani Cobb History of Present Illness This is a 23-year-old female 1, para 0, 38 weeks gestation with a past medical history of recurrent ESBL Klebsiella pneumoniae UTIs, recently admitted to [facility] 03/10/24-03/11/24 for sepsis secondary to bilateral pyelonephritis with mild hydronephrosis and C. difficile infection. At that time she was found to have a leukocytosis with a WBC of 26.68 and procalcitonin 36.9. She was started on ertapenem and oral vancomycin. Given her medical complexity she was monitored in the PCU but had ongoing pain and was transferred to [facility] and was followed by Maternal medicine. . There she was evaluated by infectious disease and was discharged on a 14-day course of ertapenem 1 g IV daily as well as a 14-day course of oral vancomycin 125 mg p.o. every 6 hours. She was discharged on 03/14/2024. Since that time she has been evaluated by RETAIL OFFICE MANAGER on 03/21/24, 03/28/24 and 04/03/24. She was doing well and completed her scheduled antibiotics. On 04/05/2024, she presents to the [facility] ED with acute onset left flank pain and low-grade temperatures at home. 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 She has been evaluated by V BELT SKIVER and medicine consult. They reached out to [facility] at [place] regarding need for transferback to a tertiary care center for further evaluation and management. It was recommended that she remain locally for IV antibiotics with plan for induction and delivery. On admission temperature 36.8, pulse 105, RR 16, O2 sats 99% on room air. Labs notable for: WBC 15.07, potassium 3.1, BUN 5, creatinine 0.58, magnesium 1.5, AST 9, ALT 7, alk phos 188, procalcitonin 0.09. Urinalysis with trace blood, 3+ leukocyte esterase,> 50 WBC, 2+ bacteria. COVID testing positive, influenza A negative, influenza B negative, RSV negative. ID consulted for Pyelonephritis in and H/o ESBL infection. She is currently in the ED and received a dose of Meropenem. No Tele-presenter available for live tele-visit at time of consult. E-consult completed via chart review and discussion with medicine and ob team and ID pharm Allergies Allergy/AdvReac Type Severity Reaction Status Date / Time Penicillins Allergy Mild RASH Verified 04/04/24 08:12 Home Medications Medication Instructions Recorded Confirmed Type wayqeyem-duu-To-FA 1 mg 1 tab PO DAILY 09/01/23 04/05/24 History tablet acetone (urine) test (Ketone Urine #50 ea 12/08/23 04/04/24 Rx Test strips) blood sugar diagnostic (OneTouch #150 ea 12/08/23 04/04/24 Rx Verio test strips) lancets 33 gauge (OneTouch Delica #150 ea 12/08/23 04/04/24 Rx Plus Lancet) blood-glucose meter (OneTouch #1 ea 01/02/24 04/04/24 Rx Verio Reflect Meter) famotidine 20 mg tablet (Pepcid) 20 mg PO DAILY PRN Heartburn 03/16/24 04/05/24 History folic acid 1 mg tablet 1 mg PO DAILY 03/16/24 04/05/24 History ondansetron 4 mg disintegrating 4 mg PO Q8H 03/16/24 04/05/24 History tablet cephalexin 500 mg capsule 500 mg PO QPM #40 caps 03/21/24 04/05/24 Rx Tylenol 1,000 mg PO DIRECTED PRN Pain 04/05/24 04/05/24 History Patient History Medical History 34 weeks gestation of Lyme disease Surgical History S/P ACL repair Family History Father Hypertension Myocardial infarction Family history of leukocytosis Diabetes Dyslipidemia Grandfather (Paternal) Aneurysm of abdominal aorta Denies family history of Ovarian cancer Prostate cancer Bipolar disorder Colorectal cancer Social History Smoking Status: Never smoker Second Hand Exposure: No; Do You Dip or Chew Tobacco: No; Hx Alcohol Use: No Hx Substance Use: No Preferred Language: Micronesian Communication Ability: Effective Visual Impairment: No Limitations Hearing Ability: Normal Cone Machine Feeder Required: No Beliefs That Will Affect Care: None marital status: Single marital status details: Douglas (22) [phone] Current Living Situation: Parent and Family Current Living Situation Comment: lives with mom and dad, grandmother, 2 cats, gram changing litter current occupational status: employed current occupation: working at [employer] Feels Safe at Home: Yes Childhood Exposure to Second-Hand Smoke: No Diet: regular Diet Comment: regular caffeine: Yes during the past year weight has: remained stable Dental Care, Regularly: Yes Physical Activity Frequency: 5-6 Times per Week Seatbelt Use: always Sunscreen Use: Yes Assistive Devices: None Results & Data Vital Signs (Past 12 Hours) Vital Signs Temp Pulse Pulse Resp BP BP Pulse Ox 04/05/24 12:09 107 H 98 04/05/24 12:09 04/05/24 10:54 102 H 14 136/84 98 04/05/24 10:11 105 H 04/05/24 09:28 36.8 C 104 H 14 126/90 97 O2 Del Method 04/05/24 12:09 04/05/24 12:09 Room Air 04/05/24 10:54 Room Air 04/05/24 10:11 04/05/24 09:28 Room Air Laboratory Results Laboratory Results - last 48 hr 04/05/24 04/05/24 04/05/24 09:20 09:34 09:37 WBC 15.07 H RBC 3.89 L Hgb 11.2 L Hct 32.7 L MCV 84.1 MCH 28.8 MCHC 34.3 RDW Std Deviation 40.6 RDW Coeff of [place] 13.4 Plt Count 353 MPV 9.3 L Immature Gran % (Auto) 1.3 Neut % (Auto) 80.3 Lymph % (Auto) 10.6 Villalba % (Auto) 7.1 Eos % (Auto) 0.3 Baso % (Auto) 0.4 Neut # (Auto) 12.10 H Lymph # (Auto) 1.60 Villalba # (Auto) 1.07 H Eos # (Auto) 0.05 Baso # (Auto) 0.06 Immature Gran # (Auto) 0.19 PT 10.6 INR 1.0 APTT 31 PTT Ratio 1.2 Sodium 134 L Potassium 3.1 L Chloride 105 Carbon Dioxide 19 L Anion Gap 10 BUN 5 L Creatinine 0.58 L Est Cr Clr Drug Dosing 155.8 eGFR 129.52 BUN/Creatinine Ratio 8.6 L Glucose 115 H Lactate 1.1 Calcium 8.9 Magnesium 1.5 L Total Bilirubin 0.7 AST 9 L ALT 7 Alkaline Phosphatase 188 H Troponin I High Sens 3.7 Total Protein 7.0 Albumin 3.8 Globulin 3.2 Albumin/Globulin Ratio 1.2 Procalcitonin 0.09 Urine Color Yellow Urine Appearance Cloudy A Urine pH 6.5 Ur Specific [place] 1.012 Urine Protein Trace H Urine Glucose (UA) Negative Urine Ketones Negative Urine Blood Trace H Urine Nitrite Negative Urine Bilirubin Negative Urine Urobilinogen Negative Ur Leukocyte Esterase 3+ H Urine WBC (Auto) >50 H Urine RBC (Auto) 0-2 U Hyaline Cast (Auto) 0-2 U Epithel Cells (Auto) 3-5 H Urine Bacteria (Auto) 2+ H SARS-CoV-2 (PCR) Influenza Type A (PCR) Influenza Type B (PCR) RSV (RT-PCR) Blood Type Antibody Screen 04/05/24 04/05/24 10:02 11:53 WBC RBC Hgb Hct MCV MCH MCHC RDW Std Deviation RDW Coeff of [place] Plt Count MPV Immature Gran % (Auto) Neut % (Auto) Lymph % (Auto) [place] % (Auto) Eos % (Auto) Baso % (Auto) Neut # (Auto) Lymph # (Auto) [place] # (Auto) Eos # (Auto) Baso # (Auto) Immature Gran # (Auto) PT INR APTT PTT Ratio Sodium Potassium Chloride Carbon Dioxide Anion Gap BUN Creatinine Est Cr Clr Drug Dosing eGFR BUN/Creatinine Ratio Glucose Lactate Calcium Magnesium Total Bilirubin AST ALT Alkaline Phosphatase Troponin I High Sens Total Protein Albumin Globulin Albumin/Globulin Ratio Procalcitonin Urine Color Urine Appearance Urine pH Ur Specific [place] Urine Protein Urine Glucose (UA) Urine Ketones Urine Blood Urine Nitrite Urine Bilirubin Urine Urobilinogen Ur Leukocyte Esterase Urine WBC (Auto) Urine RBC (Auto) U Hyaline Cast (Auto) U Epithel Cells (Auto) Urine Bacteria (Auto) SARS-CoV-2 (PCR) POSITIVE A Influenza Type A (PCR) Negative Influenza Type B (PCR) Negative RSV (RT-PCR) Negative Blood Type O Positive Antibody Screen NEGATIVE Diagnostic Findings No recent imaging Medications Administered Home Medications Medication Instructions Recorded Confirmed Last Taken ngnqavxv-dwa-Tr-FA 1 mg 1 tab PO DAILY 09/01/23 04/05/24 03/08/24 08:00 tablet acetone (urine) test (Ketone Urine #50 ea 12/08/23 04/04/24 Unknown Test strips) blood sugar diagnostic (OneTouch #150 ea 12/08/23 04/04/24 Unknown Verio test strips) lancets 33 gauge (OneTouch Delica #150 ea 12/08/23 04/04/24 Unknown Plus Lancet) blood-glucose meter (OneTouch #1 ea 01/02/24 04/04/24 Unknown Verio Reflect Meter) famotidine 20 mg tablet (Pepcid) 20 mg PO DAILY PRN Heartburn 03/16/24 04/05/24 Unknown folic acid 1 mg tablet 1 mg PO DAILY 03/16/24 04/05/24 Unknown ondansetron 4 mg disintegrating 4 mg PO Q8H 03/16/24 04/05/24 Unknown tablet cephalexin 500 mg capsule 500 mg PO QPM #40 caps 03/21/24 04/05/24 Unknown Tylenol 1 tab PO DIRECTED PRN Pain 04/05/24 04/05/24 Unknown Active Medications Generic Name Dose Route Start Last Admin Trade Name Piotr PRN Reason Stop Dose Admin Potassium Chloride 10 meq in 100 mls @ 100 mls/hr 04/05/24 12:15 04/05/24 13:08 K Porfirio / Wtr IV 04/05/24 15:14 100 mls/hr Q1H DOROTHEA Administration Magnesium Oxide 400 mg 04/05/24 12:15 04/05/24 13:08 Magnesium Oxide 400 Mg Tab PO 04/05/24 21:01 400 mg BID DOROTHEA Administration
[2024-04-05] MEDS: POTASSIUM CHLORIDE CRTAB 20 MEQ TABCR PO STA (13:19)
[2024-04-05] MEDS: POTASSIUM CHLORIDE 20 MEQ/15 ML UDC PO STA (14:27)
--- NOTE | 2024-04-05 15:15 | Ultrasound Report ---
RENAL ULTRASOUND HISTORY: Acute bilateral flank pain ? pyelo COMPARISON: 03/09/2024 FINDINGS: Right kidney: 12.3 x 6.3 x 6.6 cm. Mild hydronephrosis is similar to prior. There is suggestion of ur othelial thickening. Nonobstructing calculi measure up to 4 mm. No perinephric fluid collections. Nor mal corticomedullary differentiation and cortical thickness. Left kidney: 12.2 x 6.2 x 5.9 cm. Mild hydronephrosis similar to prior. Nonobstructing calculi measur e up to 4 mm. There is suggestion of urothelial thickening. No perinephric fluid collections. Normal corticomedullary differentiation and cortical thickness. Bladder: Partial distention is not well-visualized secondary to mass effect from the intrauterine fet us. IMPRESSION: 1. Mild bilateral hydronephrosis with possible urothelial thickening. Correlate with urinalysis to ex clude infection. 2. Nonobstructing bilateral nephrolithiasis. 3. Decompressed urinary bladder is not well-visualized, likely compressed from the intrauterine fetus . ACT 112: Negative or not required by law. Electronically signed by: Tani Rice M.D. 04/05/2024 3:13 PM
[2024-04-05] MEDS ORDERED: LIDOCAINE 1% LOCAL 20 ML VIAL INFIL PRN (16:01)
[2024-04-05] MEDS ORDERED: OXYTOCIN 30 UNITS/NSS 30 UNITS/500 ML BAG IV PRN (16:01)
[2024-04-05] MEDS ORDERED: CALCIUM CARBONATE 500 MG CHEWABLE TAB PO PRN (16:19)
[2024-04-05] MEDS: oxyCODONE HCL IR 5 MG TAB (IMMEDIATE RELEASE) PO STA (17:51)
[2024-04-05] MEDS: MEROPENEM 1,000 MG in SYRINGE 0 ML IV SCH (18:03)
--- NOTE | 2024-04-05 20:26 | Labor Progress Brief Note ---
Date of Service April 05, 2024 Subjective Presented to bedside to discuss induction plan. Patient has been febrile since presentation to the ED. Noting improved symptoms. Discussed option for Paxlovid for COVID positive finding. Patient notes a mild cough but denies any other COVID related symptoms. Declined starting at present and will let me know if she is willing to proceed with the medication. Assessment & Plan (1) 38 weeks gestation of : Plan: Rae is a 23-year-old G1, P0 currently at 38 weeks 1 day gestational age admitted for recurrent multidrug-resistant pyelonephritis as detailed per prior notes. [facility] recommended induction of labor after she had been afebrile for at least 12 hours. Will be 12 hours around 9 PM and presented to discuss induction plan. Patient was noted be 3 cm dilated 75% effaced -2 station on exam. Discussed starting oxytocin per regular protocol. Will proceed with rupture of membranes when appropriate. GBS negative. Continue pyelonephritis treatment p er infectious disease internal medicine recommendations. Declining Paxlovid at this time. (2) Pyelonephritis complicating in third trimester: (3) Supervision of normal intrauterine in primigravida: Trimester: third trimester Qualified Code(s): Z34.03 - Encounter for supervision of normal first , third trimester Admission and Anticipated Discharge Date Admission Date: April 05, 2024 Physical Exam Genitourinary: normal external appearance Manual OB Exam: + cervical dilation 3 cm, + cervical effacement 70% and + station -2 OB Exam Monitor Tracing: + external FHT monitor used, + external uterine monitor used, + category I and + normal FHT variability Results & Data Vital Signs (Past 12 Hours) Vital Signs Temp Pulse Pulse Resp BP BP Pulse Ox 04/05/24 19:16 36.8 C 103 H 18 129/74 04/05/24 19:10 04/05/24 18:30 18 04/05/24 18:30 18 04/05/24 18:00 20 04/05/24 18:00 20 04/05/24 16:30 18 04/05/24 16:30 18 04/05/24 16:19 36.6 C 20 04/05/24 16:13 99 H 120/76 04/05/24 14:00 104 H 17 112/76 96 04/05/24 13:30 110 H 15 04/05/24 13:00 105 H 16 127/85 04/05/24 12:33 104 H 16 99 04/05/24 12:09 107 H 98 04/05/24 12:09 04/05/24 12:00 99 H 19 99 04/05/24 11:03 104 H 17 139/96 100 04/05/24 10:54 102 H 14 136/84 98 04/05/24 10:11 105 H 04/05/24 09:28 36.8 C 104 H 14 126/90 97 O2 Del Method 04/05/24 19:16 04/05/24 19:10 Room Air 04/05/24 18:30 04/05/24 18:30 04/05/24 18:00 04/05/24 18:00 04/05/24 16:30 04/05/24 16:30 04/05/24 16:19 04/05/24 16:13 04/05/24 14:00 04/05/24 13:30 04/05/24 13:00 04/05/24 12:33 04/05/24 12:09 04/05/24 12:09 Room Air 04/05/24 12:00 04/05/24 11:03 04/05/24 10:54 Room Air 04/05/24 10:11 04/05/24 09:28 Room Air Coding Level of Care Code None Diagnoses 38 weeks gestation of Z3A.38 Pyelonephritis complicating in third trimester O23.03 Encounter for supervision of normal first in third trimester Z34.03 Trimester: third trimester
[2024-04-05] MEDS: ACETAMINOPHEN 500 MG TAB PO PRN (20:52)
[2024-04-05] MEDS: LACTATED RINGER'S 1,000 ML IV PRN (20:54)
--- NOTE | 2024-04-05 22:02 | Electrocardiogram Report ---
Test Reason : Blood Pressure : */* mmHG Vent. Rate : 99 BPM Atrial Rate : 99 BPM P-R Int : 118 ms QRS Dur : 82 ms QT Int : 358 ms P-R-T Axes : 34 36 5 degrees QTcB Int : 459 ms Normal sinus rhythm Normal ECG When compared with ECG of 09-Mar-2024 04:54, No significant change was found Confirmed by Juan Ramon Johnston ([id number]) on 04/05/2024 10:01:54 PM Referred By: REFERRED SELF Confirmed By: Juan Ramon Johnston
[2024-04-05] MEDS: OXYTOCIN 30 UNITS/NSS 30 UNITS/500 ML BAG IV PRN (22:06)
--- NOTE | 2024-04-06 01:37 | Anesthesiology Consultation ---
Date of Service April 06, 2024 Assessment & Plan (1) Encounter for pre-operative examination: Chart Review Chart Review: Acceptable Risk for Labor Epidural History Height/Weight Height: 5 ft 6 in Weight: 81.193 kg Allergies Allergy/AdvReac Type Severity Reaction Status Date / Time Penicillins Allergy Mild RASH Verified 04/04/24 08:12 Medications Home Medications Medication Instructions Recorded Confirmed Last Taken ygujutnb-agl-Wo-FA 1 mg 1 tab PO DAILY 09/01/23 04/05/24 04/04/24 tablet acetone (urine) test (Ketone Urine #50 ea 12/08/23 04/04/24 Unknown Test strips) blood sugar diagnostic (OneTouch #150 ea 12/08/23 04/04/24 Unknown Verio test strips) lancets 33 gauge (OneTouch Delica #150 ea 12/08/23 04/04/24 Unknown Plus Lancet) blood-glucose meter (OneTouch #1 ea 01/02/24 04/04/24 Unknown Verio Reflect Meter) famotidine 20 mg tablet (Pepcid) 20 mg PO DAILY PRN Heartburn 03/16/24 04/05/24 Unknown folic acid 1 mg tablet 1 mg PO DAILY 03/16/24 04/05/24 Unknown ondansetron 4 mg disintegrating 4 mg PO Q8H 03/16/24 04/05/24 04/05/24 tablet cephalexin 500 mg capsule 500 mg PO QPM #40 caps 03/21/24 04/05/24 04/05/24 Tylenol 1,000 mg PO DIRECTED PRN Pain 04/05/24 04/05/24 04/05/24 0700 Active Medications Generic Name Dose Route Start Last Admin Trade Name Freq PRN Reason Stop Dose Admin Acetaminophen 1,000 mg 04/05/24 16:19 04/05/24 20:52 Acetaminophen 500 Mg Tab PO 05/05/24 16:18 1,000 mg Q8H PRN Administration Pain Lactated Ringer's 1,000 mls @ 125 mls/hr 04/05/24 16:01 04/06/24 01:27 Lr IV 04/06/24 16:00 999 mls/hr .Q8H PRN Administration L&D Protocol Protocol Meropenem 1,000 mg/ Syringe 20 mls @ 2 mls/min 04/05/24 17:00 04/06/24 00:47 IV 04/12/24 16:59 2 mls/min Q8H DOROTHEA Administration Protocol Oxytocin 30 units in 500 mls @ 10 mls/hr 04/05/24 20:03 04/06/24 00:50 Pitocin 30 Units/Nss IV 04/07/24 20:02 0.6 units/hr .Q24H PRN 10 mls/hr Labor Induction/Augmentation Titration Protocol 0.6 UNITS/HR Past Medical History Medical History (Updated 04/06/24 @ 01:35 by Alvaro Head MD) Anemia Pyelonephritis Gestational diabetes Lyme disease AT AGE 9. Repeat titers in Feb 2019 negative on western blot. Past Family History Family History Father Hypertension Myocardial infarction Family history of leukocytosis Diabetes Dyslipidemia Grandfather (Paternal) Aneurysm of abdominal aorta Denies family history of Ovarian cancer Prostate cancer Bipolar disorder Colorectal cancer Past Surgical History Surgical History S/P ACL repair Social History Smoking Status: Never smoker Do You Dip or Chew Tobacco: No Hx Alcohol Use: No Hx Substance Use: No substance use type: does not use Physical Exam Vital Signs Last Vital Signs Temp 36.5 C 04/06/24 00:52 Pulse 106 H 04/06/24 01:31 Resp 18 04/06/24 00:52 BP 158/86 H 04/06/24 01:31 Pulse Ox 96 04/05/24 14:00 O2 Del Method Room Air 04/05/24 19:10 Testing Laboratory Results 04/05/24 09:20 04/05/24 09:20 PT 10.6 Seconds (9.0-12.0) 04/05/24 09:20 INR 1.0 (0.9-1.1) 04/05/24 09:20 APTT 31 Seconds (21-31) 04/05/24 09:20 Urine Color Yellow 04/05/24 09:34 Urine Appearance Cloudy (Clear) A 04/05/24 09:34 Urine pH 6.5 (4.5-7.5) 04/05/24 09:34 Ur Specific [place] 1.012 (1.000-1.030) 04/05/24 09:34 Urine Protein Trace (Negative) H 04/05/24 09:34 Urine Glucose (UA) Negative (Negative) 04/05/24 09:34 Urine Ketones Negative (Negative) 04/05/24 09:34 Urine Nitrite Negative (Negative) 04/05/24 09:34 Ur Leukocyte Esterase 3+ (Negative) H 04/05/24 09:34 Urine WBC (Auto) >50 /hpf (0-5) H 04/05/24 09:34 Urine RBC (Auto) 0-2 /hpf (0-2) 04/05/24 09:34 U Hyaline Cast (Auto) 0-2 /lpf (0-2) 04/05/24 09:34 U Epithel Cells (Auto) 3-5 /hpf (0-2) H 04/05/24 09:34 Urine Bacteria (Auto) 2+ (None Seen) H 04/05/24 09:34 Blood Type O Positive 04/05/24 11:53 Antibody Screen NEGATIVE 04/05/24 11:53 04/05/24 19:07 POC Glucose 111 H Laboratory Tests 04/05/24 10:02 SARS-CoV-2 (PCR) POSITIVE A
[2024-04-06] MEDS: ONDANSETRON INJ 2 MG/ML 2 ML VIAL IV PRN ×2 (01:47→21:47)
[2024-04-06] MEDS: BUPIVACAINE 0.25% PF 30 ML VIAL ONE (02:05)
[2024-04-06] MEDS: fentaNYL citrate PF 100 MCG/2 ML VIAL ONE (02:06)
[2024-04-06] MEDS: LIDOCAINE 2%/EPINEPHRINE 1:200,000 20 ML PF ONE (02:07)
[2024-04-06] MEDS ORDERED: LIDOCAINE 2% MPF LOCAL 5 ML VIAL EPI PRN (02:08)
[2024-04-06] MEDS ORDERED: fentANYL 2 MCG/ML BUPIVacaine 0.125%-NSS 100ML BAG EPI PRN (02:08)
[2024-04-06] MEDS ORDERED: NALOXONE HCL 0.4 MG/1 ML VIAL/CARP IV PRN ×2 (02:08→13:39)
[2024-04-06] MEDS ORDERED: fentaNYL citrate PF 100 MCG/2 ML VIAL EPI PRN (02:08)
[2024-04-06] MEDS: fentANYL 2 MCG/ML BUPIVacaine 0.125%-NSS 100ML BAG ONE (02:08)
[2024-04-06] MEDS ORDERED: BUPIVACAINE 0.25% PF 30 ML VIAL EPI PRN (02:08)
[2024-04-06] MEDS ORDERED: ePHEDrine sulfate 50 MG/ML AMP IV PRN ×2 (02:08→13:39)
[2024-04-06] MEDS ORDERED: SODIUM CHLORIDE 0.9% PF INJ 10 ML VIAL EPI PRN (02:08)
[2024-04-06] MEDS ORDERED: ROPIVACAINE 0.5% PF 5 MG/ML 20 ML VIAL EPI PRN (02:08)
[2024-04-06] MEDS ORDERED: NALOXONE HCL 1 MG in SODIUM CHLORIDE 0.9% 1,000 ML IV PRN ×2 (02:08→13:39)
[2024-04-06] MEDS: SODIUM CHLORIDE 0.9% PF INJ 10 ML VIAL ONE (02:23)
--- NOTE | 2024-04-06 03:27 | Labor Progress Brief Note ---
Date of Service April 06, 2024 Subjective Reason For Note: Monitor Concern Presented for a placement IUPC due to difficulty establishing contractions with occasional suspected variable decelerations noted. Assessment & Plan (1) Pyelonephritis complicating in third trimester: (2) 38 weeks gestation of : (3) Supervision of normal intrauterine in primigravida: Trimester: third trimester Qualified Code(s): Z34.03 - Encounter for supervision of normal first , third trimester Plan Rae is a 23-year-old currently 38 weeks 2 days gestational age presents for induction of labor with pyelonephritis and COVID as detailed per prior notes. Progressing in labor well. Category 1 at times questionable category 2 although deceleration type not able to be determined as not able to warp picker contractions. IUPC placed for better evaluation. Will continue to monitor and adjust care as needed. Remains afebrile with mild tachycardia. tachycardia also noted suspected due to COVID and pyelonephritis diagnoses with moderate variability and accelerations noted Admission and Anticipated Discharge Date Admission Date: April 05, 2024 Physical Exam Genitourinary: Manual OB Exam: + cervical dilation (5.5), + cervical effacement 80%, + station -1 and + amniotic fluid meconium OB Exam Monitor Tracing: + external FHT monitor used, + category I, + category II, + normal FHT variability, + early decelerations present (?) and + variable decelerations (?) IUPC placed Results & Data Vital Signs (Past 12 Hours) Vital Signs Temp Pulse Resp BP Pulse Ox O2 Del Method 04/06/24 03:25 99 H 109/62 04/06/24 03:21 98 H 100 04/06/24 03:16 107 H 100 04/06/24 03:10 93 H 100 04/06/24 03:09 96 H 119/73 04/06/24 03:05 94 H 100 04/06/24 03:01 16 04/06/24 03:01 37.0 C 16 04/06/24 03:00 97 H 100 04/06/24 02:55 95 H 100 04/06/24 02:54 96 H 118/76 04/06/24 02:50 101 H 100 04/06/24 02:45 103 H 100 04/06/24 02:40 105 H 100 04/06/24 02:35 105 H 100 04/06/24 02:33 104 H 129/64 04/06/24 02:30 100 H 16 100 04/06/24 02:28 108 H 126/59 L 04/06/24 02:25 111 H 100 04/06/24 02:23 107 H 126/71 04/06/24 02:20 111 H 100 04/06/24 02:19 108 H 124/66 04/06/24 02:15 111 H 100 04/06/24 02:13 100 H 127/76 04/06/24 02:11 103 H 129/77 04/06/24 02:10 110 H 99 04/06/24 02:09 120 H 128/78 04/06/24 02:07 102 H 130/79 04/06/24 02:05 99 04/06/24 02:05 96 H 04/06/24 02:05 92 H 133/81 04/06/24 02:03 100 H 133/80 04/06/24 02:00 110 H 100 04/06/24 01:55 113 H 100 04/06/24 01:54 113 H 143/85 H 04/06/24 01:50 102 H 100 04/06/24 01:45 105 H 100 04/06/24 01:35 104 H 100 04/06/24 01:33 36.8 C 04/06/24 01:31 106 H 158/86 H 04/06/24 00:52 18 04/06/24 00:52 36.5 C 18 04/06/24 00:18 88 113/65 04/05/24 23:18 94 H 114/64 04/05/24 22:08 101 H 118/68 04/05/24 21:57 18 04/05/24 21:57 36.8 C 18 04/05/24 20:40 37.5 C 04/05/24 19:16 36.8 C 103 H 18 129/74 04/05/24 19:10 Room Air 04/05/24 18:30 18 04/05/24 18:30 18 04/05/24 18:00 20 04/05/24 18:00 20 04/05/24 16:30 18 04/05/24 16:30 18 04/05/24 16:19 36.6 C 20 04/05/24 16:13 99 H 120/76 Coding Level of Care Code None Diagnoses Pyelonephritis complicating in third trimester O23.03 38 weeks gestation of Z3A.38 Encounter for supervision of normal first in third trimester Z34.03 Trimester: third trimester
[2024-04-06] MEDS: ePHEDrine sulfate 50 MG/ML AMP ONE (04:09)
[2024-04-06 06:33] LABS: Basophils # (auto) 0.04 K/uL (0.00-0.20); Basophils % (auto) 0.3 %; Eosinophils # (auto) 0.04 K/uL (0.00-0.50); Eosinophils % (auto) 0.3 %; Hematocrit (blood only) 29.6 % (37.0-47.0); Hemoglobin 10.2 g/dl (12.0-16.0); Immature Granulocytes % (auto) 1.5 %; Lymphocytes # (auto) 1.19 K/uL (1.20-3.40); Lymphocytes % (auto) 8.9 %; Mean Corpuscular Hgb Conc 34.5 g/dL (32.0-36.0); Mean Corpuscular Volume 84.1 fL (80.0-100.0); Mean Platelet Volume 9.2 fL (9.4-12.4); Neutrophils # (auto) 11.07 K/uL (1.40-6.50); Platelet Count 316 K/uL (130-400); RDW Coefficient of Variation 13.7 % (11.5-14.5); RDW Standard Deviation 41.6 fL (36.4-46.3); Red Blood Count 3.52 M/uL (4.20-5.40); White Blood Count 13.34 K/ul (4.8-10.8)
[2024-04-06 07:00] LABS: BUN Creatinine Ratio 5.9 (10-20); Bilirubin,Total 0.6 mg/dl (0.2-1.0); Calcium 7.8 mg/dl (8.6-10.3); Chol HDL Ratio 3.4 (0-5); Creatinine Clr Calc Pharmacy 182.7 ml/min; Magnesium 1.4 mg/dl (1.7-2.4); Potassium 3.3 mmol/L (3.5-5.1)
[2024-04-06] MEDS: ACETAMINOPHEN 1,000 MG/100 ML VIAL IV STA (08:07)
[2024-04-06] MEDS ORDERED: ceFAZolin 2000MG 2,000 MG/15 ML SYR IV ONE ×2 (11:06→11:15)
[2024-04-06] MEDS: CITRIC ACID/SODIUM CITRATE 15 ML UDC ONE (11:13)
[2024-04-06] MEDS ORDERED: LIDOCAINE 2%/EPINEPHRINE 1:200,000 20 ML PF ONE ×2 (11:32→16:21)
[2024-04-06] MEDS ORDERED: fentaNYL citrate PF 100 MCG/2 ML VIAL ONE (11:51)
[2024-04-06] MEDS ORDERED: PROPOFOL IV EMULSION 10 MG/ML 20 ML VIAL IV ONE (12:02)
[2024-04-06] MEDS ORDERED: SUCCINYLCHOLINE 100MG/5ML SYR IV ONE (12:02)
[2024-04-06] MEDS ORDERED: MAGNESIUM HYDROXIDE SUSP 30 ML UDC PO PRN (12:34)
[2024-04-06] MEDS ORDERED: HYDROmorphone INJ 0.5 MG/0.5 ML SYR IV PRN ×2 (12:34→13:39)
[2024-04-06] MEDS ORDERED: ONDANSETRON INJ 2 MG/ML 2 ML VIAL IV PRN ×2 (12:34→13:39)
[2024-04-06] MEDS ORDERED: CALCIUM CARBONATE 500 MG CHEWABLE TAB PO PRN (12:34)
[2024-04-06] MEDS ORDERED: HYDROCORTISONE ACETATE 25 MG SUPP PR PRN (12:34)
[2024-04-06] MEDS ORDERED: SENNA 8.6 MG TAB PO PRN (12:34)
[2024-04-06] MEDS ORDERED: diphenhydrAMINE 50 MG/ML VIAL IV PRN ×2 (12:34→13:39)
[2024-04-06] MEDS ORDERED: PROMETHAZINE 12.5 MG/50.5 ML BAG IV PRN (12:34)
[2024-04-06] MEDS ORDERED: diphenhydrAMINE Capsule 25 MG CAP PO PRN (12:34)
[2024-04-06] MEDS ORDERED: oxyCODONE HCL IR 5 MG TAB (IMMEDIATE RELEASE) PO PRN ×2 (12:34→13:39)
--- NOTE | 2024-04-06 12:42 | Post Operative Brief Note ---
Immediate Post Op Note Date of Surgery April 06, 2024 Pre & Post Diagnosis Operation Date: 04/06/24 11:20 <No data on this case meets the specified criteria> Pre-Op Dx: Failure to descend at 38 weeks failed vacuum attempt Post-op Dx: same plus delivery of viable male infant I identified the patient and participated in the time-out.: Yes Procedure Operation Date: 04/06/24 11:20 <No data on this case meets the specified criteria> primary low transverse section Surgeon Ronel Calderon MD, FACOG Contract Manager Kateryna Perry MD Quantitative Blood Loss (QBL) 500 Findings Consistent with Post-Op Diagnosis gravid uterus tubes and ovaries are normal Specimens Specimen Description: placenta Drains Villareal Catheter Anesthesia Type General Complications none Disposition Accompanied Patient To Recovery: Yes Disposition: L&D
[2024-04-06] MEDS ORDERED: LACTATED RINGER'S 1,000 ML IV SCH (12:45)
[2024-04-06] MEDS ORDERED: MoRPHine SULFATE PF 1 MG/ML 10 ML AMP/VIAL ONE (12:56)
--- NOTE | 2024-04-06 13:14 | Operative Report ---
Post Operative Report Pre & Post Diagnosis Operation Date: 04/06/24 11:20 Preop diagnosis: Intrauterine at 38 weeks and 3 days Recurrent pyelonephritis in Arrest of descent with failed vacuum attempt Postop diagnosis: Same plus delivery of a viable male infant. I identified the patient and participated in the time-out.: Yes Procedure Operation Date: 04/06/24 11:20 Primary low-transverse section Surgeon Ronel Calderon MD, FACOG Busser Kateryna Perry MD Quantitative Blood Loss (QBL) 500 Findings Consistent with Post-Op Diagnosis Specimens Placenta sent for exam Drains Villareal catheter to straight drainage, pink-tinged urine at the end of the case. Anesthesia Type General Complications none Disposition Accompanied Patient To Recovery: Yes Disposition: L&D Indications Patient is a 23 old G1, P0 female EDC of 04/18/2024 who was admitted for recurrent bout of pyelonephritis. She had admitted the beginning of the month and had to be transferred to [facility] because of sepsis. MFM at [facility] recommended induction at this time when she was afebrile for at least 12 hours. She progressed to full dilation and pushed for almost 3 hours. Because of maternal exhaustion, a vacuum attempt was done through 3 contractions with no pop offs. There was no descent with the vacuum assistance. At this point we progressed to low transverse cervical section Description of Procedure After it was determined that her epidural anesthetic was not going to be effective for the section, she had general endotracheal anesthesia. This was initiated after she had been prepped and draped. A low transverse skin incision was made with a scalpel and carried to the fascia with the same scalpel. The fascial incision was then extended with Ayala scissors. The edges were then grasped with Tiarra clamps and the underlying rectus muscle was bluntly sharply dissected off the overlying fascia. The rectus muscle were bluntly developed in the midline and the underlying peritoneum elevated and entered bluntly the bladder was then taken down off the anterior surface of the uterus with Metzenbaum scissors. This placed behind the bladder blade. The lower uterine segment was entered with a scalpel and the incision extended transversely by stretching the incision in a cephalad and caudad direction. With help from elevation of the head vaginally, the was brought to the incision after rest the tubing from occiput anterior to the transverse and finally to occiput posterior presentation. The rest of the delivered with ease and moderate fundal pressure. He was vigorous crying and moving all 4 limbs upon delivery. Cord was clamped and cut and a portion of cord was sent for blood gases. After cord blood was obtained, the placenta was manually removed. The uterus was then exteriorized and covered with a clean lap sponge. bleeding was controlled with dilute Pitocin and fundal massage. Uterine cavity was explored found free of any placental tissue or membranes. The uterus was then closed in a running imbricating fashion in 2 layers with 0 Monocryl. Hemostasis noted to be excellent. The posterior cul-de-sac was suctioned for small amount of bloody fluid. The uterus was then placed back inside the abdominal cavity. The uterine incision was examined once more and continue to have excellent hemostasis. The gutters were cleared of some clot and fluid. The rectus muscles were then brought together on the midline with individual stitches of Monocryl. The fascia was reapproximated in a running fashion with 0 Vicryl. After irrigating the subcutaneous layer, the skin edges were reapproximated in subcuticular fashion with 4-0 Vicryl. Urine was bloody initially at the start of the case and is now cleared upon arrival in labor and delivery. I attest to the content of the Intraoperative Record and any orders documented therein. Any exceptions are noted below.
[2024-04-06] MEDS: AZITHROMYCIN 500 MG/255 ML BAG IV SCH (13:15)
--- NOTE | 2024-04-06 13:25 | Anesthesia Procedure Note ---
Date of Service April 06, 2024 Anesthesia Post Epidural Note Vital Signs Vital Signs: Temp Pulse Resp BP Pulse Ox O2 Del Method 36.8 C 112 H 24 124/74 100 Room Air 04/06/24 11:16 04/06/24 13:20 04/06/24 10:03 04/06/24 13:16 04/06/24 13:20 04/05/24 19:10 Pain Intensity Bilateral Back: Pain Intensity: 6 Bilateral Abdomen: Pain Intensity: 6 Notes Mental Status: alert / awake / arousable Nausea / Vomiting: adequately controlled Pain: adequately controlled Airway Patency, RR, SpO2: stable & adequate BP & HR: stable & adequate Hydration State: stable & adequate Neuraxial Anesthesia: was administered and sensory block is resolving Anesthetic Complications: no major complications apparent and Pt Satisfied with anesthetic care Epidural: Removed without complications and With tip intact
--- NOTE | 2024-04-06 13:26 | Anesthesiology Progress Note ---
Date of Service April 06, 2024 Anesthesia Post Procedure Vital Signs Vital Signs: Temp Pulse Resp BP Pulse Ox O2 Del Method 04/06/24 13:20 112 H 100 04/06/24 13:16 125 H 124/74 04/06/24 13:15 128 H 96 04/06/24 13:10 119 H 96 04/06/24 13:06 117 H 130/74 04/06/24 13:05 119 H 96 04/06/24 13:00 122 H 98 04/06/24 12:56 122 H 115/70 04/06/24 12:55 129 H 95 04/06/24 11:16 36.8 C 04/06/24 11:15 104 H 99 04/06/24 11:10 103 H 99 04/06/24 11:09 111 H 132/92 04/06/24 11:05 104 H 99 04/06/24 11:01 100 H 91 04/06/24 11:00 97 H 98 04/06/24 10:55 113 H 82 L 04/06/24 10:54 107 H 123/82 04/06/24 10:50 105 H 99 04/06/24 10:45 104 H 98 04/06/24 10:40 120 H 98 04/06/24 10:35 112 H 98 04/06/24 10:30 107 H 98 04/06/24 10:26 120 H 90 04/06/24 10:25 103 H 97 04/06/24 10:17 104 H 97 04/06/24 10:12 104 H 98 04/06/24 10:10 104 H 92 04/06/24 10:09 103 H 127/76 04/06/24 10:07 93 H 97 04/06/24 10:03 24 04/06/24 10:03 37.0 C 24 04/06/24 10:02 113 H 90 04/06/24 10:01 118 H 97 04/06/24 09:57 25 H 04/06/24 09:57 25 H 04/06/24 09:56 118 H 98 04/06/24 09:54 92 04/06/24 09:54 110 H 04/06/24 09:54 109 H 129/75 04/06/24 09:51 120 H 97 04/06/24 09:46 101 H 98 04/06/24 09:41 114 H 97 04/06/24 09:38 108 H 90 04/06/24 09:36 115 H 96 04/06/24 09:31 122 H 97 04/06/24 09:26 105 H 97 04/06/24 09:24 99 H 129/71 04/06/24 09:21 110 H 96 04/06/24 09:19 109 H 89 L 04/06/24 09:16 92 H 97 04/06/24 09:11 104 H 97 04/06/24 09:10 37.4 C 04/06/24 09:06 134 H 94 04/06/24 09:01 100 H 97 04/06/24 08:56 141 H 91 04/06/24 08:51 119 H 95 04/06/24 08:49 112 H 94 04/06/24 08:46 114 H 97 04/06/24 08:45 36.8 C 04/06/24 08:41 122 H 96 04/06/24 08:38 110 H 122/63 04/06/24 08:36 106 H 97 04/06/24 08:31 115 H 97 04/06/24 08:29 114 H 91 04/06/24 08:26 109 H 97 04/06/24 08:24 109 H 126/69 04/06/24 08:21 106 H 98 04/06/24 08:16 104 H 99 04/06/24 08:13 114 H 90 04/06/24 08:11 113 H 100 04/06/24 08:09 102 H 129/73 04/06/24 08:06 107 H 99 04/06/24 08:01 108 H 98 04/06/24 07:56 111 H 99 04/06/24 07:54 106 H 130/81 04/06/24 07:51 38.1 C H 107 H 100 04/06/24 07:46 104 H 99 04/06/24 07:41 110 H 100 04/06/24 07:40 105 H 138/79 04/06/24 07:36 104 H 99 04/06/24 07:31 108 H 100 04/06/24 07:26 111 H 100 04/06/24 07:25 106 H 138/80 04/06/24 07:23 36.8 C 04/06/24 07:21 101 H 100 04/06/24 07:16 89 100 04/06/24 07:11 100 H 100 04/06/24 07:09 96 H 116/67 04/06/24 07:06 96 H 100 04/06/24 07:01 89 100 04/06/24 06:56 102 H 100 04/06/24 06:54 90 133/77 04/06/24 06:51 103 H 100 04/06/24 06:46 93 H 100 04/06/24 06:41 99 H 100 04/06/24 06:39 98 H 130/79 04/06/24 06:36 101 H 100 04/06/24 06:31 107 H 100 04/06/24 06:30 18 04/06/24 06:30 37.0 C 18 04/06/24 06:26 103 H 100 04/06/24 06:23 108 H 125/79 04/06/24 06:21 107 H 100 04/06/24 06:16 104 H 100 04/06/24 06:11 105 H 100 04/06/24 06:09 103 H 117/73 04/06/24 06:06 101 H 100 04/06/24 06:01 107 H 98 04/06/24 05:56 109 H 98 04/06/24 05:54 110 H 124/77 04/06/24 05:51 115 H 98 04/06/24 05:46 115 H 98 04/06/24 05:41 122 H 98 04/06/24 05:39 116 H 128/76 04/06/24 05:36 119 H 98 04/06/24 05:31 123 H 98 04/06/24 05:30 16 04/06/24 05:30 16 04/06/24 05:26 114 H 97 04/06/24 05:23 111 H 122/66 04/06/24 05:21 109 H 97 04/06/24 05:16 112 H 97 04/06/24 05:11 107 H 97 04/06/24 05:09 105 H 123/67 04/06/24 05:06 103 H 97 04/06/24 05:01 106 H 98 04/06/24 04:56 119 H 98 04/06/24 04:53 103 H 121/76 04/06/24 04:51 100 H 99 04/06/24 04:46 113 H 99 04/06/24 04:41 117 H 99 04/06/24 04:39 110 H 130/88 04/06/24 04:38 37.2 C 04/06/24 04:36 110 H 99 04/06/24 04:31 105 H 99 04/06/24 04:26 111 H 98 04/06/24 04:24 103 H 109/65 04/06/24 04:21 111 H 99 04/06/24 04:16 116 H 100 04/06/24 04:11 110 H 100 04/06/24 04:10 115 H 98/74 L 04/06/24 04:06 111 H 100 04/06/24 04:01 104 H 100 04/06/24 03:56 103 H 100 04/06/24 03:54 100 H 127/72 04/06/24 03:51 102 H 100 04/06/24 03:46 103 H 100 04/06/24 03:41 100 H 100 04/06/24 03:40 100 H 132/73 04/06/24 03:36 97 H 100 04/06/24 03:31 95 H 100 04/06/24 03:26 96 H 100 04/06/24 03:25 99 H 109/62 04/06/24 03:21 98 H 100 04/06/24 03:16 107 H 100 04/06/24 03:10 93 H 100 04/06/24 03:09 96 H 119/73 04/06/24 03:05 94 H 100 04/06/24 03:01 16 04/06/24 03:01 37.0 C 16 04/06/24 03:00 97 H 100 04/06/24 02:55 95 H 100 04/06/24 02:54 96 H 118/76 04/06/24 02:50 101 H 100 04/06/24 02:45 103 H 100 04/06/24 02:40 105 H 100 04/06/24 02:35 105 H 100 04/06/24 02:33 104 H 129/64 04/06/24 02:30 100 H 16 100 04/06/24 02:28 108 H 126/59 L 04/06/24 02:25 111 H 100 04/06/24 02:23 107 H 126/71 04/06/24 02:20 111 H 100 04/06/24 02:19 108 H 124/66 04/06/24 02:15 111 H 100 04/06/24 02:13 100 H 127/76 04/06/24 02:11 103 H 129/77 04/06/24 02:10 110 H 99 04/06/24 02:09 120 H 128/78 04/06/24 02:07 102 H 130/79 04/06/24 02:05 99 04/06/24 02:05 96 H 04/06/24 02:05 92 H 133/81 04/06/24 02:03 100 H 133/80 04/06/24 02:00 110 H 100 04/06/24 01:55 113 H 100 04/06/24 01:54 113 H 143/85 H 04/06/24 01:50 102 H 100 04/06/24 01:45 105 H 100 04/06/24 01:35 104 H 100 04/06/24 01:33 36.8 C 04/06/24 01:31 106 H 158/86 H 04/06/24 00:52 18 04/06/24 00:52 36.5 C 18 04/06/24 00:18 88 113/65 04/05/24 23:18 94 H 114/64 04/05/24 22:08 101 H 118/68 04/05/24 21:57 18 04/05/24 21:57 36.8 C 18 04/05/24 20:40 37.5 C 04/05/24 19:16 36.8 C 103 H 18 129/74 04/05/24 19:10 Room Air 04/05/24 18:30 18 04/05/24 18:30 18 04/05/24 18:00 20 04/05/24 18:00 20 04/05/24 16:30 18 04/05/24 16:30 18 04/05/24 16:19 36.6 C 20 04/05/24 16:13 99 H 120/76 04/05/24 14:00 104 H 17 112/76 96 04/05/24 13:30 110 H 15 Pain Intensity Bilateral Back: Pain Intensity: 6 Bilateral Abdomen: Pain Intensity: 6 Transfer of Care Handoff Completed per policy Notes Mental Status: alert / awake / arousable and participated in evaluation Patient Amnestic to Procedure: Yes Nausea / Vomiting: adequately controlled Pain: adequately controlled Airway Patency, RR, SpO2: stable & adequate BP & HR: stable & adequate Hydration State: stable & adequate Anesthetic Complications: no major complications apparent
[2024-04-06] MEDS ORDERED: KETOROLAC 30 MG/ML VIAL IV PRN (13:39)
[2024-04-06] MEDS ORDERED: NALBUPHINE HCL INJ 10 MG/ML AMP IV PRN (13:39)
[2024-04-06] MEDS: BENZOCAINE 20% SPRY 85 APPLN/85 GM CAN EXT PRN (13:39)
[2024-04-06] MEDS ORDERED: ACETAMINOPHEN 1,000 MG/100 ML VIAL IV PRN (13:39)
[2024-04-06] MEDS ORDERED: MoRPHine SULFATE PF 1 MG/ML 10 ML AMP/VIAL INT SPINAL ONE (13:39)
[2024-04-06] MEDS ORDERED: MoRPHine SULFATE 2 MG/ML CARP IV PRN (13:39)
[2024-04-06] MEDS ORDERED: PROMETHAZINE 6.25 MG/50.25 ML BAG IV PRN (13:39)
[2024-04-06] MEDS ORDERED: MEPERIDINE HCL 25 MG/ML CARP/VIAL IV PRN (13:39)
[2024-04-06] MEDS ORDERED: NO NARCOTICS OR SEDATIVES SCH (13:45)
[2024-04-06] MEDS ORDERED: DC INTRASPINAL MORPHINE SCH (13:45)
--- NOTE | 2024-04-06 14:26 | Infectious Disease Progress Nt ---
Date of Service April 06, 2024 Assessment & Plan (1) Infection of drug-resistant bacteria: (2) 38 weeks gestation of : (3) Term : Plan This is a 23-year-old female 1, para 0, 38 weeks gestation with a past medical history of recurrent ESBL Klebsiella pneumoniae UTIs, recently admitted to [facility] 03/10/24-03/11/24 for sepsis secondary to bilateral pyelonephritis with mild hydronephrosis and C. difficile infection. At that time she was found to have a leukocytosis with a WBC of 26.68 and procalcitonin 36.9. She was started on ertapenem and oral vancomycin. Given her medical complexity she was monitored in the PCU but had ongoing pain and was transferred to [facility] and was followed by Maternal medicine. . There she was evaluated by infectious disease and was discharged on a 14-day course of ertapenem 1 g IV daily as well as a 14-day course of oral vancomycin 125 mg p.o. every 6 hours. She was discharged on 03/14/2024. Since that time she has been evaluated by [facility] on 03/21/24, 03/28/24 and 04/03/24. She was doing well and completed her scheduled antibiotics. On 04/05/2024, she presents to the [facility] ED with acute onset left flank pain and low-grade temperatures at home. 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 She has been evaluated by [employer]OR OF RESIDENTIAL SERVICES and medicine consult. They reached out to [facility] [place] regarding need for transferback to a tertiary care center for further evaluation and management. It was recommended that she remain locally for IV antibiotics with plan for induction and delivery. On admission temperature 36.8, pulse 105, RR 16, O2 sats 99% on room air. Labs notable for: WBC 15.07, potassium 3.1, BUN 5, creatinine 0.58, magnesium 1.5, AST 9, ALT 7, alk phos 188, procalcitonin 0.09. Urinalysis with trace blood, 3+ leukocyte esterase,> 50 WBC, 2+ bacteria. COVID testing positive, influenza A negative, influenza B negative, RSV negative. Renal US shows mild bilateral hydronephrosis with possible urothelial thickening. Nonobstructing bilateral nephrolithiasis.s ID consulted for Pyelonephritis in and H/o ESBL infection. She is currently in the ED and received a dose of Meropenem. No Tele-presenter available for live tele-visit at time of consult or followup. E-consult completed via chart review and discussion with medicine and ob team and ID pharm Current microbiology: Blood culture 04/05 NGTD Urine culture 04/05 NGTD Prior microbiology: Urine culture 01/10/2024 ESBL Klebsiella pneumoniae (S amox/Clav, ertapenem, Levaquin, meropenem, nitrofurantoin, pip-tazo) Urine culture 01/30/2024 ESBL Klebsiella pneumoniae (S amox/Clav, cefoxitin, ertapenem, Levaquin, meropenem, nitrofurantoin, pip-tazo) Urine culture 02/22/2024 ESBL Klebsiella pneumoniae (S amox-clav, cefoxitin, ertapenem, Levaquin, meropenem, nitrofurantoin, pip-tazo Urine culture 03/09/2024 ESBL Klebsiella pneumoniae(S amox-clav, cefoxitin, ertapenem, Levaquin, meropenem, nitrofurantoin, pip-tazo Blood culture 03/09/2024 1/ bottles ESBL Klebsiella pneumoniae Urine culture 03/20/2024 20K Pamela albicans Group B strep vaginal culture 03/21/2024 no group B strep isolated # Complicated UTI/ Possible pyelonephritis in # Mild bilateral hydronephrosis # Recent ESBL Klebsiella pneumoniae sepsis with bacteremia 2/2 Pyelonephritis during ,03/09/2024 # History of recurrent ESBL Klebsiella pneumoniae UTI during # History of C diff infection, 03/09/2024 # COVID 19 positive testing, 04/05/2024 Discussion- In the setting of pyuria/bacteriuria, left flank pain, leukocytosis , tachycardia, h/o ESBL infection started treatment for possible ESBL Klebsiella pyelonephritis. Started w/ a broader carbapenem--> meropenem as the patient has had multiple healthcare exposures in the last 2 months. Regarding positive COVID testing, per discussion with team, patient does not seem to have respiratory symptoms. She did have fevers. This may be secondary to a urinary source or COVID. She is not requiring supplemental oxygen. She is , so if symptoms recommended 5 d of paxlovid 400 mg po q12h or 3 d of Remdesivir IV (200 mg once then 100 mg IV daily for 2 d). Per chart review, patient declined 04/06 Tm 38.1 ( once ) No documented diarrhea or respiratory symptoms. She was induced but had failure to descend --> underwent C section which was uncomplicated and delivered live male child. Recommendations Continue meropenem 1 g IV every 8 hours Will start vancomycin 125 mg Po daily prophylaxis while on antibiotics and for 7 days after completion of antibiotics Follow-up urine culture Follow-up blood cultures ID will not round or review the chart over the weekend. Call covering provider at [facility] at [phone] with questions. ID coverage will return on service , Tuesday04/09/24. Oh Plata MD, MPH Infectious Disease [facility], ID Division Admission and Anticipated Discharge Date Admission Date: April 05, 2024 Subjective This patient recommendation is based on a telemedicine consult request which was completed asynchronously through chart review and information provided by the primary physician. The patient was not seen or examined today. The evaluation is consultative in nature and all patient care and treatment decisions can either be accepted or rejected by the patient's primary hospital-based treating physician using their own independent medical judgment for their patient. Time Spent Reviewing Chart: 21 - 30 minutes No Telepresenter available today for live visit Chart reviewed TM 38.1 Declined paxlovid UCx and BCx NGTD Underwent C section this afternoon and delivered live male child Results & Data Vital Signs (Past 12 Hours) Vital Signs Temp Pulse Resp BP Pulse Ox 04/06/24 14:21 106 H 109/66 04/06/24 14:20 115 H 99 04/06/24 14:16 105 H 107/68 04/06/24 14:15 99 H 100 04/06/24 14:11 101 H 106/67 04/06/24 14:10 99 H 100 04/06/24 14:06 101 H 106/66 04/06/24 14:05 101 H 100 04/06/24 14:03 108 H 111/66 04/06/24 14:00 105 H 100 04/06/24 13:59 111 H 82/44 L 04/06/24 13:58 112 H 85/53 L 04/06/24 13:56 108 H 94/55 L 04/06/24 13:55 105 H 100 04/06/24 13:50 113 H 100 04/06/24 13:46 117 H 107/64 04/06/24 13:45 115 H 100 04/06/24 13:40 115 H 99 04/06/24 13:37 113 H 113/68 04/06/24 13:36 109 H 89 L 04/06/24 13:35 109 H 100 04/06/24 13:30 112 H 100 04/06/24 13:27 122 H 146/63 H 04/06/24 13:25 117 H 100 04/06/24 13:20 112 H 100 04/06/24 13:16 125 H 124/74 04/06/24 13:15 128 H 96 04/06/24 13:10 119 H 96 04/06/24 13:06 117 H 130/74 04/06/24 13:05 119 H 96 04/06/24 13:00 122 H 98 04/06/24 12:56 122 H 115/70 04/06/24 12:55 129 H 95 04/06/24 11:16 36.8 C 04/06/24 11:15 104 H 99 04/06/24 11:10 103 H 99 04/06/24 11:09 111 H 132/92 04/06/24 11:05 104 H 99 04/06/24 11:01 100 H 91 04/06/24 11:00 97 H 98 04/06/24 10:55 113 H 82 L 04/06/24 10:54 107 H 123/82 04/06/24 10:50 105 H 99 04/06/24 10:45 104 H 98 04/06/24 10:40 120 H 98 04/06/24 10:35 112 H 98 04/06/24 10:30 107 H 98 04/06/24 10:26 120 H 90 04/06/24 10:25 103 H 97 04/06/24 10:17 104 H 97 04/06/24 10:12 104 H 98 04/06/24 10:10 104 H 92 04/06/24 10:09 103 H 127/76 04/06/24 10:07 93 H 97 04/06/24 10:03 24 04/06/24 10:03 37.0 C 24 04/06/24 10:02 113 H 90 04/06/24 10:01 118 H 97 04/06/24 09:57 25 H 04/06/24 09:57 25 H 04/06/24 09:56 118 H 98 04/06/24 09:54 92 04/06/24 09:54 110 H 04/06/24 09:54 109 H 129/75 04/06/24 09:51 120 H 97 04/06/24 09:46 101 H 98 04/06/24 09:41 114 H 97 04/06/24 09:38 108 H 90 04/06/24 09:36 115 H 96 04/06/24 09:31 122 H 97 04/06/24 09:26 105 H 97 04/06/24 09:24 99 H 129/71 04/06/24 09:21 110 H 96 04/06/24 09:19 109 H 89 L 04/06/24 09:16 92 H 97 04/06/24 09:11 104 H 97 04/06/24 09:10 37.4 C 04/06/24 09:06 134 H 94 04/06/24 09:01 100 H 97 04/06/24 08:56 141 H 91 04/06/24 08:51 119 H 95 04/06/24 08:49 112 H 94 04/06/24 08:46 114 H 97 04/06/24 08:45 36.8 C 04/06/24 08:41 122 H 96 04/06/24 08:38 110 H 122/63 04/06/24 08:36 106 H 97 04/06/24 08:31 115 H 97 04/06/24 08:29 114 H 91 04/06/24 08:26 109 H 97 04/06/24 08:24 109 H 126/69 04/06/24 08:21 106 H 98 04/06/24 08:16 104 H 99 04/06/24 08:13 114 H 90 04/06/24 08:11 113 H 100 04/06/24 08:09 102 H 129/73 04/06/24 08:06 107 H 99 04/06/24 08:01 108 H 98 04/06/24 07:56 111 H 99 04/06/24 07:54 106 H 130/81 04/06/24 07:51 38.1 C H 107 H 100 04/06/24 07:46 104 H 99 04/06/24 07:41 110 H 100 04/06/24 07:40 105 H 138/79 04/06/24 07:36 104 H 99 04/06/24 07:31 108 H 100 04/06/24 07:26 111 H 100 04/06/24 07:25 106 H 138/80 04/06/24 07:23 36.8 C 04/06/24 07:21 101 H 100 04/06/24 07:16 89 100 04/06/24 07:11 100 H 100 04/06/24 07:09 96 H 116/67 04/06/24 07:06 96 H 100 04/06/24 07:01 89 100 04/06/24 06:56 102 H 100 04/06/24 06:54 90 133/77 04/06/24 06:51 103 H 100 04/06/24 06:46 93 H 100 04/06/24 06:41 99 H 100 04/06/24 06:39 98 H 130/79 04/06/24 06:36 101 H 100 04/06/24 06:31 107 H 100 04/06/24 06:30 18 04/06/24 06:30 37.0 C 18 04/06/24 06:26 103 H 100 04/06/24 06:23 108 H 125/79 04/06/24 06:21 107 H 100 04/06/24 06:16 104 H 100 04/06/24 06:11 105 H 100 04/06/24 06:09 103 H 117/73 04/06/24 06:06 101 H 100 04/06/24 06:01 107 H 98 04/06/24 05:56 109 H 98 04/06/24 05:54 110 H 124/77 04/06/24 05:51 115 H 98 04/06/24 05:46 115 H 98 04/06/24 05:41 122 H 98 04/06/24 05:39 116 H 128/76 04/06/24 05:36 119 H 98 04/06/24 05:31 123 H 98 04/06/24 05:30 16 04/06/24 05:30 16 04/06/24 05:26 114 H 97 04/06/24 05:23 111 H 122/66 0228/25 05:21 109 H 97 04/06/24 05:16 112 H 97 04/06/24 05:11 107 H 97 04/06/24 05:09 105 H 123/67 04/06/24 05:06 103 H 97 04/06/24 05:01 106 H 98 04/06/24 04:56 119 H 98 04/06/24 04:53 103 H 121/76 04/06/24 04:51 100 H 99 04/06/24 04:46 113 H 99 04/06/24 04:41 117 H 99 04/06/24 04:39 110 H 130/88 04/06/24 04:38 37.2 C 04/06/24 04:36 110 H 99 04/06/24 04:31 105 H 99 04/06/24 04:26 111 H 98 04/06/24 04:24 103 H 109/65 04/06/24 04:21 111 H 99 04/06/24 04:16 116 H 100 04/06/24 04:11 110 H 100 04/06/24 04:10 115 H 98/74 L 04/06/24 04:06 111 H 100 04/06/24 04:01 104 H 100 04/06/24 03:56 103 H 100 04/06/24 03:54 100 H 127/72 04/06/24 03:51 102 H 100 04/06/24 03:46 103 H 100 04/06/24 03:41 100 H 100 04/06/24 03:40 100 H 132/73 04/06/24 03:36 97 H 100 04/06/24 03:31 95 H 100 04/06/24 03:26 96 H 100 04/06/24 03:25 99 H 109/62 04/06/24 03:21 98 H 100 04/06/24 03:16 107 H 100 04/06/24 03:10 93 H 100 04/06/24 03:09 96 H 119/73 04/06/24 03:05 94 H 100 04/06/24 03:01 16 04/06/24 03:01 37.0 C 16 04/06/24 03:00 97 H 100 04/06/24 02:55 95 H 100 04/06/24 02:54 96 H 118/76 04/06/24 02:50 101 H 100 04/06/24 02:45 103 H 100 04/06/24 02:40 105 H 100 04/06/24 02:35 105 H 100 04/06/24 02:33 104 H 129/64 04/06/24 02:30 100 H 16 100 04/06/24 02:28 108 H 126/59 L Laboratory Results Laboratory Results - last 48 hr 04/05/24 04/05/24 04/05/24 09:20 09:34 09:37 WBC 15.07 H RBC 3.89 L Hgb 11.2 L Hct 32.7 L MCV 84.1 MCH 28.8 MCHC 34.3 RDW Std Deviation 40.6 RDW Coeff of [place] 13.4 Plt Count 353 MPV 9.3 L Immature Gran % (Auto) 1.3 Neut % (Auto) 80.3 Lymph % (Auto) 10.6 [place] % (Auto) 7.1 Eos % (Auto) 0.3 Baso % (Auto) 0.4 Neut # (Auto) 12.10 H Lymph # (Auto) 1.60 [place] # (Auto) 1.07 H Eos # (Auto) 0.05 Baso # (Auto) 0.06 Immature Gran # (Auto) 0.19 PT 10.6 INR 1.0 APTT 31 PTT Ratio 1.2 Sodium 134 L Potassium 3.1 L Chloride 105 Carbon Dioxide 19 L Anion Gap 10 BUN 5 L Creatinine 0.58 L Est Cr Clr Drug Dosing 155.8 eGFR 129.52 BUN/Creatinine Ratio 8.6 L Glucose 115 H POC Glucose Lactate 1.1 Calcium 8.9 Magnesium 1.5 L Total Bilirubin 0.7 AST 9 L ALT 7 Alkaline Phosphatase 188 H Troponin I High Sens 3.7 Total Protein 7.0 Albumin 3.8 Globulin 3.2 Albumin/Globulin Ratio 1.2 Triglycerides Cholesterol LDL Cholesterol, Calc VLDL Cholesterol, Calc HDL Cholesterol Cholesterol/HDL Ratio Procalcitonin 0.09 Urine Color Yellow Urine Appearance Cloudy A Urine pH 6.5 Ur Specific [place] 1.012 Urine Protein Trace H Urine Glucose (UA) Negative Urine Ketones Negative Urine Blood Trace H Urine Nitrite Negative Urine Bilirubin Negative Urine Urobilinogen Negative Ur Leukocyte Esterase 3+ H Urine WBC (Auto) >50 H Urine RBC (Auto) 0-2 U Hyaline Cast (Auto) 0-2 U Epithel Cells (Auto) 3-5 H Urine Bacteria (Auto) 2+ H Treponema pallidum Ab Negative SARS-CoV-2 (PCR) Influenza Type A (PCR) Influenza Type B (PCR) RSV (RT-PCR) Blood Type Antibody Screen 04/05/24 04/05/24 04/05/24 10:02 11:53 19:07 WBC RBC Hgb Hct MCV MCH MCHC RDW Std Deviation RDW Coeff of [place] Plt Count MPV Immature Gran % (Auto) Neut % (Auto) Lymph % (Auto) [place] % (Auto) Eos % (Auto) Baso % (Auto) Neut # (Auto) Lymph # (Auto) [place] # (Auto) Eos # (Auto) Baso # (Auto) Immature Gran # (Auto) PT INR APTT PTT Ratio Sodium Potassium Chloride Carbon Dioxide Anion Gap BUN Creatinine Est Cr Clr Drug Dosing eGFR BUN/Creatinine Ratio Glucose POC Glucose 111 H Lactate Calcium Magnesium Total Bilirubin AST ALT Alkaline Phosphatase Troponin I High Sens Total Protein Albumin Globulin Albumin/Globulin Ratio Triglycerides Cholesterol LDL Cholesterol, Calc VLDL Cholesterol, Calc HDL Cholesterol Cholesterol/HDL Ratio Procalcitonin Urine Color Urine Appearance Urine pH Ur Specific [place] Urine Protein Urine Glucose (UA) Urine Ketones Urine Blood Urine Nitrite Urine Bilirubin Urine Urobilinogen Ur Leukocyte Esterase Urine WBC (Auto) Urine RBC (Auto) U Hyaline Cast (Auto) U Epithel Cells (Auto) Urine Bacteria (Auto) Treponema pallidum Ab SARS-CoV-2 (PCR) POSITIVE A Influenza Type A (PCR) Negative Influenza Type B (PCR) Negative RSV (RT-PCR) Negative Blood Type O Positive Antibody Screen NEGATIVE 04/06/24 06:09 WBC 13.34 H RBC 3.52 L Hgb 10.2 L Hct 29.6 L MCV 84.1 MCH 29.0 MCHC 34.5 RDW Std Deviation 41.6 RDW Coeff of [place] 13.7 Plt Count 316 MPV 9.2 L Immature Gran % (Auto) 1.5 Neut % (Auto) 83.0 Lymph % (Auto) 8.9 [place] % (Auto) 6.0 Eos % (Auto) 0.3 Baso % (Auto) 0.3 Neut # (Auto) 11.07 H Lymph # (Auto) 1.19 L [place] # (Auto) 0.80 H Eos # (Auto) 0.04 Baso # (Auto) 0.04 Immature Gran # (Auto) 0.20 PT INR APTT PTT Ratio Sodium 136 Potassium 3.3 L Chloride 110 H Carbon Dioxide 19 L Anion Gap 7 BUN 3 L Creatinine 0.51 L Est Cr Clr Drug Dosing 182.7 eGFR 133.59 BUN/Creatinine Ratio 5.9 L Glucose 112 H POC Glucose Lactate Calcium 7.8 L Magnesium 1.4 L Total Bilirubin 0.6 AST 9 L ALT 5 L Alkaline Phosphatase 148 H Troponin I High Sens Total Protein 6.0 Albumin 3.0 L Globulin 3.0 Albumin/Globulin Ratio 1.0 Triglycerides 164 H Cholesterol 128 LDL Cholesterol, Calc 57 VLDL Cholesterol, Calc 33 H HDL Cholesterol 38 Cholesterol/HDL Ratio 3.4 Procalcitonin Urine Color Urine Appearance Urine pH Ur Specific [place] Urine Protein Urine Glucose (UA) Urine Ketones Urine Blood Urine Nitrite Urine Bilirubin Urine Urobilinogen Ur Leukocyte Esterase Urine WBC (Auto) Urine RBC (Auto) U Hyaline Cast (Auto) U Epithel Cells (Auto) Urine Bacteria (Auto) Treponema pallidum Ab SARS-CoV-2 (PCR) Influenza Type A (PCR) Influenza Type B (PCR) RSV (RT-PCR) Blood Type Antibody Screen Diagnostic Findings Microbiology 04/05/24 09:34 Urine,Clean Catch Urine Culture - Preliminary Pin-point growth present, reincubating. 04/05/24 09:20 Blood Aerobic Blood Culture - Preliminary No growth in Aerobic bottle after 24 hours. 04/05/24 09:20 Blood Anaerobic Blood Culture - Preliminary No growth in Anaerobic bottle after 24 hours. 04/05/24 09:37 Blood Aerobic Blood Culture - Preliminary No growth in Aerobic bottle after 24 hours. 04/05/24 09:37 Blood Anaerobic Blood Culture - Preliminary No growth in Anaerobic bottle after 24 hours. Renal Ultrasound 04/05/24 11:52 RENAL ULTRASOUND HISTORY: Acute bilateral flank pain ? pyelo COMPARISON: 03/09/2024 FINDINGS: Right kidney: 12.3 x 6.3 x 6.6 cm. Mild hydronephrosis is similar to prior. There is suggestion of urothelial thickening. Nonobstructing calculi measure up to 4 mm. No perinephric fluid collections. Normal corticomedullary differentiation and cortical thickness. Left kidney: 12.2 x 6.2 x 5.9 cm. Mild hydronephrosis similar to prior. Nonobstructing calculi measure up to 4 mm. There is suggestion of urothelial thickening. No perinephric fluid collections. Normal corticomedullary differentiation and cortical thickness. Bladder: Partial distention is not well-visualized secondary to mass effect from the intrauterine fetus. IMPRESSION: 1. Mild bilateral hydronephrosis with possible urothelial thickening. Correlate with urinalysis to exclude infection. 2. Nonobstructing bilateral nephrolithiasis. 3. Decompressed urinary bladder is not well-visualized, likely compressed from the intrauterine fetus. ACT 112: Negative or not required by law. Electronically signed by: Tani Rice M.D. 04/05/2024 3:13 PM Medications Administered Home Medications Medication Instructions Recorded Confirmed Last Taken [id number] 1 mg 1 tab PO DAILY 09/01/23 04/05/24 04/04/24 tablet acetone (urine) test (Ketone Urine #50 ea 12/08/23 04/04/24 Unknown Test strips) blood sugar diagnostic (OneTouch #150 ea 12/08/23 04/04/24 Unknown Verio test strips) lancets 33 gauge (OneTouch Delica #150 ea 12/08/23 04/04/24 Unknown Plus Lancet) blood-glucose meter (OneTouch #1 ea 01/02/24 04/04/24 Unknown Verio Reflect Meter) famotidine 20 mg tablet (Pepcid) 20 mg PO DAILY PRN Heartburn 03/16/24 04/05/24 Unknown folic acid 1 mg tablet 1 mg PO DAILY 03/16/24 04/05/24 Unknown ondansetron 4 mg disintegrating 4 mg PO Q8H 03/16/24 04/05/24 04/05/24 tablet cephalexin 500 mg capsule 500 mg PO QPM #40 caps 03/21/24 04/05/24 04/05/24 Tylenol 1,000 mg PO DIRECTED PRN Pain 04/05/24 04/05/24 04/05/24 0700 Active Medications Generic Name Dose Route Start Last Admin Trade Name Freq PRN Reason Stop Dose Admin Acetaminophen 1,000 mg 04/05/24 16:19 04/05/24 20:52 Acetaminophen 500 Mg Tab PO 05/05/24 16:18 1,000 mg Q8H PRN Administration Pain Benzocaine 1 appln 04/06/24 12:34 04/06/24 13:39 Benzocaine 20% [place] 85 Appln/85 Gm Can EXT 05/06/24 12:33 1 appln UD PRN Administration use on skin as needed Lactated Ringer's 1,000 mls @ 125 mls/hr 04/05/24 16:01 04/06/24 10:35 Lr IV 04/06/24 16:00 999 mls/hr .Q8H PRN Administration L&D Protocol Protocol Meropenem 1,000 mg/ Syringe 20 mls @ 2 mls/min 04/05/24 17:00 04/06/24 09:11 IV 04/12/24 16:59 2 mls/min Q8H DOROTHEA Administration Oxytocin 30 units in 500 mls @ 8 mls/hr 04/05/24 20:03 04/06/24 10:10 Pitocin 30 Units/Nss IV 04/07/24 20:02 0.48 units/hr .Q24H PRN 8 mls/hr Labor Induction/Augmentation Titration Protocol 0.48 UNITS/HR Azithromycin 500 mg in 255 mls @ 127.5 mls/hr 04/06/24 12:45 04/06/24 13:15 Zithromax IV 04/07/24 12:44 127.5 mls/hr PREOP DOROTHEA Administration Ondansetron HCl 4 mg 04/05/24 16:19 04/06/24 13:21 Ondansetron Inj 2 Mg/Ml 2 Ml Vial IV 05/05/24 16:18 4 mg Q6H PRN Administration Nausea And Vomiting
--- NOTE | 2024-04-06 15:16 | Hospitalist Progress Note ---
Date of Service April 06, 2024 Assessment & Plan (1) Pyelonephritis: Plan: Acute pyelonephritis With leukocytosis of 13. Downtrending. May be elevated due to reactive stress of sx/delivery. No left shift. Tissue perfusion intact Renal ultrasound with mild bilateral hydronephrosis, possible urothelial thickening suspicious for pyelonephritis. Decompressed bladder. Recent stenting and care at [facility] completing course of ertapenem with ESBL E. coli at that time. ID note reviewed. Recommend broadening carbapenem to meropenem given multiple healthcare exposures history of ESBL. 1 g every 8 hours meropenem continued. COVID-positive but without respiratory symptoms. Supportive care for this for now. If symptoms develop then treat with 3 days of remdesivir however she does not have respiratory symptoms at this time and will defer. Follow urine cult ures. Follow blood cultures. Appreciate recommendations - Patient had a complicated course with multiple infections and recurrent ESBL pyelonephritis, C. difficile, COVID. At risk for immune compromise with , but has an unsually severe level of illness and recurrence of infection given otherwise healthy hx and young age. Will obtain Ig BO levels to evaluate for deficiency. She is not pancytopenic. HIV testing during was normal. No prior history of childhood multiple resistant infections or immune compromise. Expansion to cytotoxic/cytokine assays not indicated at this time. Continue meropenem 1 g every 8 hours - CM consulted. Will need US-PIV ordered and placed by hospitalist prior to d/c for completion of antibiotics. BCs pending. Final duration and agent per ID. CM consulted. She is normotensive. Afebrile at time of admission although Tmax 38.1 last 24 hours. Tylenol as needed. Tachycardic with some reactive element of this post Continue IV FM - Repeat US-Renal in 1-2 days to ensure improvement in hydro. Follow BMP daily. 38-week Ash is a healthy 23-year-old G1, P0 who presented at 31+1 with acute multidrug-resistant bilateral pyelonephritis without sepsis Case was reviewed with MFM who recommended stabilized with antibiotics and proceeding with induction of labor Was induced however had failure to descend and failed vacuum attempt and subsequently presented to section S/p uncomplicated section 04/06 at approximately 11:20 AM. Developm ent of 1 viable male infant. COVID No respiratory symptoms, no hypoxia Supportive care If respiratory symptoms or hypoxia develop then add remdesivir at that time. Currently deferred Electrolyte Abnormalities Magnesium 1.4, repleted Potassium 3.3, repleted Recent C. difficile positive Risk of immune compromise, multiple infections and it is requiring recurrent broad-spectrum antibiotics. Will initiate prophylactic vancomycin 125 mg daily If diarrhea/GI symptoms develop then test for C. difficile. If clinical C. difficile or toxin positive develops then switch to QID vanco vs dificid Anemia Stable, suspected Follow H&H and for bleeding Admission and Anticipated Discharge Date Admission Date: April 05, 2024 Subjective Seen at the bedside. Doing well post c/s. Pain well controlled Endorses chronic mild PND and cough for a few weeks bu tno change. Runny nose from crying post delivery, but no other respiratory sx/rhinorrhea. Denies dyspnea, chest pain, chest pressure. No diarrhea Generally tired, no fevers/chills today. + mild back discomfort. Physical Exam Physical Exam: General: A&Ox3. NAD. Cooperative. Fatigued appearing but nontoxic HEENT: Atraumatic, normocephalic. Vision and hearing grossly intact. Pulm: Symmetrical chest rise. No increased work of breathing. No respiratory distress. Cardiac: Radial pulses intact and symmetrical. Abdominal: s/p C/S dressing C/D/I Results & Data Results & Data Vital Signs (Past 12 Hours) Vital Signs Temp Pulse Resp BP Pulse Ox O2 Del Method 04/06/24 14:56 121 H 112/75 04/06/24 14:55 121 H 100 04/06/24 14:51 141 H 109/75 04/06/24 14:50 129 H 100 04/06/24 14:46 122 H 114/76 04/06/24 14:45 123 H 99 04/06/24 14:41 125 H 111/74 04/06/24 14:40 126 H 98 04/06/24 14:39 117 H 86 L 04/06/24 14:36 101 H 117/76 04/06/24 14:35 103 H 100 04/06/24 14:31 111 H 114/76 04/06/24 14:30 107 H 100 04/06/24 14:26 106 H 113/69 04/06/24 14:25 107 H 100 04/06/24 14:21 106 H 109/66 04/06/24 14:20 115 H 99 04/06/24 14:16 105 H 107/68 04/06/24 14:15 99 H 100 04/06/24 14:11 101 H 106/67 04/06/24 14:10 99 H 100 04/06/24 14:06 101 H 106/66 04/06/24 14:05 101 H 100 04/06/24 14:03 108 H 111/66 04/06/24 14:00 105 H 100 04/06/24 13:59 111 H 82/44 L 04/06/24 13:58 112 H 85/53 L 04/06/24 13:56 108 H 94/55 L 04/06/24 13:55 105 H 100 04/06/24 13:50 113 H 100 04/06/24 13:46 117 H 107/64 04/06/24 13:45 115 H 100 04/06/24 13:40 115 H 99 04/06/24 13:37 113 H 113/68 04/06/24 13:36 109 H 89 L 04/06/24 13:35 109 H 100 04/06/24 13:30 112 H 100 04/06/24 13:27 122 H 146/63 H 04/06/24 13:25 117 H 100 04/06/24 13:20 112 H 100 04/06/24 13:16 125 H 124/74 04/06/24 13:15 128 H 96 04/06/24 13:10 119 H 96 04/06/24 13:06 117 H 130/74 04/06/24 13:05 119 H 96 04/06/24 13:00 122 H 98 04/06/24 12:56 122 H 115/70 04/06/24 12:55 37.0 C 18 04/06/24 12:55 37.0 C 18 Room Air 04/06/24 12:55 129 H 95 04/06/24 11:16 36.8 C 04/06/24 11:15 104 H 99 04/06/24 11:10 103 H 99 04/06/24 11:09 111 H 132/92 04/06/24 11:05 104 H 99 04/06/24 11:01 100 H 91 04/06/24 11:00 97 H 98 04/06/24 10:55 113 H 82 L 04/06/24 10:54 107 H 123/82 04/06/24 10:50 105 H 99 04/06/24 10:45 104 H 98 04/06/24 10:40 120 H 98 04/06/24 10:35 112 H 98 04/06/24 10:30 107 H 98 04/06/24 10:26 120 H 90 04/06/24 10:25 103 H 97 04/06/24 10:17 104 H 97 04/06/24 10:12 104 H 98 04/06/24 10:10 104 H 92 04/06/24 10:09 103 H 127/76 04/06/24 10:07 93 H 97 04/06/24 10:03 24 04/06/24 10:03 37.0 C 24 04/06/24 10:02 113 H 90 04/06/24 10:01 118 H 97 04/06/24 09:57 25 H 04/06/24 09:57 25 H 04/06/24 09:56 118 H 98 04/06/24 09:54 92 04/06/24 09:54 110 H 04/06/24 09:54 109 H 129/75 04/06/24 09:51 120 H 97 04/06/24 09:46 101 H 98 04/06/24 09:41 114 H 97 04/06/24 09:38 108 H 90 04/06/24 09:36 115 H 96 04/06/24 09:31 122 H 97 04/06/24 09:26 105 H 97 04/06/24 09:24 99 H 129/71 04/06/24 09:21 110 H 96 04/06/24 09:19 109 H 89 L 04/06/24 09:16 92 H 97 04/06/24 09:11 104 H 97 04/06/24 09:10 37.4 C 04/06/24 09:06 134 H 94 04/06/24 09:01 100 H 97 04/06/24 08:56 141 H 91 04/06/24 08:51 119 H 95 04/06/24 08:49 112 H 94 04/06/24 08:46 114 H 97 04/06/24 08:45 36.8 C 04/06/24 08:41 122 H 96 04/06/24 08:38 110 H 122/63 04/06/24 08:36 106 H 97 04/06/24 08:31 115 H 97 04/06/24 08:29 114 H 91 04/06/24 08:26 109 H 97 04/06/24 08:24 109 H 126/69 04/06/24 08:21 106 H 98 04/06/24 08:16 104 H 99 04/06/24 08:13 114 H 90 04/06/24 08:11 113 H 100 04/06/24 08:09 102 H 129/73 04/06/24 08:06 107 H 99 04/06/24 08:01 108 H 98 04/06/24 07:56 111 H 99 04/06/24 07:54 106 H 130/81 04/06/24 07:51 38.1 C H 107 H 100 04/06/24 07:46 104 H 99 04/06/24 07:41 110 H 100 04/06/24 07:40 105 H 138/79 04/06/24 07:36 104 H 99 04/06/24 07:31 108 H 100 04/06/24 07:26 111 H 100 04/06/24 07:25 106 H 138/80 04/06/24 07:23 36.8 C 04/06/24 07:21 101 H 100 04/06/24 07:16 89 100 04/06/24 07:11 100 H 100 04/06/24 07:09 96 H 116/67 04/06/24 07:06 96 H 100 04/06/24 07:01 89 100 04/06/24 06:56 102 H 100 04/06/24 06:54 90 133/77 04/06/24 06:51 103 H 100 04/06/24 06:46 93 H 100 04/06/24 06:41 99 H 100 04/06/24 06:39 98 H 130/79 04/06/24 06:36 101 H 100 04/06/24 06:31 107 H 100 04/06/24 06:30 18 04/06/24 06:30 37.0 C 18 04/06/24 06:26 103 H 100 04/06/24 06:23 108 H 125/79 04/06/24 06:21 107 H 100 04/06/24 06:16 104 H 100 04/06/24 06:11 105 H 100 04/06/24 06:09 103 H 117/73 04/06/24 06:06 101 H 100 04/06/24 06:01 107 H 98 04/06/24 05:56 109 H 98 04/06/24 05:54 110 H 124/77 04/06/24 05:51 115 H 98 04/06/24 05:46 115 H 98 04/06/24 05:41 122 H 98 04/06/24 05:39 116 H 128/76 04/06/24 05:36 119 H 98 04/06/24 05:31 123 H 98 04/06/24 05:30 16 04/06/24 05:30 16 04/06/24 05:26 114 H 97 04/06/24 05:23 111 H 122/66 04/06/24 05:21 109 H 97 04/06/24 05:16 112 H 97 04/06/24 05:11 107 H 97 04/06/24 05:09 105 H 123/67 04/06/24 05:06 103 H 97 04/06/24 05:01 106 H 98 04/06/24 04:56 119 H 98 04/06/24 04:53 103 H 121/76 04/06/24 04:51 100 H 99 04/06/24 04:46 113 H 99 04/06/24 04:41 117 H 99 04/06/24 04:39 110 H 130/88 04/06/24 04:38 37.2 C 04/06/24 04:36 110 H 99 04/06/24 04:31 105 H 99 04/06/24 04:26 111 H 98 04/06/24 04:24 103 H 109/65 04/06/24 04:21 111 H 99 04/06/24 04:16 116 H 100 04/06/24 04:11 110 H 100 04/06/24 04:10 115 H 98/74 L 04/06/24 04:06 111 H 100 04/06/24 04:01 104 H 100 04/06/24 03:56 103 H 100 04/06/24 03:54 100 H 127/72 04/06/24 03:51 102 H 100 04/06/24 03:46 103 H 100 04/06/24 03:41 100 H 100 04/06/24 03:40 100 H 132/73 04/06/24 03:36 97 H 100 04/06/24 03:31 95 H 100 04/06/24 03:26 96 H 100 04/06/24 03:25 99 H 109/62 04/06/24 03:21 98 H 100 04/06/24 03:16 107 H 100 04/06/24 03:10 93 H 100 04/06/24 03:09 96 H 119/73 04/06/24 03:05 94 H 100 04/06/24 03:01 16 04/06/24 03:01 37.0 C 16 04/06/24 03:00 97 H 100 PG Care Time/CCT Total # of Minutes Spent Total Time Spent with Patient: Total time spent is greater than 50% in coordination of care (as documented) at patient's floor/unit and/or counseling patient: Coding Level of Care Code 31848 SUB INP/OBS CARE 3/50MIN Diagnoses Pyelonephritis N12
[2024-04-06] MEDS: OXYTOCIN 20 UNITS/LR 1,002 ML IV SCH (15:21)
[2024-04-06 15:42] LABS: Immunoglobulin A 162.2 mg/dl (70-400); Immunoglobulin G 838.6 mg/dl (635-1741); Immunoglobulin M 112.7 mg/dl (45-281)
[2024-04-06] MEDS: KETOROLAC 30 MG/ML VIAL IV SCH ×2 (15:54→22:10)
--- NOTE | 2024-04-06 15:54 | Anesthesiology Progress Note ---
Date of Service April 06, 2024 Anesthesia Post Procedure Vital Signs Vital Signs: Temp Pulse Resp BP Pulse Ox O2 Del Method 04/06/24 15:31 113 H 117/72 04/06/24 15:26 115 H 118/72 04/06/24 15:21 111 H 119/72 04/06/24 15:16 112 H 116/65 04/06/24 15:12 121 H 111/62 04/06/24 15:06 130 H 109/78 04/06/24 15:05 122 H 100 04/06/24 15:01 114 H 118/78 04/06/24 15:00 127 H 100 04/06/24 14:56 121 H 112/75 04/06/24 14:55 121 H 100 04/06/24 14:51 141 H 109/75 04/06/24 14:50 129 H 100 04/06/24 14:46 122 H 114/76 04/06/24 14:45 123 H 99 04/06/24 14:41 125 H 111/74 04/06/24 14:40 126 H 98 04/06/24 14:39 117 H 86 L 04/06/24 14:36 101 H 117/76 04/06/24 14:35 103 H 100 04/06/24 14:31 111 H 114/76 04/06/24 14:30 107 H 100 04/06/24 14:26 106 H 113/69 04/06/24 14:25 107 H 100 04/06/24 14:21 106 H 109/66 04/06/24 14:20 115 H 99 04/06/24 14:16 105 H 107/68 04/06/24 14:15 99 H 100 04/06/24 14:11 101 H 106/67 04/06/24 14:10 99 H 100 04/06/24 14:06 101 H 106/66 04/06/24 14:05 101 H 100 04/06/24 14:03 108 H 111/66 04/06/24 14:00 105 H 100 04/06/24 13:59 111 H 82/44 L 04/06/24 13:58 112 H 85/53 L 04/06/24 13:56 108 H 94/55 L 04/06/24 13:55 105 H 100 04/06/24 13:50 113 H 100 04/06/24 13:46 117 H 107/64 04/06/24 13:45 115 H 100 04/06/24 13:40 115 H 99 04/06/24 13:37 113 H 113/68 04/06/24 13:36 109 H 89 L 04/06/24 13:35 109 H 100 04/06/24 13:30 112 H 100 04/06/24 13:27 122 H 146/63 H 04/06/24 13:25 117 H 100 04/06/24 13:20 112 H 100 04/06/24 13:16 125 H 124/74 04/06/24 13:15 128 H 96 04/06/24 13:10 119 H 96 04/06/24 13:06 117 H 130/74 04/06/24 13:05 119 H 96 04/06/24 13:00 122 H 98 04/06/24 12:56 122 H 115/70 04/06/24 12:55 37.0 C 18 04/06/24 12:55 37.0 C 18 Room Air 04/06/24 12:55 129 H 95 04/06/24 11:16 36.8 C 04/06/24 11:15 104 H 99 04/06/24 11:10 103 H 99 04/06/24 11:09 111 H 132/92 04/06/24 11:05 104 H 99 04/06/24 11:01 100 H 91 04/06/24 11:00 97 H 98 04/06/24 10:55 113 H 82 L 04/06/24 10:54 107 H 123/82 04/06/24 10:50 105 H 99 04/06/24 10:45 104 H 98 04/06/24 10:40 120 H 98 04/06/24 10:35 112 H 98 04/06/24 10:30 107 H 98 04/06/24 10:26 120 H 90 04/06/24 10:25 103 H 97 04/06/24 10:17 104 H 97 04/06/24 10:12 104 H 98 04/06/24 10:10 104 H 92 04/06/24 10:09 103 H 127/76 04/06/24 10:07 93 H 97 04/06/24 10:03 24 04/06/24 10:03 37.0 C 24 04/06/24 10:02 113 H 90 04/06/24 10:01 118 H 97 04/06/24 09:57 25 H 04/06/24 09:57 25 H 04/06/24 09:56 118 H 98 04/06/24 09:54 92 04/06/24 09:54 110 H 04/06/24 09:54 109 H 129/75 04/06/24 09:51 120 H 97 04/06/24 09:46 101 H 98 04/06/24 09:41 114 H 97 04/06/24 09:38 108 H 90 04/06/24 09:36 115 H 96 04/06/24 09:31 122 H 97 04/06/24 09:26 105 H 97 04/06/24 09:24 99 H 129/71 04/06/24 09:21 110 H 96 04/06/24 09:19 109 H 89 L 04/06/24 09:16 92 H 97 04/06/24 09:11 104 H 97 04/06/24 09:10 37.4 C 04/06/24 09:06 134 H 94 04/06/24 09:01 100 H 97 04/06/24 08:56 141 H 91 04/06/24 08:51 119 H 95 04/06/24 08:49 112 H 94 04/06/24 08:46 114 H 97 04/06/24 08:45 36.8 C 04/06/24 08:41 122 H 96 04/06/24 08:38 110 H 122/63 04/06/24 08:36 106 H 97 04/06/24 08:31 115 H 97 04/06/24 08:29 114 H 91 04/06/24 08:26 109 H 97 04/06/24 08:24 109 H 126/69 04/06/24 08:21 106 H 98 04/06/24 08:16 104 H 99 04/06/24 08:13 114 H 90 04/06/24 08:11 113 H 100 04/06/24 08:09 102 H 129/73 04/06/24 08:06 107 H 99 04/06/24 08:01 108 H 98 04/06/24 07:56 111 H 99 04/06/24 07:54 106 H 130/81 04/06/24 07:51 38.1 C H 107 H 100 04/06/24 07:46 104 H 99 04/06/24 07:41 110 H 100 04/06/24 07:40 105 H 138/79 04/06/24 07:36 104 H 99 04/06/24 07:31 108 H 100 04/06/24 07:26 111 H 100 04/06/24 07:25 106 H 138/80 04/06/24 07:23 36.8 C 04/06/24 07:21 101 H 100 04/06/24 07:16 89 100 04/06/24 07:11 100 H 100 04/06/24 07:09 96 H 116/67 04/06/24 07:06 96 H 100 04/06/24 07:01 89 100 04/06/24 06:56 102 H 100 04/06/24 06:54 90 133/77 04/06/24 06:51 103 H 100 04/06/24 06:46 93 H 100 04/06/24 06:41 99 H 100 04/06/24 06:39 98 H 130/79 04/06/24 06:36 101 H 100 04/06/24 06:31 107 H 100 04/06/24 06:30 18 04/06/24 06:30 37.0 C 18 04/06/24 06:26 103 H 100 04/06/24 06:23 108 H 125/79 04/06/24 06:21 107 H 100 04/06/24 06:16 104 H 100 04/06/24 06:11 105 H 100 04/06/24 06:09 103 H 117/73 04/06/24 06:06 101 H 100 04/06/24 06:01 107 H 98 04/06/24 05:56 109 H 98 04/06/24 05:54 110 H 124/77 04/06/24 05:51 115 H 98 04/06/24 05:46 115 H 98 04/06/24 05:41 122 H 98 04/06/24 05:39 116 H 128/76 04/06/24 05:36 119 H 98 04/06/24 05:31 123 H 98 04/06/24 05:30 16 04/06/24 05:30 16 04/06/24 05:26 114 H 97 04/06/24 05:23 111 H 122/66 04/06/24 05:21 109 H 97 04/06/24 05:16 112 H 97 04/06/24 05:11 107 H 97 04/06/24 05:09 105 H 123/67 04/06/24 05:06 103 H 97 04/06/24 05:01 106 H 98 04/06/24 04:56 119 H 98 04/06/24 04:53 103 H 121/76 04/06/24 04:51 100 H 99 04/06/24 04:46 113 H 99 04/06/24 04:41 117 H 99 04/06/24 04:39 110 H 130/88 04/06/24 04:38 37.2 C 04/06/24 04:36 110 H 99 04/06/24 04:31 105 H 99 04/06/24 04:26 111 H 98 04/06/24 04:24 103 H 109/65 04/06/24 04:21 111 H 99 04/06/24 04:16 116 H 100 04/06/24 04:11 110 H 100 04/06/24 04:10 115 H 98/74 L 04/06/24 04:06 111 H 100 04/06/24 04:01 104 H 100 04/06/24 03:56 103 H 100 04/06/24 03:54 100 H 127/72 04/06/24 03:51 102 H 100 04/06/24 03:46 103 H 100 04/06/24 03:41 100 H 100 04/06/24 03:40 100 H 132/73 04/06/24 03:36 97 H 100 04/06/24 03:31 95 H 100 04/06/24 03:26 96 H 100 04/06/24 03:25 99 H 109/62 04/06/24 03:21 98 H 100 04/06/24 03:16 107 H 100 04/06/24 03:10 93 H 100 04/06/24 03:09 96 H 119/73 04/06/24 03:05 94 H 100 04/06/24 03:01 16 04/06/24 03:01 37.0 C 16 04/06/24 03:00 97 H 100 04/06/24 02:55 95 H 100 04/06/24 02:54 96 H 118/76 04/06/24 02:50 101 H 100 04/06/24 02:45 103 H 100 04/06/24 02:40 105 H 100 04/06/24 02:35 105 H 100 04/06/24 02:33 104 H 129/64 04/06/24 02:30 100 H 16 100 04/06/24 02:28 108 H 126/59 L 04/06/24 02:25 111 H 100 04/06/24 02:23 107 H 126/71 04/06/24 02:20 111 H 100 04/06/24 02:19 108 H 124/66 04/06/24 02:15 111 H 100 04/06/24 02:13 100 H 127/76 04/06/24 02:11 103 H 129/77 04/06/24 02:10 110 H 99 04/06/24 02:09 120 H 128/78 04/06/24 02:07 102 H 130/79 04/06/24 02:05 99 04/06/24 02:05 96 H 04/06/24 02:05 92 H 133/81 04/06/24 02:03 100 H 133/80 04/06/24 02:00 110 H 100 04/06/24 01:55 113 H 100 04/06/24 01:54 113 H 143/85 H 04/06/24 01:50 102 H 100 04/06/24 01:45 105 H 100 04/06/24 01:35 104 H 100 04/06/24 01:33 36.8 C 04/06/24 01:31 106 H 158/86 H 04/06/24 00:52 18 04/06/24 00:52 36.5 C 18 04/06/24 00:18 88 113/65 04/05/24 23:18 94 H 114/64 04/05/24 22:08 101 H 118/68 04/05/24 21:57 18 04/05/24 21:57 36.8 C 18 04/05/24 20:40 37.5 C 04/05/24 19:16 36.8 C 103 H 18 129/74 04/05/24 19:10 Room Air 04/05/24 18:30 18 04/05/24 18:30 18 04/05/24 18:00 20 04/05/24 18:00 20 04/05/24 16:30 18 04/05/24 16:30 18 04/05/24 16:19 36.6 C 20 04/05/24 16:13 99 H 120/76 Pain Intensity Bilateral Back: Pain Intensity: 6 Bilateral Abdomen: Pain Intensity: 6 Transfer of Care Handoff Completed per policy Notes Mental Status: alert / awake / arousable and participated in evaluation Nausea / Vomiting: adequately controlled Pain: adequately controlled Airway Patency, RR, SpO2: stable & adequate BP & HR: stable & adequate Hydration State: stable & adequate Neuraxial Anesthesia: was administered and sensory block is resolving Anesthetic Complications: no major complications apparent and Pt Satisfied with anesthetic care
[2024-04-06] MEDS: SIMETHICONE 80 MG CHEW PO SCH (16:04)
[2024-04-06] MEDS: ACETAMINOPHEN 325 MG TAB ONE (16:05)
[2024-04-06] MEDS: POTASSIUM CHLORIDE CRTAB 20 MEQ TABCR PO STA (17:07)
[2024-04-06] MEDS: VANCOMYCIN HCL 125 MG/2.5ML SOLN PO SCH (17:09)
[2024-04-06] MEDS: CHERRY SYRUP 5 ML UDP PO SCH (17:11)
[2024-04-06] MEDS: MAGNESIUM SULFATE / D5W 1 GM/100 ML BAG IV SCH (17:30)
[2024-04-06] MEDS: fentaNYL citrate PF 100 MCG/2 ML VIAL EPI STA (17:45)
[2024-04-06] MEDS: BUPIVACAINE 0.25% PF 30 ML VIAL EPI STA (17:45)
[2024-04-06] MEDS: LIDOCAINE 2%/EPINEPHRINE 1:200,000 20 ML PF EPI STA (17:50)
[2024-04-06] MEDS: SODIUM CHLORIDE 0.9% PF INJ 10 ML VIAL EPI STA (17:51)
[2024-04-06] MEDS: ACETAMINOPHEN 1000 MG/100 ML IV IV ONE (17:53)
[2024-04-06] MEDS: SODIUM CHLORIDE 0.9% 1,000 ML IV SCH (17:57)
[2024-04-06] MEDS ORDERED: Nursing to Pharmacy Communication SCH (18:30)
[2024-04-06] MEDS ORDERED: ACETAMINOPHEN 325 MG TAB PO SCH (18:45)
[2024-04-06] MEDS: DOCUSATE SODIUM 100 MG CAP PO SCH (20:50)
[2024-04-06] MEDS: ACETAMINOPHEN 325 MG TAB PO SCH (22:15)
[2024-04-07] MEDS: NALOXONE HCL 0.08 MG in SYRINGE 1.8 ML IV PRN (00:15)
[2024-04-07] MEDS ORDERED: AZITHROMYCIN 500 MG/255 ML BAG IV SCH (06:00)
[2024-04-07] MEDS ORDERED: ceFAZolin 2000MG 2,000 MG/15 ML SYR IV ONE (06:00)
--- NOTE | 2024-04-07 06:30 | Obstetrical Progress Note ---
Date of Service <Doc Godoy MD - Last Filed: 04/07/24 07:42> April 07, 2024 Assessment & Plan <Doc Godoy MD - Last Filed: 04/07/24 07:42> (1) care and examination: - POD#1 s/p pLTCS at 38+ wga - AFVSS - Rh+, gbs neg, ri - AM labs pending - Continue routine care, bladder scan & straight cath as needed, work on ambulation, progress diet as tolerated (2) Pyelonephritis: - Continue meropenem 1 g q8h - Follow blood cx, NGTD - Repeat renal US in 1-2 days - Monitor BMP daily - Being followed by hospitalist team & ID; plan to place PIV before d/c for completion of abx, CM aware (3) COVID: - tested +ve 04/05 - currently afebrile, satting well on RA, lungs CTAB - continue supportive care <Kateryna Perry MD, FACOG - Last Filed: 04/07/24 08:12> (1) care and examination: (2) Pyelonephritis: (3) COVID: Subjective <Doc Godoy MD - Last Filed: 04/07/24 07:42> Patient is a 23yo who is POD#1 following delivery at 38+ weeks. Reports some soreness, particularly painful at her hips and the incision, unsure if improved w analgesics Has not been voiding spontaneously; did need straight cath last night Tried eating, no n/v, but felt too dizzy to finish Has been passing gas, no BM yet Lochia is appropriate, diminishing] Planning to breastfeed. Constitutional: no fever, no chills or no sweats Respiratory: no dyspnea Cardiovascular: no chest pain, no palpitations or no calf pain Breast: no breast pain Gastrointestinal: no nausea or no vomiting Genitourinary (female): no dysuria Neurologic: no headache(s) no changes in vision, no headaches Physical Exam <Doc Godoy MD - Last Filed: 04/07/24 07:42> General: Alert, oriented. No acute distress. Cardiac: Regular rate and rhythm, no murmurs, rubs, or gallops. Respiratory: Clear to auscultation bilaterally. No increased work of breathing. Symmetrical chest rise. No respiratory distress. Abdomen: Soft, nontender, nondistended. Bowel sounds present. Uterus: Uterine fundus firm, nontender, palpable 1 cm below the umbilicus. Surg ical scar clean and healing well. Lower extremities: No lower extremity edema or swelling. No deep calf pain. Results & Data <Doc Godoy MD - Last Filed: 04/07/24 07:42> Vital Signs (Past 12 Hours) Vital Signs Temp Pulse Resp BP Pulse Ox O2 Del Method 04/07/24 05:56 16 97 04/07/24 05:00 103/68 04/07/24 04:00 36.5 C 74 18 93/52 L 96 Room Air 04/07/24 03:05 18 98 04/07/24 02:46 18 98 04/07/24 01:43 18 97 04/07/24 00:00 36.6 C 78 18 113/68 96 Room Air 04/06/24 23:55 20 98 04/06/24 22:35 16 95 04/06/24 21:35 18 96 04/06/24 20:45 18 96 04/06/24 19:45 36.6 C 88 18 104/74 95 Room Air 04/06/24 18:30 16 95 Supervising Physician <Kateryna Perry MD, FACOG - Last Filed: 04/07/24 08:12> Co-Signing Physician Notes Resident Physician Supervision Note: I interviewed and examined the patient. Discussed with Dr. Godoy and agree with findings and plan as documented in the note. Any exceptions or clarifications are listed here: POD 1 c/s. From a surgical standpoint, she is doing well. INcision c/d/i. ff/appro tender at u. Patient notes that she feels very sore from the two +hours of pushing. Patient notes a cough but no other uri sx--lungs cta. She is having urinary retention--s/p two doses of narcan and one straight cath. Due to void at 10:30 Appreciate hospitalists input and management of pyelo. She has remained afebrile. WBC stable today. cultures all still pending. IV antibiotics continue. Documented By: Kateryna Perry MD, FACOG Resident Activity Tracking <Doc Godoy MD - Last Filed: 04/07/24 07:42> Resident Involvement: Resident Care Provided Care Provided: Adult Hospital Medicine
[2024-04-07] MEDS ORDERED: ONDANSETRON INJ 2 MG/ML 2 ML VIAL IV PRN (07:39)
[2024-04-07] MEDS ORDERED: diphenhydrAMINE 50 MG/ML VIAL IV PRN (07:39)
[2024-04-07] MEDS ORDERED: PROMETHAZINE 12.5 MG/50.5 ML BAG IV PRN (07:39)
[2024-04-07] MEDS ORDERED: diphenhydrAMINE Capsule 25 MG CAP PO PRN (07:39)
[2024-04-07] MEDS ORDERED: HYDROmorphone INJ 0.5 MG/0.5 ML SYR IV PRN (07:39)
[2024-04-07 07:49] LABS: Basophils # (auto) 0.02 K/uL (0.00-0.20); Basophils % (auto) 0.2 %; Eosinophils # (auto) 0.21 K/uL (0.00-0.50); Eosinophils % (auto) 1.6 %; Hemoglobin 9.9 g/dl (12.0-16.0); Immature Granulocytes # (auto) 0.13 K/uL (0.01-0.20); Lymphocytes # (auto) 1.84 K/uL (1.20-3.40); Lymphocytes % (auto) 13.9 %; Mean Corpuscular Hemoglobin 28.6 pg (25.0-34.0); Mean Corpuscular Hgb Conc 34.1 g/dL (32.0-36.0); Mean Corpuscular Volume 83.8 fL (80.0-100.0); Mean Platelet Volume 9.1 fL (9.4-12.4); Monocytes # (auto) 0.81 K/uL (0.11-0.59); Monocytes % (auto) 6.1 %; Neutrophils # (auto) 10.21 K/uL (1.40-6.50); Neutrophils % (auto) 77.2 %; Platelet Count 342 K/uL (130-400); RDW Coefficient of Variation 13.9 % (11.5-14.5); RDW Standard Deviation 42.5 fL (36.4-46.3); Red Blood Count 3.46 M/uL (4.20-5.40); White Blood Count 13.22 K/ul (4.8-10.8)
[2024-04-07 08:19] LABS: BUN Creatinine Ratio 9.3 (10-20); Calcium 7.9 mg/dl (8.6-10.3); Creatinine Clr Calc Pharmacy 216.7 ml/min; Potassium 4.2 mmol/L (3.5-5.1)
--- NOTE | 2024-04-07 08:26 | Hospitalist Progress Note ---
Date of Service April 07, 2024 Assessment & Plan (1) Pyelonephritis: Plan: Complicated UTI, bilateral pyelonephritis w/ recent hx of ESBL Klebsiella - w/ obstruction 03/11 now s/p delivery by c/s. 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 When fever free x 24 hours and BC negative for at least 24-[address] USPIV. Will need this prior to discharge Repeat renal ultrasound ordered for 04/08/2024 to ensure improvement in obstruction/hydro. BMP daily. Renal function is stable 04/07/2024. Potassium normalized. Will continue to follow with infectious disease. Appreciate reccomendations and ongoing review. - Has been on meropenem 1 g every 8 hours due to recurrent infection level of illness and multiple healthcare/hospital exposures; recent isolates were also sensitive to ertapenem. Follow UC to speciation. Discharge home options for outpatient infusion include elastomeric meropenem infusion ball 1 g every 8 hours versus ertapenem 1 g daily. Final recommendations based on course and UC speciation. Anticipate 7 to 10-day total course of therapy via US-PIV. - Meropenem/Ertapenem are category B. May cause some diarrhea/suki change with , RID <1%. First dose IV antibiotics: Meropenem 04/05/2019 5 PM 10-day course would be complete 04/15/2024 Urinary retention Postdelivery/postop urinary retention. Has had surgical stress, multiple opioid analgesics and challenging delivery Would avoid a Villareal catheter if at all possible given her underlying recurrent ESBL infection. Bladder scan as needed and straight cath for PVR greater than 300-350 cc. Renal bladder repeat ultrasound is pending as noted 38-week Ash is a healthy 23-year-old G1, P0 who presented at 31+1 with acute multidrug-resistant bilateral pyelonephritis without sepsis Case was reviewed with MFM who recommended stabilized with antibiotics and proceeding with induction of labor Was induced however had failure to descend and failed vacuum attempt and subsequently presented to section S/p uncomplicated section 04/06 at approximately 11:20 AM. Development of 1 viable male . COVID No respiratory symptoms, no hypoxia Supportive care Deferred remdesivir, and has minimal/no respiratory symptoms and no hypoxia. Patient had initially deferred a chest x-ray. Inquired whether this would benefit her at this time. She is able to pull 1500 cc by incentive spirometry, does not have shortness of breath, no productive cough, has a downtrending leukocytosis and is afebrile this morning. She has received broad antibiotics is maintained on meropenem and did receive perioperative azithromycin per protocol. Does not show evidence clinically of a superimposed bacterial pneumonia so suspect low utility/low likelihood of change in management based on this and okay to defer. If hypoxia worsening respiratory symptoms or concern for secondary pneumonia rises then order chest x-ray PA/LAT at that time. Would also order MRSA swab at that time Electrolyte Abnormalities Mg improving but still slightly low 04/07. Repletion ordered Potassium normalized 04/07 Recent C. difficile positive Risk of immune compromise, multiple infections and it is requiring recurrent broad-spectrum antibiotics. Continue prophylactic vancomycin 125mg PO daily. Extend for 1 week past completion of abx course for complicated UTI If diarrhea/GI symptoms develop then test for C. difficile. If clinical C. difficile or toxin positive develops then switch to QID vanco vs dificid Anemia / Follow H&H and for bleeding - Hgb 9.9 from 10.2 on 04/07/24. Normotensive, hemodyanmically stable - No acute change in management Admission and Anticipated Discharge Date Admission Date: April 05, 2024 Subjective Seen at the bedside. Clinically appears nontoxic, well and improved from prior. She denies shortness of breath, difficulty breathing. Has appropriate tenderness at her postop site but improving from yesterday. Was curious about the chest x-ray which she had initially declined. Has also had trouble with difficulty voiding/urinary retention. Has had to be straight cathed overnight. No other questions or concerns or interval events Physical Exam Physical Exam: General: A&Ox3. NAD. Cooperative. HEENT: Atraumatic, normocephalic. Vision and hearing grossly intact. Pulm: Symmetrical chest rise. No increased work of breathing. No respiratory distress. Cardiac: Radial pulses intact and symmetrical. Abdominal: s/p C/S, ss c/d/i Results & Data Results & Data Vital Signs (Past 12 Hours) Vital Signs Temp Pulse Resp BP Pulse Ox O2 Del Method 04/07/24 06:29 18 98 04/07/24 05:56 16 97 04/07/24 05:00 103/68 04/07/24 04:00 36.5 C 74 18 93/52 L 96 Room Air 04/07/24 03:05 18 98 04/07/24 02:46 18 98 04/07/24 01:43 18 97 04/07/24 00:00 36.6 C 78 18 113/68 96 Room Air 04/06/24 23:55 20 98 04/06/24 22:35 16 95 04/06/24 21:35 18 96 04/06/24 20:45 18 96 PG Care Time/CCT Total # of Minutes Spent Total Time Spent with Patient: Total time spent is greater than 50% in coordination of care (as documented) at patient's floor/unit and/or counseling patient: Coding Level of Care Code 72957 SUB INP/OBS CARE 3/50MIN Diagnoses Pyelonephritis N12
[2024-04-07] MEDS: PRENATAL VITAMIN 1 TAB PO SCH (08:44)
[2024-04-07] MEDS: FERROUS SULFATE 325 MG TAB PO SCH (08:44)
[2024-04-07 08:58] LABS: Magnesium 1.6 mg/dl (1.7-2.4)
[2024-04-07] MEDS: LIDOCAINE 2% JELLY 5 ML TUBE EXT ONE ×2 (12:30→18:32)
[2024-04-07] MEDS ORDERED: KETOROLAC 30 MG/ML VIAL IV PRN (12:34)
[2024-04-07] MEDS ORDERED: IBUPROFEN 600 MG TAB PO SCH (12:45)
[2024-04-07] MEDS: IBUPROFEN 600 MG TAB PO SCH (16:00)
[2024-04-07] MEDS: HYDROCORTISONE 2.5% CR 30 GM TUBE EXT PRN (17:05)
[2024-04-07] MEDS: DIPHTHER/TETAN/PERTUS Vaccine (Tdap, Adol/Adult) 0.5mL IM ONE (17:19)
[2024-04-07] MEDS: MAGNESIUM OXIDE 400 MG TAB PO SCH (17:21)
[2024-04-07] MEDS: bisacodyL 5 MG TABEC PO SCH (20:04)
[2024-04-08] MEDS ORDERED: Nursing to Pharmacy Communication SCH (01:00)
--- NOTE | 2024-04-08 01:47 | Ultrasound Report ---
EXAM: US renal/blad retro comp CLINICAL HISTORY: Re-eval for hydro/obstruction resolution post c/s TECHNIQUE: Ultrasound of the kidneys and urinary bladder performed in greyscale and Doppler imaging. COMPARISON: 04/05/2023 Ultrasound. FINDINGS: Kidneys: The right kidney measures 10.10 in length The left kidney measures 13.0 cm in length A 0.65 cm echogenic focus is seen in the right superior calyx, may represent a calculus. The previously noted probable calculus in the middle calyx is no longer visualized. A 0.3 cm tiny echogenic focus in the left middle calyx, may represent a calculus or a renal fat. Mild right renal pelvic fullness, interval regression when compared to prior. No hydronephrosis in the left, interval resolution of the prior left pelvic fullness. No cyst or masses were identified. Renal parenchymal echogenicity is normal. Cortical thickness: Within normal. Urinary bladder: Fully-disteneded. Unremarkable. IMPRESSION: 1. A 0.65 cm echogenic focus in the right superior calyx, may represent a calculus. The previously noted probable calculus in the middle calyx is no longer visualized. 2. A 0.3 cm tiny echogenic focus in the left middle calyx, may represent a calculus or a renal fat. (new) 3. Mild right renal pelvic fullness, interval regression when compared to prior. 4. No hydronephrosis in the left, interval resolution of the prior left pelvic fullness. No cyst or masses were identified. Electronically signed by Taniya Dumas 04-08-2024 01:47 AM
[2024-04-08 07:20] LABS: Basophils # (auto) 0.03 K/uL (0.00-0.20); Basophils % (auto) 0.2 %; Eosinophils # (auto) 0.33 K/uL (0.00-0.50); Eosinophils % (auto) 2.6 %; Hematocrit (blood only) 27.4 % (37.0-47.0); Hemoglobin 9.3 g/dl (12.0-16.0); Immature Granulocytes # (auto) 0.19 K/uL (0.01-0.20); Immature Granulocytes % (auto) 1.5 %; Lymphocytes # (auto) 2.07 K/uL (1.20-3.40); Lymphocytes % (auto) 16.6 %; Mean Corpuscular Hemoglobin 28.8 pg (25.0-34.0); Mean Corpuscular Hgb Conc 33.9 g/dL (32.0-36.0); Mean Corpuscular Volume 84.8 fL (80.0-100.0); Mean Platelet Volume 9.2 fL (9.4-12.4); Monocytes # (auto) 0.62 K/uL (0.11-0.59); Neutrophils # (auto) 9.22 K/uL (1.40-6.50); Neutrophils % (auto) 74.1 %; Platelet Count 402 K/uL (130-400); RDW Coefficient of Variation 13.7 % (11.5-14.5); RDW Standard Deviation 42.3 fL (36.4-46.3); Red Blood Count 3.23 M/uL (4.20-5.40); White Blood Count 12.46 K/ul (4.8-10.8)
[2024-04-08 07:42] LABS: BUN Creatinine Ratio 9.4 (10-20); Calcium 7.8 mg/dl (8.6-10.3); Creatinine Clr Calc Pharmacy 175.8 ml/min; Magnesium 1.4 mg/dl (1.7-2.4); Potassium 3.9 mmol/L (3.5-5.1)
[2024-04-08 08:14] LABS: Ferritin 38.4 ng/ml (8-388)
--- NOTE | 2024-04-08 08:16 | Hospitalist Progress Note ---
Date of Service April 08, 2024 Assessment & Plan (1) Pyelonephritis: Plan: Complicated UTI, bilateral pyelonephritis w/ recent hx of ESBL Klebsiella - w/ obstruction 03/11 now s/p delivery by c/s. 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 Afrebrile overnight. Multiple recent urine cultures with last 03/09 ESBL Klebsiella, ertapenem/meropenem sensitive Repeat BC pending NGTD BC 04/05 pending, pinpoint growth reaccumulated, multiple floor Last fever 04/06 1515, 38.6. UCx is with multiple suki would still treat to a 7 to 10-day course of therapy given bilateral complicated UTI, leukocytosis, and complicated course with multiple reinfections. Final recommendations to be reviewed with ID 04/09 however patient is progressing well. Anticipate ultrasound-guided peripheral IV 04/09. Repeat renal ultrasound is with no hydronephrosis in the left, interval resolution of prior left pelvic fullness, mild right renal pelvic fullness.? Small left calyx calculus versus renal fat nonobstructive. Overall improved. When fever free x 24 hours and BC negative for at least 24-[address] USPIV. Will need this prior to discharge - Has been on meropenem 1 g every 8 hours due to recurrent infection level of illness and multiple healthcare/hospital exposures; recent isolates were also sensitive to ertapenem. Follow UC to speciation. Discharge home options for outpatient infusion include elastomeric meropenem infusion ball 1 g every 8 hours versus ertapenem 1 g daily. Final recommendations based on course and UC speciation. Anticipate 7 to 10-day total course of therapy via US-PIV. - Meropenem/Ertapenem are category B. May cause some diarrhea/suki change with , RID <1%. First dose IV antibiotics: Meropenem 04/05/2019 PM. 10-day course would be complete 04/15/2024 Urinary retention, resolved Postdelivery/postop urinary retention. Resolved. 38-week Ash is a healthy 23-year-old G1, P0 who presented at 31+1 with acute multidrug-resistant bilateral pyelonephritis without sepsis Case was reviewed with MFM who recommended stabilized with antibiotics and proceeding with induction of labor Was induced however had failure to descend and failed vacuum attempt and subsequently presented to section S/p uncomplicated section 04/06. Development of 1 viable male . COVID No respiratory symptoms, no hypoxia Supportive care Deferred remdesivir, and has minimal/no respiratory symptoms and no hypoxia. Patient had initially deferred a chest x-ray. Inquired whether this would benefit her at this time. She is able to pull 1500 cc by incentive spirometry, does not have shortness of breath, no productive cough, has a downtrending leukocytosis and is afebrile this morning. She has received broad antibiotics is maintained on meropenem and did receive perioperative azithromycin per protocol. Does not show evidence clinically of a superimposed bacterial pneumonia so suspect low utility/low likelihood of change in management based on this and okay to defer. If hypoxia worsening respiratory symptoms or concern for secondary pneumonia rises then order chest x-ray PA/LAT at that time. Would also order MRSA swab at that time. Remains stable with no resp sx 3/2 Electrolyte Abnormalities Magnesium repleted 3/2. Continue p.o, switched to slowmg to minimize renal losses and include calcium supplementation. Extend Mg IV infusions to 1g over 2 hours. Calcium repleted Potassium stable Recent C. difficile positive Risk of immune compromise, multiple infections and it is requiring recurrent broad-spectrum antibiotics. Continue prophylactic vancomycin 125mg PO daily. Extend for 1 week past completion of abx course for complicated UTI No diarrhea sx to date. Did have a C diff sample collected. If negative or Gene+ Toxin- continue PPx dosing. If toxin positive then increase vanco to QID. Anemia, combination of and HILARY H&H slowly downtrending, 9.3. She is not tachycardic, normotensive. Borderline microcytic, MCV 84 with normal RDW Iron panel with transferrin saturation 4% consistent with HILARY even adjusted for reference to 3rd trimester . Ferritin is low (38.4) notable especially as would expenct it to be somewhat elevated as phase reactant in the setting of and recent C/S delivery. Patient would benefit from Venofer at some point however mixed data regarding worsened outcomes in the setting of acute infections with some of this data, and particularly from complicated UTI hospitalizations. Do not feel that the risk outweighs the benefit 3.2. No indication for transfusion currently. Once leuk ocytosis normalizes and patient is clinically well-appearing then would recommend 13x daily Venofer 300 mg infusions either as inpatient or an outpatient in addition to oral iron supplementation - Hgb transfusion threshold of 7.0, or symptomatic Admission and Anticipated Discharge Date Admission Date: April 05, 2024 Subjective Seen at the bedside morning of 04/08. Patient is on phone video chat with her mother Linda, nurse is present at the bedside. Medicine reports that she feels okay does have some postop pain which improves with ordered pain medications that she is not initially aware or available. She does not have any shortness of breath fever or chills. Some tenderness at her abdominal surgical site. No diarrhea. No flank pain. Her urinary retention has resolved and she has been able to void. No chest pain chest pressure lightheadedness or dizziness. Overall progressing well. Does report that she has a history of iron deficiency anemia requiring IV transfusions around 2020. Physical Exam Physical Exam: General: A&Ox3. NAD. Cooperative. HEENT: Atraumatic, normocephalic. Vision and hearing grossly intact. Pulm: Symmetrical chest rise. No increased work of breathing. No respiratory distress. Abdomen: Appropriately postop tenderness. site being followed by primary team, some surrounding bruising. Results & Data Results & Data Vital Signs (Past 12 Hours) Vital Signs Temp Pulse Resp BP Pulse Ox O2 Del Method 04/08/24 04:30 36.4 C L 68 20 120/90 99 Room Air 04/08/24 00:15 36.4 C L 72 18 112/86 99 Room Air PG Care Time/CCT Total # of Minutes Spent Total Time Spent with Patient: Total time spent is greater than 50% in coordination of care (as documented) at patient's floor/unit and/or counseling patient: Coding Level of Care Code 87525 SUB INP/OBS CARE 3/50MIN Diagnoses Pyelonephritis N12
[2024-04-08] MEDS: MAGNESIUM SULFATE / D5W 1 GM/100 ML BAG IV SCH (09:18)
[2024-04-08] MEDS: oxyCODONE HCL IR 5 MG TAB (IMMEDIATE RELEASE) PO PRN (09:21)
[2024-04-08 09:53] LABS: Cdiff Toxin B Gene (2yr or >) Positive Cdiff Gene (Neg)
[2024-04-08 10:19] LABS: Cdiff Antigen Negative; Cdiff Toxin A+B Negative Cdiff Toxin (Negative)
[2024-04-08] MEDS: MAGNESIUM CHLORIDE W/CALCIUM 64MG DELAYED REL TAB PO SCH (10:24)
--- NOTE | 2024-04-08 11:07 | Obstetrical Progress Note ---
Date of Service April 08, 2024 Assessment & Plan (1) care and examination: satisfactory recovery from now has been afebrile since delivery I do not think the redness above the incision is cellulitis- more likely bruising from emergent C/S thankful for hospitalist's input and care will be discharged on IV antibiotic for an additional 7-10days Subjective Ambulation: ambulating normally Voiding: no voiding problems Passing Gas:: Yes Diet Tolerance:: regular diet Lochia:: Small Feeding Type:: breast feeding had last straight cath last evening at 1830- now voiding large amounts from 300 to 600 mls at a time c/o soreness to the right side of the incision otherwise still sore in general from pushing. had a rash and itching yesterday in area of chloraprep application but that has resolved. was also itchy on forearms as well but no rash present Review of Systems All systems reviewed & are unremarkable except as noted in HPI & below Physical Exam Constitutional WD/WN, vitals as above Gastrointestinal (Abdomen) Inspection/Auscultation: + abdominal surgical incision (redness superior to incision well demarcated- incision dry and intact) Psychiatric A+Ox3, euthymic affect Results & Data Vital Signs (Past 12 Hours) Vital Signs Temp Pulse Pulse Resp BP Pulse Ox O2 Del Method 04/08/24 08:53 97.5 F L 86 14 129/84 98 Room Air 04/08/24 04:30 97.5 F L 68 20 120/90 99 Room Air 04/08/24 00:15 97.5 F L 72 18 112/86 99 Room Air
[2024-04-08] MEDS ORDERED: bisacodyL 10 MG SUPP PR PRN (12:34)
[2024-04-08] MEDS: CALCIUM GLUCONATE 1,000 MG/60 ML BAG IV STA (16:02)
[2024-04-08] MEDS: IBUPROFEN 600 MG TAB PO PRN (21:39)
[2024-04-09] MEDS: ACETAMINOPHEN 325 MG TAB PO PRN (00:42)
[2024-04-09 06:36] LABS: Basophils # (auto) 0.05 K/uL (0.00-0.20); Basophils % (auto) 0.4 %; Eosinophils # (auto) 0.35 K/uL (0.00-0.50); Hematocrit (blood only) 31.2 % (37.0-47.0); Hemoglobin 10.3 g/dl (12.0-16.0); Immature Granulocytes # (auto) 0.26 K/uL (0.01-0.20); Immature Granulocytes % (auto) 2.2 %; Lymphocytes # (auto) 2.62 K/uL (1.20-3.40); Lymphocytes % (auto) 22.3 %; Mean Corpuscular Hemoglobin 28.4 pg (25.0-34.0); Mean Platelet Volume 8.9 fL (9.4-12.4); Monocytes % (auto) 5.1 %; Neutrophils # (auto) 7.87 K/uL (1.40-6.50); Nucleated RBC # (auto) 0.02 K/uL (0.00-0.12); Nucleated RBC % (auto) 0.2 %; Platelet Count 489 K/uL (130-400); RDW Coefficient of Variation 13.5 % (11.5-14.5); RDW Standard Deviation 41.9 fL (36.4-46.3); Red Blood Count 3.63 M/uL (4.20-5.40); White Blood Count 11.75 K/ul (4.8-10.8)
--- NOTE | 2024-04-09 06:47 | Obstetrical Progress Note ---
Date of Service April 09, 2024 Assessment & Plan (1) care and examination: C/S incision looks good but bruising above the incision is the issue will send script for percocet for her today OK for discharge from obstetric standpoint- will defer to medicine as to whether she can go home today or tomorrow. Subjective Ambulation: ambulating normally Voiding: no voiding problems Passing Gas:: Yes Diet Tolerance:: regular diet Lochia:: Small Feeding Type:: breast feeding still very sore in her abdomen above the incision- taking oxycodone PRN but it really only hurts when she is trying to get out of bed or a chair. otherwise feels well. Review of Systems All systems reviewed & are unremarkable except as noted in HPI & below Physical Exam Constitutional WD/WN, vitals as above Gastrointestinal (Abdomen) Inspection/Auscultation: + abdominal surgical incision (intact & dry / no induration but ecchymosis superior to incision) Psychiatric A+Ox3, euthymic affect Genitourinary OB Exam Abdomen: + fundal height Fundus: + firm and + relation to umbilicus (2 below) Results & Data Vital Signs (Past 12 Hours) Vital Signs Temp Pulse Resp BP Pulse Ox O2 Del Method 04/09/24 00:45 97.7 F 68 18 126/92 98 Room Air 04/08/24 20:05 98.4 F 88 18 116/78 98 Room Air
[2024-04-09 06:55] LABS: BUN Creatinine Ratio 10.4 (10-20); Calcium 8.7 mg/dl (8.6-10.3); Creatinine Clr Calc Pharmacy 139.1 ml/min; Potassium 4.3 mmol/L (3.5-5.1)
--- NOTE | 2024-04-09 08:35 | Hospitalist Progress Note ---
Date of Service April 09, 2024 Assessment & Plan (1) Pyelonephritis: Plan: Complicated UTI, bilateral pyelonephritis w/ recent hx of ESBL Klebsiella - w/ obstruction 03/11 now s/p delivery by c/s. 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 Multiple recent urine cultures with last 03/09 ESBL Klebsiella, ertapenem/meropenem sensitive Repeat BC pending NGTD BC 04/05 pending, pinpoint growth reaccumulated, multiple floor Last fever 04/06 1515, 38.6. UCx is with multiple suki would still treat given recurrent bilateral complicated UTI, leukocytosis, and complicated course with multiple reinfections. Repeat renal ultrasound is with no hydronephrosis in the left, interval resolution of prior left pelvic fullness, mild right renal pelvic fullness.? Small left calyx calculus versus renal fat nonobstructive. Overall improved. Reviewed with ID final recommendation as below: Switched to ertapenem to complete course of treatment. First dose of appropriate antibiotics was meropenem 04/05/2024 in the evening. Complete 7 days of treatment on 04/12/2024 with ertapenem [address] ultrasound-guided PIV 04/10/2024 prior to discharge - Meropenem/Ertapenem are category B. May cause some diarrhea/suki change with , RID <1%. Urinary retention, resolved Postdelivery/postop urinary retention. Resolved. 38-week [place] is a healthy 23-year-old G1, P0 who presented at 31+1 with acute multidrug-resistant bilateral pyelonephritis without sepsis Case was reviewed with MFM who recommended stabilized with antibiotics and proceeding with induction of labor Was induced however had failure to descend and failed vacuum attempt and sub sequently presented to section S/p uncomplicated section 04/06. Development of 1 viable male infant. COVID No respiratory symptoms, no hypoxia Supportive care Deferred remdesivir, and has minimal/no respiratory symptoms and no hypoxia. Patient had initially deferred a chest x-ray. Inquired whether this would benefit her at this time. She is able to pull 1500 cc by incentive spirometry, does not have shortness of breath, no productive cough, has a downtrending leukocytosis and is afebrile this morning. She has received broad antibiotics is maintained on meropenem and did receive perioperative azithromycin per protocol. Does not show evidence clinically of a superimposed bacterial pneumonia so suspect low utility/low likelihood of change in management based on this and okay to defer. If hypoxia worsening respiratory symptoms or concern for secondary pneumonia rises then order chest x-ray PA/LAT at that time. Would also order MRSA swab at that time. Remains stable with no resp sx 04/08 Electrolyte Abnormalities Magnesium repleted 04/08. Patient was switched to extended magnesium IV infusions and Slow-Mag to minimize renal losses, magnesium is normal and stable on 04/09. Continue Slow-Mag supplementation with outpatient recheck in 1 week. Potassium and calcium levels have stabilized and also remain normal Recent C. difficile positive Risk of immune compromise, multiple infections and it is requiring recurrent broad-spectrum antibiotics. Continue prophylactic vancomycin 125mg PO daily. Extend for 1 week past completion of abx course for complicated UTI No diarrhea sx to date. Did have a C diff sample collected. Patient is C. difficile gene positive and toxin negative. Gene PCR positive is unsurprising given recent symptomatic severe C. difficile however she clinically does not have C. difficile diarrhea and remains toxin negative. Continue vancomycin 125 mg p.o. daily prophylaxis extended for 1 week past completion of her UTI antibiotics (last day of vancomycin 04/19/2024). If clinical worsening diarrhea develops then retest for toxin, and would increase to 4 times daily only at that time Anemia, combination of and HILARY H&H slowly downtrending, 9.3. She is not tachycardic, normotensive. Borderline microcytic, MCV 84 with normal RDW Iron panel with transferrin saturation 4% consistent with HILARY even adjusted for reference to 3rd trimester . Ferritin is low (38.4) notable especially as would expenct it to be somewhat elevated as phase reactant in the setting of and recent C/S delivery. Patient would benefit from Venofer at some point however mixed data regarding worsened outcomes in the setting of acute infections with some of this data, and particularly from complicated UTI hospitalizations. Do not feel that the risk outweighs the benefit currently. No indication for transfusion currently. Once leukocytosis normalizes and patient is clinically well-appearing then would recommend 13x Venofer 300 mg infusions. This can be done as an outpatient. Continue oral iron supplementation in the meantime. - Hgb transfusion threshold of 7.0, or symptomatic Hemoglobin is spontaneously uptrending 10.3 on 04/09 Admission and Anticipated Discharge Date Admission Date: April 05, 2024 Subjective No overnight events Some postoperative abdominal discomfort, surrounding C/section site is with some bruising but no acute concerns. No warmth/erythema/dehiscence Afebrile overnight Continues to have intermittent slightly loose bowel movements but she does not have increased frequency of bowel movements and they are not liquid Breathing comfortably, no cough/shortness of breath/dyspnea. Physical Exam Physical Exam: General: A&Ox3. NAD. Cooperative. HEENT: Atraumatic, normocephalic. Vision and hearing grossly intact. Pulm: Symmetrical chest rise. No increased work of breathing. No respiratory distress. Abdomen: Appropriate postop tenderness at C/section site. Incision is clean/dry and well-healing. Surgical glue is intact. No erythema/warmth/dehiscence. Abdomen does not have rebound/guarding Results & Data Results & Data Vital Signs (Past 12 Hours) Vital Signs Temp Pulse Resp BP Pulse Ox O2 Del Method 04/09/24 00:45 36.5 C 68 18 126/92 98 Room Air PG Care Time/CCT Total # of Minutes Spent Total Time Spent with Patient: Total time spent is greater than 50% in coordination of care (as documented) at patient's floor/unit and/or counseling patient: Coding Level of Care Code 12570 SUB INP/OBS CARE 50MIN Diagnoses Pyelonephritis N12
--- NOTE | 2024-04-09 09:01 | Infectious Disease Progress Nt ---
Date of Service April 09, 2024 Assessment & Plan (1) Infection of drug-resistant bacteria: (2) 38 weeks gestation of : (3) Term : Plan 23-year-old female 1, para 0, 38 weeks gestation with a past medical history of recurrent ESBL Klebsiella pneumoniae UTIs, recently admitted to [facility] 03/10/24-03/11/24 for sepsis secondary to bilateral pyelonephritis with mild hydronephrosis and C. difficile infection. She was started on ertapenem and oral vancomycin. Was transferred to [facility] and followed by Maternal medicine. There she was evaluated by infectious disease and was discharged 03/14 on a 14-day course of ertapenem 1 g IV daily as well as a 14-day course of oral vancomycin 125 mg p.o. every 6 hours. She did well and completed her scheduled antibiotics. On 04/05/2024, she presents to the [facility] ED with acute onset left flank pain and low-grade temperatures at home. 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 She has been evaluated by [employer] and medicine consult. They reached out to [facility] at [place] regarding need for transfer back to a tertiary care center for further evaluation and management. It was recommended that she remain locally for IV antibiotics with plan for induction and delivery. On admission temperature 36.8, pulse 105, RR 16, O2 sats 99% on room air. Labs notable for: WBC 15.07, potassium 3.1, BUN 5, creatinine 0.58, magnesium 1.5, AST 9, ALT 7, alk phos 188, procalcitonin 0.09. Urinalysis with trace blood, 3+ leukocyte esterase,> 50 WBC, 2+ bacteria. COVID testing positive. Renal US shows mild bilateral hydronephrosis with possible urothelial thickening. Nonobstructing bilateral nephrolithiasis. ID consulted for Pyelonephritis in and H/o ESBL infection. She is currently in the ED and received a dose of Meropenem. Current microbiology: Blood culture 04/05 NGTD Urine culture 04/05 more than 3 organisms present, all moderate counts mixed probable skin suki Prior microbiology: Urine culture 01/10/2024 ESBL Klebsiella pneumoniae (S amox/Clav, ertapenem, Levaquin, meropenem, nitrofurantoin, pip-tazo) Urine culture 01/30/2024 ESBL Klebsiella pneumoniae (S amox/Clav, cefoxitin, ertapenem, Levaquin, meropenem, nitrofurantoin, pip-tazo) Urine culture 02/22/2024 ESBL Klebsiella pneumoniae (S amox-clav, cefoxitin, ertapenem, Levaquin, meropenem, nitrofurantoin, pip-tazo Urine culture 03/09/2024 ESBL Klebsiella pneumoniae(S amox-clav, cefoxitin, ertapenem, Levaquin, meropenem, nitrofurantoin, pip-tazo Blood culture 03/09/2024 1/4 bottles ESBL Klebsiella pneumoniae Urine culture 03/20/2024 20K Pamela albicans Group B strep vaginal culture 03/21/2024 no group B strep isolated # Complicated UTI/ Possible pyelonephritis in # Mild bilateral hydronephrosis # Recent ESBL Klebsiella pneumoniae sepsis with bacteremia 2/2 Pyelonephritis during ,03/09/2024 # History of recurrent ESBL Klebsiella pneumoniae UTI during # History of C diff infection, 03/09/2024 # COVID 19 positive testing, 04/05/2024 Discussion- In the setting of pyuria/bacteriuria, left flank pain, leukocytosis , tachycardia, h/o ESBL infection, started treatment for possible ESBL Klebsiella pyelonephritis. Started w/ a broader carbapenem--> meropenem as the patient has had multiple healthcare exposures in the last 2 months. Regarding positive COVID testing, per discussion with team, patient does not seem to have respiratory symptoms. She did have fevers. This may be secondary to a urinary source or COVID. She is not requiring supplemental oxygen. She is , so if symptomatic recommended 5 d of paxlovid 400 mg po q12h or 3 d of Remdesivir IV (200 mg once then 100 mg IV daily for 2 d). Per chart review, patient declined. Repeat renal US on 04/08 with mild R renal pelvic fullness (interval regression compared to prior) and no hydronephrosis in the L, interval resolution of prior L pelvic fullness. Pt is without diarrhea, continuing on C diff ppx. Recommendations - Can transition to ertapenem 1 g IV q24h to complete a 7 day course on 04/11 - Continue vancomycin 125 mg PO daily prophylaxis while on antibiotics and for 7 days after completion of antibiotics Discussed with Dr. Joe. Will sign off. Admission and Anticipated Discharge Date Admission Date: April 05, 2024 Subjective This patient recommendation is based on a telemedicine consult request which was completed asynchronously through chart review and information provided by the primary physician. The patient was not seen or examined today. The evaluation is consultative in nature and all patient care and treatment decisions can either be accepted or rejected by the patient's primary hospital-based treating physician using their own independent medical judgment for their patient. Time Spent Reviewing Chart: 21 - 30 minutes WBC 11.75 No acute events Results & Data Vital Signs (Past 12 Hours) Vital Signs Temp Pulse Pulse Resp BP Pulse Ox O2 Del Method 04/09/24 08:46 36.6 C 79 16 132/84 98 Room Air 04/09/24 08:46 Room Air 04/09/24 00:45 36.5 C 68 18 126/92 98 Room Air Laboratory Results Short CBC 04/09/24 Range/Units 06:10 WBC 11.75 H (4.8-10.8) K/ul Hgb 10.3 L (12.0-16.0) g/dl Hct 31.2 L (37.0-47.0) % Plt Count 489 H (130-400) K/uL BMP 04/09/24 06:10 Sodium 141 Potassium 4.3 Chloride 106 Carbon Dioxide 27 BUN 7 Creatinine 0.67 Glucose 81 Calcium 8.7 Diagnostic Findings Renal Ultrasound 04/08/24 09:00 EXAM: US renal/blad retro comp CLINICAL HISTORY: Re-eval for hydro/obstruction resolution post c/s TECHNIQUE: Ultrasound of the kidneys and urinary bladder performed in greyscale and Doppler imaging. COMPARISON: 04/05/2023 Ultrasound. FINDINGS: Kidneys: The right kidney measures 10.10 in length The left kidney measures 13.0 cm in length A 0.65 cm echogenic focus is seen in the right superior calyx, may represent a calculus. The previously noted probable calculus in the middle calyx is no longer visualized. A 0.3 cm tiny echogenic focus in the left middle calyx, may represent a calculus or a renal fat. Mild right renal pelvic fullness, interval regression when compared to prior. No hydronephrosis in the left, interval resolution of the prior left pelvic fullness. No cyst or masses were identified. Renal parenchymal echogenicity is normal. Cortical thickness: Within normal. Urinary bladder: Fully-disteneded. Unremarkable. IMPRESSION: 1. A 0.65 cm echogenic focus in the right superior calyx, may represent a calculus. The previously noted probable calculus in the middle calyx is no longer visualized. 2. A 0.3 cm tiny echogenic focus in the left middle calyx, may represent a calculus or a renal fat. (new) 3. Mild right renal pelvic fullness, interval regression when compared to prior. 4. No hydronephrosis in the left, interval resolution of the prior left pelvic fullness. No cyst or masses were identified. Electronically signed by Taniya Dumas 04-08-2024 01:47 AM Medications Administered Current Inpatient Medications Acetaminophen (Acetaminophen 325 Mg Tab) 650 mg PO Q6H PRN PRN Reason: Pain Stop: 05/08/24 18:33 Last Admin: 04/09/24 00:42 Dose: 650 mg Benzocaine (Benzocaine 20% [place] 85 Appln/85 Gm Can) 1 appln EXT UD PRN PRN Reason: use on skin as needed Stop: 05/06/24 12:33 Last Admin: 04/06/24 13:39 Dose: 1 appln Bisacodyl (Bisacodyl 10 Mg Supp) 10 mg NC PRN PRN PRN Reason: Constipation Stop: 05/08/24 12:33 Calcium Carbonate (Calcium Carbonate 500 Mg Chewable Tab) 1,000 mg PO Q8H PRN PRN Reason: Indigestion Stop: 05/05/24 16:18 Calcium Carbonate (Calcium Carbonate 500 Mg Chewable Tab) 1,500 mg PO Q2H PRN PRN Reason: Indigestion/Heartburn Stop: 05/06/24 12:33 Mckeon Syrup (Mckeon Syrup 5 Ml Udp) 5 ml PO DAILY DOROTHEA Stop: 04/16/24 15:59 Last Admin: 04/09/24 08:18 Dose: 5 ml Diphenhydramine HCl (Diphenhydramine Capsule 25 Mg Cap) 25 mg PO QID PRN PRN Reason: Itching Stop: 05/07/24 07:38 Diphenhydramine HCl (Diphenhydramine 50 Mg/Ml Vial) 25 mg IV QID PRN PRN Reason: Itching Stop: 05/07/24 07:38 Docusate Sodium (Docusate Sodium 100 Mg Cap) 100 mg PO DAILY@08,21 [facility] Stop: 05/06/24 20:59 Last Admin: 04/09/24 08:19 Dose: 100 mg Ferrous Sulfate (Ferrous Sulfate 325 Mg Tab) 325 mg PO DAILY@08 [facility] Stop: 05/07/24 07:59 Last Admin: 04/09/24 08:19 Dose: 325 mg Hydrocortisone (Hydrocortisone Acetate 25 Mg Supp) 25 mg NC BID PRN PRN Reason: Hemorrhoids Stop: 05/06/24 12:33 Hydrocortisone (Hydrocortisone 2.5% Cr 30 Gm Tube) 1 appln EXT Q6H PRN PRN Reason: Itching Stop: 05/07/24 16:09 Last Admin: 04/07/24 17:05 Dose: 90 appln Hydromorphone HCl (Hydromorphone Inj 0.5 Mg/0.5 Ml Syr) 0.25 - 0.5 mg IV Q2H PRN PRN Reason: SEVERE Pain (7,8,9,10) Stop: 04/21/24 07:38 Oxytocin (Pitocin 30 Units/Nss) 30 units in 500 mls @ 333.333 mls/hr IV .Q1H30M PRN; Protocol PRN Reason: Bleeding Control Stop: 05/05/24 16:00 Meropenem 1,000 mg/ Syringe 20 mls @ 2 mls/min IV Q8H [facility] Stop: 04/12/24 16:59 Last Admin: 04/09/24 00:59 Dose: 2 mls/min Acetaminophen (Ofirmev) 1,000 mg in 100 mls @ 400 mls/hr IV Q8H PRN PRN Reason: Pain Stop: 04/09/24 13:38 Promethazine HCl (Phenergan) 12.5 mg in 50.5 mls @ 202 mls/hr IV Q4H PRN PRN Reason: Nausea And Vomiting Stop: 05/07/24 07:38 Ibuprofen (Ibuprofen 600 Mg Tab) 600 mg PO Q6H PRN PRN Reason: Pain Stop: 05/08/24 12:33 Last Admin: 04/09/24 08:19 Dose: 600 mg Ketorolac Tromethamine (Ketorolac 30 Mg/Ml Vial) 30 mg IV Q6H PRN PRN Reason: Pain Stop: 04/11/24 13:38 Lidocaine HCl (Lidocaine 1% Local 20 Ml Vial) 20 ml INFIL ONCE PRN PRN Reason: Perineal/vaginal Repair Stop: 05/05/24 16:00 Magnesium Chloride (Magnesium Chloride W/Calcium 64mg Delayed Rel Tab) 64 mg PO BID DOROTHEA Stop: 05/08/24 08:59 Last Admin: 04/09/24 08:19 Dose: 64 mg Magnesium Hydroxide (Magnesium Hydroxide Susp 30 Ml Udc) 30 ml PO HS PRN PRN Reason: Constipation Stop: 05/06/24 12:33 Ondansetron HCl (Ondansetron Inj 2 Mg/Ml 2 Ml Vial) 4 mg IV Q6H PRN PRN Reason: Nausea And Vomiting Stop: 05/07/24 07:38 Oxycodone HCl (Oxycodone Hcl Ir 5 Mg Tab (Immediate Release)) 5 - 10 mg PO Q3H PRN PRN Reason: MODERATE-SEVERE Pain Stop: 04/21/24 07:38 Last Admin: 04/09/24 08:19 Dose: 5 mg Prenat Multivit/[employer] Worker/Iron/Folic Ac ( Vitamin 1 Tab) 1 tab PO DAILY@08 [facility] Stop: 05/07/24 07:59 Last Admin: 04/09/24 08:19 Dose: 1 tab Sennosides (Senna 8.6 Mg Tab) 17.2 mg PO HS PRN PRN Reason: Constipation Stop: 05/06/24 12:33 Simethicone (Simethicone 80 Mg Chew) 80 mg PO DAILY@08,13,17,21 DOROTHEA Stop: 05/06/24 12:59 Last Admin: 04/09/24 08:19 Dose: 80 mg Vancomycin HCl (Vancomycin Hcl 125 Mg/2.5ml Soln) 125 mg PO DAILY DOROTHEA Stop: 05/06/24 15:59 Last Admin: 04/09/24 08:18 Dose: 125 mg
[2024-04-09 09:04] LABS: Magnesium 1.8 mg/dl (1.7-2.4)
[2024-04-09] MEDS: ERTAPENEM 1000MG 1,000 MG/10 ML SYR IV SCH (15:51)
--- NOTE | 2024-04-10 06:55 | Obstetrical Progress Note ---
Date of Service April 10, 2024 Assessment & Plan (1) care and examination: Plan: - POD#1 s/p pLTCS at 38+ wga - AFVSS - Rh+, gbs neg, ri - Continue routine care, bladder scan & straight cath as needed, work on ambulation, progress diet as tolerated - cleared to be discharged on OB side, defer discharge to medicine team - followup with Dr. Calderon in 6wks (2) Pyelonephritis: Plan: - Continue ertapenem - Follow blood cx, NG in 48hrs - Repeat renal US / vs 3/ per hospitalist team - Being followed by hospitalist team & ID; plan to place PIV before d/c for completion of abx, CM aware (3) COVID: Plan: - tested +ve 04/05 - currently afebrile, satting well on RA, lungs CTAB - continue supportive care Admission and Anticipated Discharge Date Admission Date: April 05, 2024 Supervising Physician Co-Signing Physician Notes Resident Physician Supervision Note: I interviewed and examined the patient. Discussed with Dr. Mcfarland and agree with findings and plan as documented in the note. Any exceptions or clarifications are listed here: POD4 s/p pCS after arrest of descent iol for pyelo. Feeling well, VSS, exam benign and wnl. Incision c/d/i. Plan for dc home today after medicine planned IV insertion and antibx Documented By: Dee Jean-Baptiste MD Subjective 23yo day 4 s/p csection; complicated by pyelonephritis and +COVID Feeling well today, mainly pain in RLQ due to surgical trauma. Ambulating well. Voiding w/ BM and passing gas. Lochia small. Tolerating food well. Breast and bottle feeding, no concerns at this time Denies other concerning sx. Physical Exam Physical Exam: Constitutional: WD/WN, vitals as above GI/Abd: surgical incision healing well with no swelling or erythema; tenderness to palpation of RLQ - fundus firm, 1fw- of umbilicus Psychiatric: A+Ox3, euthymic affect Results & Data Vital Signs (Past 12 Hours) Vital Signs Temp Pulse Resp BP Pulse Ox O2 Del Method 04/10/24 00:28 36.7 C 88 18 107/75 99 Room Air 04/09/24 19:00 36.6 C 83 20 123/95 98 Room Air Resident Activity Tracking Resident Involvement: Resident Care Provided Care Provided: OB Delivery
[2024-04-10 07:25] LABS: Basophils # (auto) 0.07 K/uL (0.00-0.20); Basophils % (auto) 0.7 %; Eosinophils # (auto) 0.31 K/uL (0.00-0.50); Eosinophils % (auto) 2.9 %; Hematocrit (blood only) 31.2 % (37.0-47.0); Hemoglobin 10.2 g/dl (12.0-16.0); Immature Granulocytes # (auto) 0.39 K/uL (0.01-0.20); Immature Granulocytes % (auto) 3.6 %; Lymphocytes # (auto) 2.54 K/uL (1.20-3.40); Lymphocytes % (auto) 23.7 %; Mean Corpuscular Hemoglobin 28.2 pg (25.0-34.0); Mean Corpuscular Hgb Conc 32.7 g/dL (32.0-36.0); Mean Corpuscular Volume 86.2 fL (80.0-100.0); Mean Platelet Volume 8.8 fL (9.4-12.4); Monocytes # (auto) 0.45 K/uL (0.11-0.59); Monocytes % (auto) 4.2 %; Neutrophils # (auto) 6.94 K/uL (1.40-6.50); Neutrophils % (auto) 64.9 %; Platelet Count 521 K/uL (130-400); RDW Coefficient of Variation 13.3 % (11.5-14.5); RDW Standard Deviation 41.3 fL (36.4-46.3); Red Blood Count 3.62 M/uL (4.20-5.40)
[2024-04-10 07:30] LABS: BUN Creatinine Ratio 14.3 (10-20); Calcium 8.7 mg/dl (8.6-10.3); Creatinine Clr Calc Pharmacy 190.2 ml/min; Magnesium 1.8 mg/dl (1.7-2.4)
[2024-04-10 09:18] VITALS: RESP 22; TEMP 98.4; O2SAT 98
--- NOTE | 2024-04-10 09:54 | Hospitalist Progress Note ---
Date of Service April 10, 2024 Assessment & Plan (1) Pyelonephritis: Plan: Doing well. Stable for discharge. Final dc recs as follows: 1. Place PIV. Ertapenem 1g daily to complete 7 day course of abx 04/12/24. Weekly CBC/BMP to be followed by PCP. Followup with PCP within 1 week. 2. Continue vancomycin 125 mg p.o. daily prophylaxis extended for 1 week past completion of her UTI antibiotics (last day of vancomycin 04/19/2024). If clinical worsening diarrhea develops then retest for toxin, and would increase to 4 times daily only at that time 3. Followup outpatient for venofer infusion. Until then continue vitamin in AM, and iron polysaccarhide oral supplement in evening. Use miralax PRN for constipation 4. Continue magnesium oxide daily supplementation Medicine will sign off. Please reconsult for any questions or changes in status. Complicated UTI, bilateral pyelonephritis w/ recent hx of ESBL Klebsiella - w/ obstruction 03/11 now s/p delivery by c/s. 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 UCx is with multiple suki would still treat given recurrent bilateral complicated UTI, leukocytosis, and complicated course with multiple reinfections. Repeat renal ultrasound is with no hydronephrosis in the left, interval resolution of prior left pelvic fullness, mild right renal pelvic fullness.? Small left calyx calculus versus renal fat nonobstructive. Overall improved. Reviewed with ID final recommendation as below: Switched to ertapenem to complete course of treatment. First dose of appropriate antibiotics was meropenem 04/05/2024 in the evening. Complete 7 days of treatment on 04/12/2024 with ertapenem 1 g daily ultrasound-guided PIV pending - Meropenem/Ertapenem are category B. May cause some diarrhea/suki change with , RID <1%. Urinary retention, resolved Postdelivery/postop urinary retention. Resolved. 38-week Ash is a healthy 23-year-old G1, P0 who presented at 31+1 with acute multidrug-resistant bilateral pyelonephritis without sepsis Case was reviewed with MFM who recommended stabilized with antibiotics and proceeding with induction of labor Was induced however had failure to descend and failed vacuum attempt and subsequently presented to section S/p uncomplicated section 04/06. Development of 1 viable male . COVID No respiratory symptoms, no hypoxia Supportive care Deferred remdesivir, and has minimal/no respiratory symptoms and no hypoxia. Patient had initially deferred a chest x-ray. Inquired whether this would benefit her at this time. She is able to pull 1500 cc by incentive spirometry, does not have shortness of breath, no productive cough, has a downtrending leukocytosis and is afebrile this morning. She has received broad antibiotics is maintained on meropenem and did receive perioperative azithromycin per protocol. Does not show evidence clinically of a superimposed bacterial pneumonia so suspect low utility/low likelihood of change in management based on this and okay to defer. If hypoxia worsening respiratory symptoms or concern for secondary pneumonia rises then order chest x-ray PA/LAT at that time. Would also order MRSA swab at that time. Remains stable with no resp sx 3/2 Electrolyte Abnormalities Magnesium, Potassium stable x2 days. Continue outpatient oral Mg supplementation. Recent C. difficile positive Risk of immune compromise, multiple infections and it is requiring recurrent broad-spectrum antibiotics. Continue prophylactic vancomycin 125mg PO daily. Extend for 1 week past completion of abx course for complicated UTI No diarrhea sx to date. Did have a C diff sample collected. Patient is C. difficile gene positive and toxin negative. Gene PCR positive is unsurprising given recent symptomatic severe C. difficile however she clinically does not have C. difficile diarrhea and remains toxin negative. Continue vancomycin 125 mg p.o. daily prophylaxis extended for 1 week past completion of her UTI antibiotics (last day of vancomycin 04/19/2024). If clinical worsening diarrhea develops then retest for toxin, and would increase to 4 times daily only at that time Anemia, combination of and HILARY H&H slowly downtrending, 9.3. She is not tachycardic, normotensive. Borderline microcytic, MCV 84 with normal RDW Iron panel with transferrin saturation 4% consistent with HILARY even adjusted for reference to 3rd trimester . Ferritin is low (38.4) notable especially as would expect it to be somewhat elevated as phase reactant in the setting of and recent C/S delivery. Patient would benefit from Venofer at some point however mixed data regarding worsened outcomes in the setting of acute infections with some of this data, and particularly from complicated UTI hospitalizations. Do not feel that the risk outweighs the benefit currently. No indication for transfusion currently. Once leukocytosis normalizes and patient is clinically well-appearing then would recommend 13x Venofer 300 mg infusions. This can be done as an outpatient. Continue oral iron supplementation in the meantime. - Hgb transfusion threshold of 7.0, or symptomatic Hemoglobin is spontaneously uptrending 10.3 on 04/09 Admission and Anticipated Discharge Date Admission Date: April 05, 2024 Subjective Seen at bedside. Feels well. No overnight events. Afebrile. Pending P-IV placement. Doing well, feels ready for return home Physical Exam Physical Exam: General: A&Ox3. NAD. Cooperative. HEENT: Atraumatic, normocephalic. Vision and hearing grossly intact. Pulm: Symmetrical chest rise. No increased work of breathing. No respiratory distress. Results & Data Results & Data Vital Signs (Past 12 Hours) Vital Signs Temp Pulse Resp BP Pulse Ox O2 Del Method 04/10/24 09:00 36.9 C 93 H 22 131/93 98 Room Air 04/10/24 00:28 36.7 C 88 18 107/75 99 Room Air PG Care Time/CCT Total # of Minutes Spent Total Time Spent with Patient: Total time spent is greater than 50% in coordination of care (as documented) at patient's floor/unit and/or counseling patient: Coding Level of Care Code 57993 SUB INP/OBS CARE 3/50MIN Diagnoses Pyelonephritis N12
[2024-04-10 11:10] VITALS: BP 121/79; PULSE 68
--- NOTE | 2024-04-12 10:55 | Discharge Summary ---
Date of Service April 12, 2024 Admission HPI Per Admitting Provider Rae is a 23-year-old currently at 38 weeks 1 day gestational age presented to the ED with acute recurrent multidrug-resistant polynephritis. Noted acute onset flank pain and low-grade fever today. Has been afebrile in the ED and had a notable white count of 15,000. UA was positive for 2+ bacteria and leukocyte esterase. I discussed Rae's presentation with maternal- medicine at [place] where she was last admitted for the urosepsis. Discussed the noted reoccurrence at 38 weeks gestational age. [facility] MFM recommended stabilizing for at least 12 hours afebrile on antibiotics and then proceeding with delivery via induction of labor. I discussed recommendation with Rae who is agreeable with plan. Medicine consulted for acute management of pyelonephritis. Discussed with medicine the possibility of transfer if she was noted to acutely decompensate and become severely septic while on antibiotics. 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 Diff in OB labs: OB Labs: Blood Type O Positive 09/26/23 Antibody Screen NEGATIVE 09/26/23 Hgb 11.2 g/dl (12.0-16.0) L 03/20/24 Hct 33.0 % (37.0-47.0) L 03/20/24 MCV 84.2 fL (80.0-100.0) 03/20/24 Plt Count 402 K/uL (130-400) H 03/20/24 VZV IgG Antibody <135.00 Index (>=165.00) L 07/21/20 Rubella IgG Antibody Immune (Immune) 09/26/23 Treponema pallidum Ab Negative (Negative) 03/09/24 Hep Bs Antigen Negative (Negative) 09/26/23 Hepatitis C Antibody Negative (Negative) 09/26/23 Hepatitis C Ab (EIA) NON-REACTIVE (NON-REACTIVE) 06/17/21 HIV 1&2 Ab/P24 Ag 4thGn Negative (Negative) 09/26/23 Glucose 1 Hr 50 gm 238 mg/dl (70-130) H 10/25/24 OB Optional Labs: Chlamydia trachomatis RNA Not Detected (NotDetected) 09/07/23 Neisseria gonorrhoeae RNA Not Detected (NotDetected) 09/07/23 Thyroid Stimulating Hormone (TSH) 1.500 uIu/ml (0.300-4.500) 01/26/23 Admission Exam (Per Admitting) Constitutional WD/WN, vitals as above Gastrointestinal (Abdomen) Inspection/Auscultation: + abdominal surgical incision (intact & dry / no induration but ecchymosis superior to incision) Psychiatric A+Ox3, euthymic affect Genitourinary OB Exam Abdomen: + fundal height Discharge Data Consultations 04/05/24 10:46 Consult Hospitalist Routine 04/05/24 11:47 Consult Anesthesiology Stat 04/05/24 11:54 Consult Infectious Diseases Stat Procedures Performed Operation Date: 04/06/24 11:20 Actual Procedures p Section in LD; Live male child at 1157 in Main OR 1 (Bilateral) - Ronel Calderon MD, FACOG Hospital Course (1) care and examination: - POD#1 s/p pLTCS at 38+ wga - AFVSS - Rh+, gbs neg, ri - Continue routine care, bladder scan & straight cath as needed, work on ambulation, progress diet as tolerated - cleared to be discharged on OB side, defer discharge to medicine team - followup with Dr. Calderon in 6wks (2) Pyelonephritis: - Continue ertapenem - Follow blood cx, NG in 48hrs - Repeat renal US / vs 3/ per hospitalist team - Being followed by hospitalist team & ID; plan to place PIV before d/c for co mpletion of abx, CM aware (3) COVID: - tested +ve 04/05 - currently afebrile, satting well on RA, lungs CTAB - continue supportive care Discharge Plan Discharge Items Patient Disposition: Home - Self-Care Reason For Visit: ACUTE TREATMENT OF PYELONEPHRITIS AND IOL Discharge Diagnosis: acute pyelonephritis low transverse section Activity: Per Instructions section Non-emergency contact: Letterer Call non-emergency contact if: your pain is concerning for you, your temperature is above 101, your wound has increased redness, your wound has increased drainage and your wound pain has increased Follow-up/Referrals: Peter Bay CRNP [Primary Care Provider] - Diet: Regular Addtl Attending Provider Instructions: ACTIVITY RECOMMENDATIONS: * Gradual return to full activity over the next 2-3 weeks. * No lifting - nothing heavier than baby over the next 2-3 weeks. * Do not engage in vigorous exercise, sexual activity or sports until cleared by your physician. * Do not drive or operate any motorized equipment until cleared by your physician. * You may shower/bathe daily. MEDICATIONS: For discomfort or pain, you may use Acetaminophen (Tylenol), Ibuprofen (Advil), or Naproxen (Aleve) following the package directions. For constipation you may use Colace following the package directions. BREAST CARE: If you are not breast feeding: * Wear a supportive bra 24 hours a day for one to two weeks. * Avoid stimulating your breasts and nipples as much as possible during the first few weeks after delivery. * When taking a shower, have the warm water hit your back, not breasts. * When your breasts feel full, apply ice packs. Usually three to four times a day helps ease the discomfort. * Take a mild pain medication (Tylenol / Motrin) when you are uncomfortable. If breast feeding: * Use breast milk to lubricate nipples. Lansinoh cream may be used for sore nipples. You do not need to remove cream prior to breast feeding. If using a different brand of cream, check the label for directions regarding removal of cream prior to nursing. * Wear a supportive bra. * If having problems with breasts or breast feeding, call a economic consultant or your health care provider. SPECIAL CARE INSTRUCTIONS: When you are discharged from the hospital, it is important for you to follow the instructions listed below: * During the first week at home, you should be able to care for yourself and your baby. In addition, the usual light household activities are encouraged. * Limit your activities to the way you feel. Do not try to clean the house or move furniture. Be sensible. * If you actively engage in sports and have done so up until the time of your delivery, you may resume these activities as soon as you feel able. This may take up to one month or even longer. Use good judgment. * Continue to take your vitamins for at least six weeks after the of your baby. * Your diet need not be limited unless you were on a special diet before your delivery. Breast-feeding mothers need around 2500 calories per day and at least 64-80 ounces of fluid per day (8 to 10 glasses). * You should eat foods from the four major food groups. Crash diets or fad diets are to be avoided. Eating lean meats, fresh fruits and vegetables, low-fat dairy products, high fiber foods and a regular exercise program, will help you get back to your pre- weight without putting your health at risk. * Constipation is sometimes a problem after delivery. Take a mild laxative as needed. If breast feeding, Milk of Magnesia is acceptable to use. You may use a suppository or Fleets enema. * A daily shower or tub bath is suggested. Wash incision daily with warm soapy water and pat dry. It doesn't need to be covered unless drainage is present. * A bloody vaginal discharge will usually continue until around four weeks . A small amount of bleeding may continue for as long as six weeks. Vaginal discharge changes from the bright red bleeding after delivery to pink then brownish and finally yellowish-pink before becoming white and disappearing. * Bleeding may increase with activity. Your first period may come in 4-8 weeks. If you are breast feeding, your period may be delayed even longer. * Kaloko (sex) can begin whenever both you and your partner feel comfortable and do not have any form of genital infection. It is recommended that you wait at least six weeks for internal and external healing to occur. If you have questions, please talk to your health care practitioner. A condom should be used to prevent infection and . * Foreplay, gentle intercourse and lubrication is very important the first several times to prevent pain. A water-based lubricant such as K-Y jelly or Astroglide may be used. * If you have RH negative blood and your baby is RH positive, you will receive RHOGAM by injection prior to discharge. The nurse will give you a card to keep with you that has the date and place that you received RHOGAM after delivery. * During your care, you had a Rubella screen done to check for the presence of rubella antibodies in your blood. If your test was negative, you will receive a Rubella vaccine prior to discharge. This vaccine may cause a fever, soreness at the injection site and flu-like symptoms. If these symptoms persist, notify your health care practitioner. is not advised for one month after a Rubella vaccine. * Verbalizes understanding of car seat law as reviewed with patient nursing. * Car Seat hand-out given and reviewed with patient by nursing. * Shaken baby information reviewed with patient by nursing. Call you doctor if: * Heavy bleeding (saturating several pads an hour) or passing clots the size of your fist. * A fever >101 degrees F (38.3 degrees C) on two occasions four hours apart and/or chills. * Unusual pain in the pelvic or vaginal areas. * Call the doctor for any increased redness, drainage or swelling around the incision and any pain unrelieved by prescribed pain medication. * "Baby Blues" lasting longer than two weeks. If you have any questions or concerns, call your health care practitioner at . FOLLOW UP VISIT: * Please call the office at to schedule a 6 week examination. It is important you keep this appointment. It is important for you to make arrangements for either yearly or twice yearly check-ups thereafter. Addtl Film Waxer Provider Instructions: You have been prescribed an IV antibiotic to complete a course of treatment for a resistant UTI. You have been prescribed ertapenem 1 g to be taken daily. Please take her to panama 1 g daily by peripherally guided IV with her last dose on 04/12/2024. Your peripheral IV can then be removed by outpatient clinical staff. Due to your recent C. difficile infection you have been prescribed a preventative dose of vancomycin. Please take vancomycin 125 mg by mouth once daily. If you have worsening liquid diarrhea please seek reevaluation from your primary care doctor and retesting for C. difficile toxin, if you develop clinical C. difficile disease this may need to be increased to a more frequent dosing or switch to a medication called Dificid. This was not indicated at time of discharge. Your iron levels were noted to be very low during admission. Please follow-up for outpatient iron infusions with your primary care physician. Please continue to take a multivitamin with iron in the morning, and you have been prescribed an additional iron supplement iron polysaccharide but you may take in the evening once daily. Iron supplementation can cause constipation, if you have difficulties with hard bowel movements/constipation try taking MiraLAX [id number] daily, and if continued to have issues please talk to your primary care provider for additional recommendations If you develop any new or worsening symptoms including fever, chills, sweats, chest pain, chest pressure, difficulty breathing, uncontrolled nausea/vomiting, rash, wheezing, passing out or nearly passing out, bleeding, black/bloody bowel movements, or other new or concerning symptoms please call your primary care physician, or call 911 for re-evaluation in the emergency department if you are very concerned. Pending Studies at Discharge: No Stand-Alone Forms: [facility], Smoking Cessation Medications and DC Order Prescriptions: New oxycodone-acetaminophen [Percocet] 5-325 mg tablet 1 tab PO Q6H PRN (Reason: pain) Qty: 10 0RF polysaccharide iron complex 150 mg iron capsule 150 mg PO DAILY Qty: 30 0RF vancomycin 125 mg capsule 125 mg PO DAILY 9 Days Qty: 9 0RF Continued (DME) blood-glucose meter [OneTouch Verio Reflect Meter] [facility] [place] See Rx Instructions miscellaneous .MEDSUPPLY Qty: 1 0RF Rx Instructions: As directed [id number] 1 mg tablet 1 tab PO DAILY famotidine [Pepcid] 20 mg tablet 20 mg PO DAILY PRN (Reason: Heartburn) folic acid 1 mg tablet 1 mg PO DAILY Rx Instructions: [place] [facility] [place] 03/14/24 ondansetron 4 mg tablet,disintegrating 4 mg PO Q8H (DME) Ketone Urine Test Strip See Rx Instructions .MEDSUPPLY Qty: 50 5RF Rx Instructions: As directed to check ketones in urine once a day in the morning (DME) OneTouch Verio test strips Strip See Rx Instructions .MEDSUPPLY Qty: 150 5RF Rx Instructions: check blood sugars 4 times a day (DME) lancets [OneTouch Delica Plus Lancet] 33 gauge misc See Rx Instructions .MEDSUPPLY Qty: 150 5RF Rx Instructions: As directed check blood sugars 4 times a day Tylenol 1,000 mg PO DIRECTED PRN (Reason: Pain) Discontinued cephalexin 500 mg capsule 500 mg PO QPM Qty: 40 0RF Discharge Orders: Discharge Order (Routine); Ordered 04/10/24 Ordered By: Chris Lieberman/Other Patient Handouts: After a , Urinary Tract Infections in Women, Kidney Infec Dc, Feeling Healthy Admission Data Admit Date/Time: 04/05/24 11:47 Attending Provider: Tani Cobb Admit Provider: Tani Cobb Primary Care Provider: Peter [facility] Other Providers: Arsalan Joe; Marino Cyr; Oh Plata; Ronel May; Doc Godoy; Kateryna Perry; Karen Marshall; Chris Roy V.; Dee Jean-Baptiste Other Interventions: Discharge Summary Assessment (RN) Last Done: 04/10/24 11:05 Coding Level of Care Code 09588 IN/OBS DISCH 30 MIN/LESS Diagnoses care and examination Z39.2 Pyelonephritis N12 COVID U07.1
== END 2024-04-10 12:45 | disposition home or self-care (01) | DRG 786 ==
LOC: ED 09:06 → 4S1 11:47 → 4E1 04-06 15:45